=== PATIENT | female | born 1930 | race Hispanic/Latino ===

== ENCOUNTER 2017-07-29 04:59 | Inpatient (IN) | payer MEDICARE, OTHER ==
[~2017-07-29] VITALS: Ht 154.9 cm; Wt 39.9 kg
[2017-07-29] VITALS (7 sets, daily range): BP systolic 88–100; BP diastolic 40–60
[~2017-07-29 04:59] MED LIST: CRESTOR10 MG PO; FOSAMAX70 MG PO; XALATAN2.5 ML OU
[2017-07-29] MEDS ORDERED: ONDANSETRON HCL INJ 2 MG/ML VIAL IV STA (05:09)
[2017-07-29] MEDS ORDERED: ACETAMINOPHEN 1000 MG/100 ML IV STA (05:09)
[2017-07-29] MEDS ORDERED: SODIUM CHLORIDE 0.9% 1000ML 1,000 ML IV ONE ×2 (05:15→05:30)
[2017-07-29] MEDS ORDERED: LEVOFLOXACIN 500MG/D5W 100ML 100 ML IV STA (05:18)
[2017-07-29 05:26] LABS: BASOPHILS % 0.2 % (0.0-1.0); LYMPHOCYTES # (AUTO) 0.2 (1.0-3.2); LYMPHOCYTES % 1.6 % (18.0-39.1); MEAN CORPUSCULAR HEMOGLOBIN 33.7 pg (28-32); MEAN CORPUSCULAR HGB CONC 34.3 g/dL (31-35); MEAN CORPUSCULAR VOLUME 98.3 fL (81-99); MONOCYTES # (AUTO) 0.3 (0.2-0.8); MONOCYTES % 2.4 % (4.4-11.3); NEUTROPHILS # (AUTO) 12.6 (2.1-6.9); NEUTROPHILS % 95.3 % (38.7-80.0); PLATELET COUNT 245 x10e3/uL (140-360); RED BLOOD COUNT 3.56 x10e6/uL (3.6-5.1); RED CELL DISTRIBUTION WIDTH 12.8 % (11.7-14.4)
[2017-07-29 05:34] LABS: CLARITY,URINE CLEAR (CLEAR); COLOR,URINE YELLOW (YELLOW)
[2017-07-29 05:35] LABS: BILIRUBIN,URINE 1+ (NEGATIVE); KETONES,URINE 1+ (NEGATIVE); LEUKOCYTE ESTERASE ,URINE 2+ (NEGATIVE); NITRITE,URINE POSITIVE (NEGATIVE); PROTEIN,URINE DIPSTICK NEGATIVE (NEGATIVE); URINE UROBILINOGEN 1 mg/dL (0.2 - 1)
[2017-07-29] MEDS ORDERED: BETIMOL5 M1 OU (05:37)
[2017-07-29] MEDS ORDERED: ASPIR 8181 MG PO (05:37)
[2017-07-29] MEDS ORDERED: MULTIVITAMINS1 EAC7 PO (05:37)
[2017-07-29] MEDS ORDERED: SEROQUEL25 MG PO (05:37)
[2017-07-29] MEDS ORDERED: LIPITOR20 MG PO (05:37)
[2017-07-29] MEDS ORDERED: CELEXA20 MG PO (05:37)
[2017-07-29 05:38] LABS: BACTERIA,URINE FEW /HPF; EPITHELIAL CELLS,URINE FEW /LPF; MUCUS,URINE MODERATE (RARE)
[2017-07-29 05:45] LABS: ALANINE AMINOTRANSFERASE 25 IU/L (0-55); ALBUMIN 3.5 g/dL (3.5-5.0); ALBUMIN/GLOBULIN RATIO 0.9 (0.8-2.0); ALKALINE PHOSPHATASE 62 IU/L (40-150); ANION GAP 12.3 mmol/L (8-16); BLOOD UREA NITROGEN 12 mg/dL (7-26); BUN/CREATININE RATIO 18 (6-25); CALCIUM 9.3 mg/dL (8.4-10.2); CARBON DIOXIDE 27 mmol/L (22-29); CHLORIDE 102 mmol/L (98-107); CREATINE KINASE 23 IU/L (29-168); CREATININE, SERUM 0.68 mg/dL (0.57-1.11); EST GLOMERULAR FILTRATION RATE > 60 ML/MIN (60-); GLUCOSE 123 mg/dL (74-118); POTASSIUM 3.3 mmol/L (3.5-5.1); SODIUM 138 mmol/L (136-145)
[2017-07-29] MEDS ORDERED: LEVOFLOXACIN 500MG/D5W 100ML 100 ML IV ONE (05:46)
[2017-07-29] MEDS ORDERED: SODIUM CHLORIDE 0.9% 1000ML 1,000 ML ONE (05:46)
[2017-07-29] MEDS ORDERED: SODIUM CHLORIDE 0.9% 50ML 50 ML ONE (06:21)
[2017-07-29] MEDS ORDERED: IOPAMIDOL 370 MG/ML 200 ML INFUS..BTL INJ ONE (06:21)
--- NOTE | 2017-07-29 07:16 | Diagnostic Imaging Report ---
Examination: Single AP view of the chest. COMPARISON: December 02, 2013 INDICATION: Fever, vomiting, diarrhea DISCUSSION: Lines/tubes: None. Lungs: Diffuse reticular opacities throughout the lung. Pleura: There is no pleural effusion or pneumothorax. Heart and mediastinum: Heart size normal. Aortic calcifications. Bones and soft tissues: No acute bony abnormalities. IMPRESSION: 1. Diffuse interstitial opacities may reflect edema or other interstitial process. No consolidative pneumonia. Signed by: Dr. Meño Brunner M.D. on 07/29/2017 7:12 AM
--- NOTE | 2017-07-29 07:22 | Diagnostic Imaging Report ---
EXAMINATION: CT of the abdomen and pelvis with contrast. TECHNIQUE: Helical CT images of the abdomen and pelvis were performed from the lung bases to the lesser trochanters after the intravenous administration of 100 cc of Isovue 370 and the oral administration of none. Coronal and sagittal reformatted images were obtained. COMPARISON: None CLINICAL HISTORY:Fever, vomiting, diarrhea DISCUSSION: ABDOMEN/PELVIS: LOWER THORAX:Lower lobe atelectasis. Prominent interstitial markings. HEPATOBILIARY: 2.6 cm peripherally nodular enhancing lesion right hepatic lobe compatible with a hemangioma. Cyst in the left hepatic lobe. No intra-or extrahepatic biliary ductal dilation. Cholecystectomy. SPLEEN: No splenomegaly. PANCREAS: No focal masses or ductal dilatation. ADRENALS: No adrenal nodules. KIDNEYS/URETERS: No hydronephrosis, stones, or solid mass lesions. PELVIC ORGANS/BLADDER: Guzman catheter within the bladder. Pessary. PERITONEUM/RETROPERITONEUM: No free air or fluid. LYMPH NODES: No intra-abdominal, retroperitoneal, pelvic or inguinal lymphadenopathy. VESSELS: Vascular calcifications. GI TRACT: No distention or wall thickening. Diverticulosis. No inflammatory change. BONES AND SOFT TISSUE: Lower lumbar spondylosis. No soft tissue abnormalities. IMPRESSION: No acute CT finding. Sigmoid diverticulosis. Signed by: Dr. Meño Brunner M.D. on 07/29/2017 7:19 AM
[2017-07-29] MEDS ORDERED: SODIUM CHLORIDE 0.9% 1000ML 1,000 ML IV SCH ×2 (08:33→21:45)
[2017-07-29] MEDS ORDERED: ONDANSETRON HCL INJ 2 MG/ML VIAL IV PRN (08:45)
[2017-07-29] MEDS ORDERED: CEFTRIAXONE SOD 1 GM VIAL IV ONE (08:45)
--- OUTSIDE RECORDS SUMMARY | 2017-07-29 08:46 | XMS REPORT ---
Author Author [facility] Address Unknown Phone Unavailable Care Team Providers Care Intranet Specialist Name Role Phone CATARINO SHOEMAKER Unavailable Unavailable Problems This patient has no known problems. Allergies, Adverse Reactions, Alerts This patient has no known allergies or adverse reactions. Medications This patient has no known medications. Results Test Description Test Time Test Comments Text Results Atomic Results Result Comments CHEST SINGLE (PORTABLE) [place] [address] Patient Name: FLORENCIO BEDOLLA MR #: [id number] : 1930 Age/Sex: 87/F Req #: [id number] Adm Physician: Ordered by: CATARINO SHOEMAKER MD Report #: [id number] Location: ER Room/Bed: ___ Procedure: [id number] DX/CHEST SINGLE (PORTABLE) Exam Date: 07/29/17 Exam Time: 0645 REPORT STATUS: Signed Examination: Single AP view of the chest. COMPARISON: December 02, 2013 INDICATION: Fever, vomiting, diarrhea DISCUSSION: Lines/tubes: None. Lungs: Diffuse reticular opacities throughout the lung. Pleura : There is no pleural effusion or pneumothorax. Heart and mediastinum: Heart size normal. Aortic calcifications. Bones and soft tissues: No acute bony abnormalities. IMPRESSION: 1. Diffuse interstitial opacities may reflect edema or other interstitial process. No consolidative pneumonia. Signed by: Dr. Berenice Mesa M.D. on 07/29/2017 7:12 AM Dictated By: BERENICE MESA MD 1 Transcribed By: ALEC on 07/29/17711 COPY TO: CATARINO SHOEMAKER MD CT ABDOMEN/PELVIS W [place] [address] Patient Name: FLORENCIO BEDOLLA MR #: [id number] : 1930 Age/Sex: 87/F Req #: [id number] Adm Physician: Ordered by: CATARINO SHOEMAKER MD Report # : [id number] Location: ER Room/Bed: Procedure: [id number] CT/CT ABDOMEN/PELVIS W Exam Date: 07/29/17 Exam Time: 0630 REPORT STATUS: Signed EXAMINATION: CT of the abdomen and pelvis with contrast. TECHNIQUE: Helical CT images of the abdomen and pelvis were performed from the lung bases to the lesser trochanters after the intravenous administration of 100 cc of Isovue 370 and the oral administration of none. Coronal and sagittal reformatted images were obtained. COMPARISON: None CLINICAL HISTORY:Fever, vomiting, diarrhea DISCUSSION: ABDOMEN/PELVIS: LOWER THORAX:Lower lobe atelectasis. Prominent interstitial markings. HEPATOBILIARY: 2.6 cm peripherally nodular enhancing lesion right hepatic lobe compatible with a hemangioma. Cyst in the left hepatic lobe. No intra-or extrahepatic biliary ductal dilation. Cholecystectomy. SPLEEN: No splenomegaly. PANCREAS : No focal masses or ductal dilatation. ADRENALS: No adrenal nodules. KIDNEYS/URETERS: No hydronephrosis, stones, or solid mass lesions. PELVIC ORGANS/BLADDER: Guzman catheter within the bladder. Pessary. PERITONEUM/RETROPERITONEUM: No free air or fluid. LYMPH NODES: No intra- abdominal, retroperitoneal, pelvic or inguinal lymphadenopathy. VESSELS: Vascular calcifications. GI TRACT: No distention or wall thickening. Diverticulosis. No inflammatory change. BONES AND SOFT TISSUE: Lower lumbar spondylosis. No soft tissue abnormalities. IMPRESSION: No acute CT finding. Sigmoid diverticulosis. Signed by: Dr. Berenice Mesa M.D. on 07/29/2017 7:19 AM Dictated By: BERENICE MESA MD 8 Transcribed By: ALEC on 07/29/17718 COPY TO: CATARINO SHOEMAKER MD
[2017-07-29] MEDS ORDERED: ACETAMINOPHEN 325 MG TAB PO PRN (09:30)
[2017-07-29] MEDS: SOD CHL 0.45%/POT CHL 20MEQ 1,000 ML IV SCH ×2 (12:15→21:27)
--- NOTE | 2017-07-29 14:16 | History and Physical ---
PRIMARY CARE PHYSICIAN: . CHIEF COMPLAINT: Delirium from baseline Alzheimer dementia. Hematuria. Urinary tract infection, recurrent. HISTORY: This is an 87-year-old female with recurrent urinary tract infection. The patient had multiple antibiotic in the past. This time, she received Macrobid and had allergic reaction. She came to the emergency room at this time with a fever of 102.7. The patient's urinalysis is showing that she has significant infection. Her chemistry showed low sodium level but otherwise. WBC was 13.2. Microbiology is still pending. The patient did have imaging done, CT abdomen and pelvis with contrast, which has shown that she has no acute CT finding with sigmoid diverticulosis without diverticulitis. The patient is otherwise stable at this time. PAST MEDICAL HISTORY: Alzheimer dementia, recurrent urinary tract infection, osteoporosis, depression, cataract, and dementia with behavioral disturbance. HOME MEDICATIONS: Alendronate, aspirin, Lipitor, Celexa, Xalatan eyedrop, multivitamins, Seroquel, and timolol. ALLERGIES: NITROFURANTOIN AND PENICILLIN. SOCIAL HISTORY: Patient lives at home with her family, very well family support. She does not smoke or use alcohol. No recreational drugs. REVIEW OF SYSTEMS: Difficult to assess due to the patient's dementia. PHYSICAL EXAMINATION GENERAL: The patient is not in acute distress. She is awake. VITAL SIGNS: T-max is 102.7, blood pressure 101/50 down to 98/47. HEENT: Normocephalic, atraumatic. Anicteric. NECK: Supple grossly. PULMONARY: Diminished breath sounds. CARDIOVASCULAR: S1 and S2. Regular rate and rhythm. ABDOMEN: Soft. Tenderness suprapubic. EXTREMITIES: No cyanosis or edema. Guzman catheter in place. NEUROLOGIC: No focal deficit. LABORATORY: Sodium 138, potassium 3.3, chloride 102, bicarb 27, BUN 12, creatinine 0.7, and glucose 123. WBC 13.2, hemoglobin 12, hematocrit 35, and platelets 245. IMPRESSION 1. Sepsis, responded to IV fluid therefore no shock. 2. Fever and urinary tract infection. 3. 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 PLAN: Continue with IV antibiotics. Rocephin 1 gram q.12. Continue with IV fluid support. Replace electrolytes. We will monitor the patient closely. Job#: [id number] ANABELL
[2017-07-29] MEDS ORDERED: NON-FORMULARY MEDICATION (Timolol (Betimol) 1 DROP) OU SCH (17:00)
[2017-07-29] MEDS ORDERED: TIMOLOL MALEATE(OPTHALMIC) 1 EA BTL OP SCH (18:00)
[2017-07-29] MEDS: TIMOLOL MALEATE 0.5% OPTH DRP 5 ML BTL OU SCH (19:20)
[2017-07-29] MEDS: ATORVASTATIN 20 MG TAB PO SCH (21:27)
[2017-07-29] MEDS: CEFTRIAXONE SOD 1 GM VIAL IV SCH (21:27)
[2017-07-29] MEDS: LATANOPROST(OPTH) 2.5 ML BTL OU SCH (21:27)
[2017-07-30 01:31] VITALS: BP 95/50
[2017-07-30 06:24] VITALS: BP 111/59
--- NOTE | 2017-07-30 06:50 | Diagnostic Imaging Report ---
Examination: Single AP view of the chest. COMPARISON: 07/29/2017 INDICATION: Fluid overload DISCUSSION: Lines/tubes: None. Lungs: Diffuse reticular opacities throughout the lung, slightly improved. Pleura: There is no pleural effusion or pneumothorax. Heart and mediastinum: Heart size normal. Aortic calcifications. Bones and soft tissues: No acute bony abnormalities. Degenerative changes in the thoracic spine. IMPRESSION: 1. Minimally improved interstitial edema Signed by: Dr. Ky Robbins M.D. on 07/30/2017 6:47 AM
[2017-07-30 07:48] LABS: BASOPHILS % 0.2 % (0.0-1.0); EOSINOPHILS # (AUTO) 0.1 (0.0-0.4); HEMOGLOBIN 9.2 g/dL (12.0-16.0); LYMPHOCYTES # (AUTO) 0.8 (1.0-3.2); LYMPHOCYTES % 6.5 % (18.0-39.1); MEAN CORPUSCULAR HEMOGLOBIN 33.9 pg (28-32); MEAN CORPUSCULAR HGB CONC 32.9 g/dL (31-35); MEAN CORPUSCULAR VOLUME 103.3 fL (81-99); MONOCYTES # (AUTO) 0.3 (0.2-0.8); MONOCYTES % 2.8 % (4.4-11.3); NEUTROPHILS # (AUTO) 10.9 (2.1-6.9); NEUTROPHILS % 88.4 % (38.7-80.0); PLATELET COUNT 187 x10e3/uL (140-360); RED BLOOD COUNT 2.71 x10e6/uL (3.6-5.1); RED CELL DISTRIBUTION WIDTH 13.2 % (11.7-14.4)
[2017-07-30 08:00] VITALS: BP 111/59
[2017-07-30] MEDS: SOD CHL 0.45%/POT CHL 20MEQ 1,000 ML IV SCH (08:15)
[2017-07-30 08:25] LABS: ANION GAP 9.3 mmol/L (8-16); BLOOD UREA NITROGEN 5 mg/dL (7-26); BUN/CREATININE RATIO 10 (6-25); CARBON DIOXIDE 25 mmol/L (22-29); CHLORIDE 107 mmol/L (98-107); EST GLOMERULAR FILTRATION RATE > 60 ML/MIN (60-); GLUCOSE 97 mg/dL (74-118); POTASSIUM 3.3 mmol/L (3.5-5.1); SODIUM 138 mmol/L (136-145)
[2017-07-30] MEDS: CEFTRIAXONE SOD 1 GM VIAL IV SCH ×2 (08:38→21:31)
[2017-07-30] MEDS: TIMOLOL MALEATE 0.5% OPTH DRP 5 ML BTL OU SCH ×2 (08:38→17:00)
[2017-07-30] MEDS: CITALOPRAM HYDROBROMIDE 20 MG TAB PO SCH (08:39)
[2017-07-30] MEDS: ASPIRIN 81 MG CHEW TAB PO SCH (08:39)
[2017-07-30] MEDS: MULTIVITAMINS/MINERALS TAB PO SCH (08:39)
[2017-07-30] MEDS ORDERED: CEFTRIAXONE SOD 1 GM VIAL IV SCH (08:45)
[2017-07-30 08:57] LABS: FOLATE 3.2 ng/mL (7.0-15.4)
[2017-07-30] MEDS ORDERED: POTASSIUM CHLORIDE 10 MEQ TABCR PO ONE (09:00)
[2017-07-30] MEDS: CYANOCOBALAMIN INJ 1,000 MCG/ML VIAL IM SCH (10:15)
[2017-07-30] MEDS: FOLIC ACID/CYANOCOB/PYRIDOXINE TAB PO SCH (10:15)
[2017-07-30] MEDS: THIAMINE HCL INJ 100 MG/ML 2ML VIAL IV SCH (10:15)
[2017-07-30 12:00] VITALS: BP 127/80
[2017-07-30] MEDS ORDERED: ACETAMINOPHEN 325 MG TAB PO PRN (13:30)
[2017-07-30 16:00] VITALS: BP 111/61
[2017-07-30] MEDS: ZIPRASIDONE 20 MG VIAL IM PRN (18:45)
[2017-07-30 20:33] VITALS: BP 139/83
[2017-07-30] MEDS: ATORVASTATIN 20 MG TAB PO SCH (21:00)
[2017-07-30] MEDS: LATANOPROST(OPTH) 2.5 ML BTL OU SCH (21:31)
[2017-07-30] MEDS ORDERED: SODIUM CHLORIDE 0.9% 1000ML 1,000 ML IV SCH (21:45)
[2017-07-31 01:01] VITALS: BP 147/71
[2017-07-31] MEDS: ZIPRASIDONE 20 MG VIAL IM PRN (04:02)
[2017-07-31 06:15] VITALS: BP 140/72
[2017-07-31] MEDS: THIAMINE HCL INJ 100 MG/ML 2ML VIAL IV SCH (08:38)
[2017-07-31] MEDS: CEFTRIAXONE SOD 1 GM VIAL IV SCH ×2 (08:38→21:00)
[2017-07-31] MEDS: CYANOCOBALAMIN INJ 1,000 MCG/ML VIAL IM SCH (08:38)
[2017-07-31] MEDS: TIMOLOL MALEATE 0.5% OPTH DRP 5 ML BTL OU SCH ×2 (08:39→17:00)
[2017-07-31] MEDS: MULTIVITAMINS/MINERALS TAB PO SCH (08:39)
[2017-07-31] MEDS: FOLIC ACID/CYANOCOB/PYRIDOXINE TAB PO SCH (08:39)
[2017-07-31] MEDS: CITALOPRAM HYDROBROMIDE 20 MG TAB PO SCH (08:39)
[2017-07-31] MEDS: ASPIRIN 81 MG CHEW TAB PO SCH (08:39)
[2017-07-31] MEDS ORDERED: POTASSIUM CHLORIDE 10 MEQ TABCR PO NR (10:00)
[2017-07-31] MEDS: MEMANTINE 10 MG TAB PO SCH ×2 (10:03→16:59)
[2017-07-31 12:00] VITALS: BP 104/66
[2017-07-31 16:00] VITALS: BP 157/87
[2017-07-31 20:30] VITALS: BP 148/88
[2017-07-31] MEDS: ATORVASTATIN 20 MG TAB PO SCH (21:00)
[2017-07-31] MEDS: LATANOPROST(OPTH) 2.5 ML BTL OU SCH (21:00)
[2017-08-01] VITALS (7 sets, daily range): BP systolic 98–152; BP diastolic 60–81
[2017-08-01] MEDS: CEFTRIAXONE SOD 1 GM VIAL IV SCH ×2 (08:20→21:40)
[2017-08-01] MEDS: CYANOCOBALAMIN INJ 1,000 MCG/ML VIAL IM SCH (08:20)
[2017-08-01] MEDS: FOLIC ACID/CYANOCOB/PYRIDOXINE TAB PO SCH (08:20)
[2017-08-01] MEDS: TIMOLOL MALEATE 0.5% OPTH DRP 5 ML BTL OU SCH ×2 (08:20→16:28)
[2017-08-01] MEDS: ASPIRIN 81 MG CHEW TAB PO SCH (08:20)
[2017-08-01] MEDS: THIAMINE HCL INJ 100 MG/ML 2ML VIAL IV SCH (08:20)
[2017-08-01] MEDS: MEMANTINE 10 MG TAB PO SCH ×2 (08:20→16:28)
[2017-08-01] MEDS: MULTIVITAMINS/MINERALS TAB PO SCH (08:20)
[2017-08-01] MEDS: LATANOPROST(OPTH) 2.5 ML BTL OU SCH (21:40)
[2017-08-01] MEDS: QUETIAPINE FUMARATE 25 MG TAB PO PRN (21:40)
[2017-08-01] MEDS: ATORVASTATIN 20 MG TAB PO SCH (21:40)
[2017-08-02] VITALS (8 sets, daily range): BP systolic 106–136; BP diastolic 56–74
[2017-08-02] MEDS: CEFTRIAXONE SOD 1 GM VIAL IV SCH ×2 (08:56→21:30)
[2017-08-02] MEDS: TIMOLOL MALEATE 0.5% OPTH DRP 5 ML BTL OU SCH ×2 (08:56→17:24)
[2017-08-02] MEDS: MULTIVITAMINS/MINERALS TAB PO SCH (08:56)
[2017-08-02] MEDS: THIAMINE HCL INJ 100 MG/ML 2ML VIAL IV SCH (08:56)
[2017-08-02] MEDS: ASPIRIN 81 MG CHEW TAB PO SCH (08:56)
[2017-08-02] MEDS: CYANOCOBALAMIN INJ 1,000 MCG/ML VIAL IM SCH (08:56)
[2017-08-02] MEDS: MEMANTINE 10 MG TAB PO SCH ×2 (08:56→17:24)
[2017-08-02] MEDS: FOLIC ACID/CYANOCOB/PYRIDOXINE TAB PO SCH (08:57)
[2017-08-02 09:28] LABS: BASOPHILS % 0.2 % (0.0-1.0); EOSINOPHILS % 0.5 % (0.0-6.0); HEMATOCRIT 33.1 % (34.2-44.1); LYMPHOCYTES # (AUTO) 1.3 (1.0-3.2); LYMPHOCYTES % 20.6 % (18.0-39.1); MEAN CORPUSCULAR HEMOGLOBIN 33.7 pg (28-32); MEAN CORPUSCULAR HGB CONC 33.2 g/dL (31-35); MEAN CORPUSCULAR VOLUME 101.5 fL (81-99); MONOCYTES # (AUTO) 0.5 (0.2-0.8); MONOCYTES % 7.8 % (4.4-11.3); NEUTROPHILS # (AUTO) 4.4 (2.1-6.9); NEUTROPHILS % 70.6 % (38.7-80.0); PLATELET COUNT 277 x10e3/uL (140-360); RED BLOOD COUNT 3.26 x10e6/uL (3.6-5.1); RED CELL DISTRIBUTION WIDTH 12.6 % (11.7-14.4)
[2017-08-02 09:44] LABS: ANION GAP 11.6 mmol/L (8-16); BLOOD UREA NITROGEN 10 mg/dL (7-26); BUN/CREATININE RATIO 17 (6-25); CALCIUM 8.8 mg/dL (8.4-10.2); CARBON DIOXIDE 29 mmol/L (22-29); CHLORIDE 101 mmol/L (98-107); CREATININE, SERUM 0.59 mg/dL (0.57-1.11); EST GLOMERULAR FILTRATION RATE > 60 ML/MIN (60-); GLUCOSE 142 mg/dL (74-118); POTASSIUM 3.6 mmol/L (3.5-5.1); SODIUM 138 mmol/L (136-145)
[2017-08-02] MEDS: QUETIAPINE FUMARATE 25 MG TAB PO PRN (21:30)
[2017-08-02] MEDS: LATANOPROST(OPTH) 2.5 ML BTL OU SCH (21:30)
[2017-08-02] MEDS: ATORVASTATIN 20 MG TAB PO SCH (21:30)
[2017-08-03 00:03] VITALS: BP 118/67
[2017-08-03 05:36] VITALS: BP 121/64
[2017-08-03 08:32] VITALS: BP 113/56
[2017-08-03 08:57] VITALS: BP 113/56
[2017-08-03] MEDS: TIMOLOL MALEATE 0.5% OPTH DRP 5 ML BTL OU SCH (09:10)
[2017-08-03] MEDS: MULTIVITAMINS/MINERALS TAB PO SCH (09:10)
[2017-08-03] MEDS: ASPIRIN 81 MG CHEW TAB PO SCH (09:10)
[2017-08-03] MEDS: CEFTRIAXONE SOD 1 GM VIAL IV SCH (09:10)
[2017-08-03] MEDS: FOLIC ACID/CYANOCOB/PYRIDOXINE TAB PO SCH (09:11)
[2017-08-03] MEDS: MEMANTINE 10 MG TAB PO SCH (09:11)
[2017-08-03] MEDS: CYANOCOBALAMIN INJ 1,000 MCG/ML VIAL IM SCH (09:11)
[2017-08-03] MEDS: THIAMINE HCL INJ 100 MG/ML 2ML VIAL IV SCH (09:11)
--- NOTE | 2017-08-03 10:06 | Discharge Summary ---
PRIMARY CARE PHYSICIAN: Dr. Contreras Harris FINAL DIAGNOSES 1. Urinary tract infection associated with confusion and delirium from baseline dementia. 2. Progressive Alzheimer dementia. 3. Electrolyte disorder, corrected. 4. 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 SUMMARY: This is an 87-year-old female who came in with confusion and agitation. She does have a urinary tract infection. Patient was given antibiotics. She is doing much better now. The patient is stable. She is comfortable. She does have B12 deficiency. On evaluation, her B12 level was 189. B12 and folic acid was given. Patient is otherwise stable. Electrolyte correction is done. The urine culture final did not have any significant growth. It was 10,000-50,000 colony unit. Blood cultures are negative. The patient is stable. She will go home today on: 1. B12 1000 mcg IM every 2 weeks with syringes and needles needed. 2. Namenda 5 mg b.i.d. 3. Folic acid 1 mg 1 b.i.d. The patient is stable. She will go home today. Follow up with family physician next week. I offered Hospice care for the patient's advanced dementia, but the patient and family denied for now. I also requested for home health for the patient to go home. The patient is stable and discharged home today. Job#: [id number] EDEL
[2017-08-03 12:38] VITALS: BP 102/55
[2017-08-03] MEDS ORDERED: FOLIC ACID1 MG PO (13:42)
[2017-08-03] MEDS ORDERED: B12 1000MCG (13:45)
[2017-08-03] MEDS ORDERED: NAMENDA10 MG PO (13:45)
[2017-08-04] MEDS ORDERED: THIAMINE HCL 100 MG TAB PO SCH (09:00)
== END 2017-08-03 14:05 | disposition home or self-care (01) | DRG 871 ==
LOC: ER 04:59 → ERHOLD 08:42 → MED/SURG2 09:20 → OBSVTOIN 12:08 → MED/SURG2 07-30 10:57
PROVIDERS: ADMIT Internal Medicine; ATTEND Internal Medicine
DX: A41.9 Sepsis, unspecified organism (principal); G93.40 Encephalopathy, unspecified; E87.8 Other disorders of electrolyte and fluid balance, not elsewhere classified; N39.0 Urinary tract infection, site not specified; G30.9 Alzheimer's disease, unspecified; F05 Delirium due to known physiological condition; F02.81 Dementia in other diseases classified elsewhere, unspecified severity, with behavioral disturbance; Z79.899 Other long term (current) drug therapy; Z66 Do not resuscitate; E53.8 Deficiency of other specified B group vitamins; R65.20 Severe sepsis without septic shock
CPT/HCPCS: 36415; 51700; 71045; 74177; 80048; 80053; 81001; 82550; 82553; 82607; 82746; 83605; 83880; 84443; 84484; 85025; 87040; 87086; 93005; 96360; 96365; 96374; 96376; 99284; J0696; J1956; J2405; J3411; J3420; J3486; J7030; Q9967

== ENCOUNTER 2018-02-02 11:29 | Emergency (ER) | payer MEDICARE, OTHER ==
[~2018-02-02] VITALS: Ht 154.9 cm; Wt 45.8 kg
[~2018-02-02 11:29] MED LIST changes: +ASPIR 8181 MG PO; +B12 1000MCG; +BETIMOL5 M1 OU; +CELEXA20 MG PO; +FOLIC ACID1 MG PO; +LIPITOR20 MG PO; +MULTIVITAMINS1 EAC7 PO; +NAMENDA10 MG PO; +SEROQUEL25 MG PO
[2018-02-02] MEDS ORDERED: ONDANSETRON HCL INJ 2 MG/ML VIAL IV STA (11:40)
[2018-02-02] MEDS ORDERED: SODIUM CHLORIDE 0.9% 500ML 500 ML IV ONE (11:45)
[2018-02-02 12:42] LABS: BASOPHILS % 0.6 % (0.0-1.0); EOSINOPHILS # (AUTO) 0.1 (0.0-0.4); EOSINOPHILS % 1.4 % (0.0-6.0); HEMATOCRIT 38.3 % (34.2-44.1); HEMOGLOBIN 12.7 g/dL (12.0-16.0); LYMPHOCYTES # (AUTO) 1.9 (1.0-3.2); LYMPHOCYTES % 30.9 % (18.0-39.1); MEAN CORPUSCULAR HEMOGLOBIN 34.1 pg (28-32); MEAN CORPUSCULAR HGB CONC 33.2 g/dL (31-35); MONOCYTES # (AUTO) 0.4 (0.2-0.8); MONOCYTES % 6.1 % (4.4-11.3); NEUTROPHILS # (AUTO) 3.8 (2.1-6.9); NEUTROPHILS % 60.8 % (38.7-80.0); PLATELET COUNT 265 x10e3/uL (140-360); RED BLOOD COUNT 3.72 x10e6/uL (3.6-5.1); RED CELL DISTRIBUTION WIDTH 12.9 % (11.7-14.4)
[2018-02-02 12:54] LABS: ALANINE AMINOTRANSFERASE 9 IU/L (0-55); ALBUMIN 3.9 g/dL (3.5-5.0); ALKALINE PHOSPHATASE 69 IU/L (40-150); AMYLASE 97 U/L (25-125); ANION GAP 17.8 mmol/L (8-16); BLOOD UREA NITROGEN 8 mg/dL (7-26); BUN/CREATININE RATIO 12 (6-25); CALCIUM 9.6 mg/dL (8.4-10.2); CARBON DIOXIDE 24 mmol/L (22-29); CHLORIDE 102 mmol/L (98-107); CREATINE KINASE 31 IU/L (29-168); CREATININE, SERUM 0.67 mg/dL (0.57-1.11); EST GLOMERULAR FILTRATION RATE > 60 ML/MIN (60-); GLUCOSE 94 mg/dL (74-118); LIPASE 27 U/L (8-78); POTASSIUM 3.8 mmol/L (3.5-5.1); SODIUM 140 mmol/L (136-145)
[2018-02-02 13:16] LABS: BILIRUBIN,URINE NEGATIVE (NEGATIVE); CLARITY,URINE SL CLOUDY (CLEAR); COLOR,URINE YELLOW (YELLOW); KETONES,URINE NEGATIVE (NEGATIVE); LEUKOCYTE ESTERASE ,URINE 1+ (NEGATIVE); NITRITE,URINE POSITIVE (NEGATIVE); PROTEIN,URINE DIPSTICK NEGATIVE (NEGATIVE); URINE UROBILINOGEN 0.2 mg/dL (0.2 - 1)
[2018-02-02 13:20] LABS: BACTERIA,URINE MANY /HPF
[2018-02-02] MEDS ORDERED: OMEPRAZOLE40 MG PO (13:39)
[2018-02-02] MEDS ORDERED: LEXAPRO10 MG PO (13:39)
[2018-02-02] MEDS ORDERED: CEFTRIAXONE SOD 1 GM VIAL IV SCH (14:00)
[2018-02-02] MEDS ORDERED: IOPAMIDOL 370 MG/ML 200 ML INFUS..BTL INJ ONE (14:45)
[2018-02-02] MEDS ORDERED: SODIUM CHLORIDE 0.9% 50ML 50 ML ONE ×2 (14:45→15:25)
--- NOTE | 2018-02-02 14:46 | Diagnostic Imaging Report ---
EXAM: CT Abdomen and Pelvis WITH contrast INDICATION: \S\abdominal pain, IV contrast \[id number] \S\1335 COMPARISON: CT abdomen and pelvis 07/29/2017 TECHNIQUE: Abdomen and pelvis were scanned utilizing a multidetector helical scanner from the lung base to the pubic symphysis after administration of IV contrast. Coronal and sagittal reformations were obtained. Routine protocol was performed. Scan was performed when during portal venous phase. IV CONTRAST: 100 mL of Isovue-370 ORAL CONTRAST: Water RADIATION DOSE: Total DLP: 167.7 mGy*cm Estimated effective dose: (DLP x 0.015 x size factor) mSv COMPLICATIONS: None FINDINGS: LINES and TUBES: None. LOWER THORAX: Groundglass opacity with septal thickening in both lower lobes may reflect chronic pulmonary edema or early interstitial lung disease. This is unchanged. Moderate calcifications of the mitral annulus. HEPATOBILIARY: Unchanged 2.6 cm hepatic hemangioma on series 2, image 10 hypodense lesion in the left. No new lesions in the liver. No biliary ductal dilation. GALLBLADDER: Surgically absent. SPLEEN: No splenomegaly. PANCREAS: No focal masses or ductal dilatation. ADRENALS: No adrenal nodules KIDNEYS/URETERS: Kidneys enhance symmetrically. No hydronephrosis. No cystic or solid mass lesions. No stones. GI TRACT: No abnormal distention, wall thickening, or evidence of bowel obstruction. Scattered diverticulosis throughout the sigmoid colon remains stable. Appendix is normal. PELVIC ORGANS/BLADDER: Diffuse wall thickening of the urinary bladder may reflect chronic inflammation. Pessary. LYMPH NODES: No lymphadenopathy. VESSELS: Moderate atherosclerotic calcifications of the abdominal aorta and pelvic arteries without aneurysm. PERITONEUM / RETROPERITONEUM: No free air or fluid. BONES: Minimal anterolisthesis of L4 over L5 remains unchanged. Posterior disc protrusion at L4-L5 resulting in minimal spinal stenosis. Mild multilevel degenerative changes of the lumbar spine. SOFT TISSUES: Unremarkable. IMPRESSION: 1. Stable size of moderate diverticulosis without diverticulitis. 2. Chronic wall thickening of the urinary bladder may reflect chronic inflammation. Pessary in place. 3. Cholecystectomy. Signed by: Dr. Kaleigh Braun M.D. on 02/02/2018 2:43 PM
--- OUTSIDE RECORDS SUMMARY | 2018-02-06 13:20 | XMS REPORT | Summary of Care ---
Author Author [facility] [place] Organization [facility] [place] Address Unknown Phone Unavailable Encounter HQ Milantr_joe(FIN) [id number] Date(s): 11/14/14 - 11/14/14 [facility] [place] [address] [place], [place] [id number] [place] [address] [phone] Discharge Disposition: Home Attending Physician: Eze Collins MD Vital Signs No data available for this section Problem List No data available for this section Allergies, Adverse Reactions, Alerts Substance Reaction Severity Status penicillins Active Medications No data available for this section Results No data available for this section Immunizations Vaccine Date Refusal Reason influenza virus vaccine, inactivated1 07/11/13 Patient Refuses pneumococcal 23-valent vaccine2 07/11/13 Patient Refuses 1Result Comment: states she will talk to her PCP about it 2Result Comment: states she will talk to her PCP about it Procedures Procedure Date Related Diagnosis Body Site Cholecystectomy Cystoscopy Social History No data available for this section Assessment and Plan No data available for this section
--- OUTSIDE RECORDS SUMMARY | 2018-02-06 13:20 | XMS REPORT | Continuity of Care Document ---
Author Author [facility] Interface Address Unknown Phone Unavailable Problems Problem Status Onset Date Classification Date Reported Comments Source Traumatic subarachnoid hemorrhage with loss of consciousness of 30 minutes or less, initial encounter 07/07/2017 10/04/2017 [facility] Traumatic subarachnoid hemorrhage without loss of consciousness, initial encounter 07/06/2017 09/27/2017 [facility] HEMMORRHAGE Active 06/21/2017 [facility] FALL Active 06/21/2017 [facility] SI Active 06/15/2017 [facility] ACUTE UTI, ALTERED MENTAL STATUS Active 06/15/2017 [facility] FALLS, HYPOKALEMIA, HYPOMAGNESEMIA, TACH Active 07/10/2013 [facility] FALLEN 3X , HISTORY OF STROKE Active 07/10/2013 [facility] 338 - PAIN NEC Active 11/13/2012 [facility] [place] Laceration without foreign body of other part of head, initial encounter 09/27/2017 [facility] Cervicalgia 09/27/2017 [facility] 09/27/2017 [facility] in right shoulder 09/27/2017 [facility] in right elbow 09/27/2017 [facility] in left ankle and joints of left foot 09/27/2017 [facility] in right ankle and joints of right foot 09/27/2017 [facility] Alzheimer's disease, unspecified 09/27/2017 [facility] Personal history of transient ischemic attack , and cerebral infarction without residual deficits 09/27/2017 [facility] Toxic encephalopathy 09/26/2017 [facility] Moderate protein-calorie malnutrition 09/26/2017 [facility] Dehydration 09/26/2017 [facility] Dementia in other diseases classified elsewhere with behavioral disturbance 09/26/2017 [facility] Body mass index 19.9 or less, adult 09/26/2017 [facility] Unspecified Escherichia coli [E. coli] as the cause of diseases classified elsewhere 09/26/2017 [facility] Age-related osteoporosis without current pathological fracture 09/26/2017 [facility] Other specified sepsis 10/04/2017 [facility] Other frontotemporal dementia 10/04/2017 [facility] Dementia in other diseases classified elsewhere without behavioral disturbance 10/04/2017 [facility] Severe sepsis without septic shock 10/04/2017 [facility] Urinary tract infection, site not specified 10/04/2017 [facility] Hypo-osmolality and hyponatremia 10/04/2017 [facility] Encounter for immunization 10/04/2017 [facility] Do not resuscitate 10/04/2017 [facility] Hyperlipidemia, unspecified 10/04/2017 [facility] Coma scale, best verbal response, confused conversation, at arrival to emergency department 10/04/2017 [facility] Essential hypertension 10/04/2017 [facility] Fall on same level, unspecified, initial encounter 10/04/2017 [facility] Allergy status to penicillin 10/04/2017 [facility] Unspecified glaucoma 10/04/2017 [facility] Hypokalemia 10/04/2017 [facility] Coma scale, best motor response, obeys commands, at arrival to emergency department 10/04/2017 [facility] Coma scale, eyes open, spontaneous, at arrival to emergency department 10/04/2017 [facility] Moderate protein-calorie malnutrition Active Problem 10/04/2017 [facility] TRAUM SUBRAC HEM W LOC OF UNSP DURATION, Active [facility] URINARY TRACT INFECTION, SITE NOT SPECIF Active [facility] ALTERED MENTAL STATUS, UNSPECIFIED Active [facility] Medications Medication Details Route Status Patient Instructions Ordering Provider Order Date Source pregabalin 100 mg oral capsule 100 mg=1 cap, PO, Q12H, # 60 cap, 0 Refill(s) Active 06/28/2017 [facility] tramadol hydrochloride 50 MG Oral Tablet 50 mg=1 tab, PO, Q6H, PRN Pain Score 6-10, X 3 day, # 5 tab, 0 Refill(s) No Longer Active 06/28/2017 [facility] Cefuroxime 500 MG Oral Tablet [Ceftin] 500 mg=1 tab, PO, BID, X 1 day, # 2 tab, 0 Refill(s), Pharmacy: [facility]/pharmacy #[id number] No Longer Active 06/28/2017 [facility] Lyrica 100 mg, 1 cap, Route: PO, Drug form: CAP, Q12H, Dosing Weight 45.909, kg, Start date: 06/26/17 21:00:00 MANUFACTURE SPECIALIST, Duration: 30 day, Stop date: 07/26/17 9:00:00 CDTNotes: (Same as: Lyrica) No Longer Active 06/27/2017 [facility] Milk of Magnesia 60 ml, Route: PO, Drug Form: SUSP, Dosing Weight 46.364, kg, ONCE, Start date: 06/26/17 15:56:00 MANUFACTURE SPECIALIST, Stop date: 06/26/17 15:56:00 CSTNotes: (Same as: Milk of Magnesia, MOM) Inactive 06/26/2017 [facility] Ceftriaxone 1 gm, Route: IVPB, Drug form: PDR/INJ, [id number], Dosing Weight 45.909, kg, Start date: 06/25/17 17:00:00 MANUFACTURE SPECIALIST, Duration: 4 day, Stop date: 06/28/17 17:00:00 MANUFACTURE SPECIALIST, ABX Indication: Urinary Tract InfectionNotes: (Same As: Rocephin). Use with 100 mL NS and infuse over 30 min MEDICATION WASTE Product Size: 1000 mg Product Wasted: ___ mg No Longer Active 06/25/2017 [facility] Vancomycin 750 mg, Route: IVPB, Q24H, Dosing Weight 45.909, kg, Start date: 06/24/17 10:00:00 MANUFACTURE SPECIALIST, Duration: 10 day, Stop date: 07/03/17 10:00:00 CDT, ABX Indication: Other (specify in Comments)Notes: TIME CRITICAL MEDICATION (Same As: Vancocin) Infusion rate 2001 mg: infuse over 2.5 hours For adult patients only: Round to nearest 250 mg per Medical Staff approval MEDICATION WASTE Product Size: 1000 mg Product Wasted: ___ mg No Longer Active 06/24/2017 [facility] Lyrica 75 mg, 1 cap, Route: PO, Drug form: CAP, Q12H, Dosing Weight 45.909, kg, Start date: 06/24/17 9:00:00 MANUFACTURE SPECIALIST, Duration: 30 day, Stop date: 07/23/17 21:00:00 CDTNotes: (Same as: Lyrica) No Longer Active 06/24/2017 [facility] tramadol hydrochloride 50 MG Oral Tablet 50 mg, 1 tab, Route: PO, Drug form: TAB, Q6H, Dosing Weight 45.909, kg, PRN Pain Score 6-10, Start date: 06/24/17 7:29:00 MANUFACTURE SPECIALIST, Duration: 30 day, Stop date: 07/24/17 7:28:00 CDTNotes: Not to exceed 400mg/day. (Same As: Ultram) No Longer Active 06/24/2017 [facility] cefepime 1 gm, Route: IVPB, Drug form: INJ, Q8Hnow, Dosing Weight 45.909, kg, (CrCl 30 - 49 ml/min), Start date: 06/23/17 10:00:00 MANUFACTURE SPECIALIST, Duration: 7 day, Stop date: 06/30/17 2:00:00 MANUFACTURE SPECIALIST, ABX Indication: Urinary Tract InfectionNotes: (Same As: Maxipime) MEDICATION WASTE Product Size: 1000 mg Product Wasted: _0__ mg No Longer Active 06/23/2017 [facility] Potassium Chloride 40 mEq, Route: PO, Drug form: ERTAB, ONCE, Dosing Weight 45.909, kg, Start date: 06/23/17 10:00:00 MANUFACTURE SPECIALIST, Stop date: 06/23/17 10:00:00 MANUFACTURE SPECIALIST Inactive 06/23/2017 [facility] vancomycin + Sodium Chloride 0.9% IV 250 mL 1.25 gm, Route: IVPB, ONCE, Priority: STAT, Start date: 06/23/17 9:58:00 MANUFACTURE SPECIALIST, Stop date: 06/23/17 9:58:00 MANUFACTURE SPECIALIST, ABX Indication: ED - Suspected SepsisNotes: TIME CRITICAL MEDICATION (Same As: Vancocin) Infusion rate 2001 mg: infuse over 2.5 hours For adult patients only: Round to nearest 250 mg per Medical Staff approval MEDICATION WASTE Product Size: 1000 mg Product Wasted: ___ mg Inactive 06/23/2017 [facility] Insulin Lispro 8 unit, 0.08 mL, Route: SUB-Q, Drug form: SOLN, TID-Before Meals, Dosing Weight 45.909, kg, PRN Blood Glucose Results, Start date: 06/23/17 8:50:00 MANUFACTURE SPECIALIST, Duration: 30 day, Stop date: 07/23/17 8:49:00 CDTNotes: (Same as: Humalog ) Roll in palms of hands gently; Do not shake `vigorously. "Single Patient Use Only " WASTE: F/P - Black; E - Municipal Trash Bin Stable for 28 days at room temperature. Expires in days from Date No Longer Active 06/23/2017 [facility] Glucagon 1 mg, Route: IM, Drug form: PDR/INJ, PRN, Dosing Weight 45.909, kg, PRN Blood Glucose Results, Start date: 06/23/17 8:50:00 MANUFACTURE SPECIALIST, Duration: 30 day, Stop date: 07/23/17 9:49:00 CDT No Longer Active 06/23/2017 [facility] Dextrose 50% Syringe 12.5 gm, 25 mL, Route: IVP, Drug Form: INJ, Dosing Weight 45.909, kg, PRN, PRN Blood Glucose Results, Start date: 06/23/17 8:50:00 MANUFACTURE SPECIALIST, Duration: 30 day, Stop date: 07/23/17 9:49:00 CDT No Longer Active 06/23/2017 [facility] Potassium Chloride 40 mEq, 2 tab, Route: PO, Drug form: ERTAB, ONCE, Dosing Weight 45.909, kg, Start date: 06/23/17 6:41:00 MANUFACTURE SPECIALIST, Stop date: 06/23/17 6:41:00 CSTNotes: (Same as: K-Dur 20) "Do Not Crush" With food and full glass of water Inactive 06/23/2017 [facility] Fosamax 10 mg, 1 tab, Route: PO, Drug form: TAB, [id number], Start date: 06/23/17 6:30:00 MANUFACTURE SPECIALIST, Duration: 30 day, Stop date: 07/22/17 6:30:00 CDTNotes: Non-Formulary Drug Give 30 min before breakfast w/6oz water. Sit upright for 30 min after dose. "Do Not Crush" (Same as: Fosamax) No Longer Active 06/23/2017 [facility] potassium chloride 20 mEq oral tablet, extended release 40 mEq, 2 tab, Route: PO, Drug form: ERTAB, ONCE, Dosing Weight 45.909, kg, Start date: 06/23/17 2:35:00 MANUFACTURE SPECIALIST, Stop date: 06/23/17 2:35:00 MANUFACTURE SPECIALIST Inactive 06/23/2017 [facility] heparin sodium, porcine 2500 UNT/ML Injectable Solution 5,000 unit, 1 mL, Route: SUB-Q, Drug form: INJ, Q8H, Dosing Weight 45.909, kg, Start date: 06/22/17 23:55:00 MANUFACTURE SPECIALIST, Duration: 30 day, Stop date: 07/22/17 16:00:00 CDTNotes: porcine heparin No Longer Active 06/23/2017 [facility] Crestor 10 mg, 1 tab, Route: PO, Drug form: TAB, Bedtime, Dosing Weight 72.727, kg, Start date: 06/22/17 21:00:00 MANUFACTURE SPECIALIST, Duration: 30 day, Stop date: 07/21/17 21:00:00 CDTNotes: (Same As: Crestor) No Longer Active 06/23/2017 [facility] Seroquel 12.5 mg, 0.5 tab, Route: PO, Drug form: TAB, Bedtime, Dosing Weight 45.909, kg, Start date: 06/22/17 21:00:00 MANUFACTURE SPECIALIST, Duration: 30 day, Stop date: 07/21/17 21:00:00 CDT No Longer Active 06/23/2017 [facility] latanoprost 1 drp, Route: BOTH EYES, Bedtime, Drug form: SOLN, Start date: 06/22/17 21:00:00 MANUFACTURE SPECIALIST, Duration: 30 day, Stop date: 07/21/17 21:00:00 CDT No Longer Active 06/23/2017 [facility] cefdinir 300 mg, 1 cap, Route: PO, Drug form: CAP, [id number], Start date: 06/22/17 18:00:00 MANUFACTURE SPECIALIST, Duration: 7 day, Stop date: 06/29/17 6:00:00 CSTNotes: (Same As: Omnicef) No Longer Active 06/23/2017 [facility] Fosamax 70 mg, Route: PO, Drug form: TAB, Q7D, Dosing Weight 45.909, kg, Start date: 06/22/17 16:00:00 MANUFACTURE SPECIALIST, Duration: 30 day, Stop date: 07/20/17 9:00:00 CDT Inactive 06/22/2017 [facility] Metoprolol 2.5 mg, 2.5 mL, Route: IVP, Drug form: INJ, ONCE, Dosing Weight 45.909, kg, Start date: 06/22/17 15:24:00 MANUFACTURE SPECIALIST, Stop date: 06/22/17 15:24:00 MANUFACTURE SPECIALIST Inactive 06/22/2017 [facility] Sodium Chloride 1000 MG Oral Tablet 1 gm, 1 tab, Route: PO, Drug form: TAB, Q8Hnow, Dosing Weight 45.909, kg, Priority: NOW, Start date: 06/22/17 13:44:00 MANUFACTURE SPECIALIST, Stop date: 07/22/17 6:00:00 CDT No Longer Active 06/22/2017 [facility] Levaquin 500 mg, Route: PO, Drug form: TAB, [id number], Dosing Weight 45.909, kg, Start date: 06/22/17 13:00:00 MANUFACTURE SPECIALIST, Duration: 3 day, Stop date: 06/24/17 13:00:00 MANUFACTURE SPECIALIST, ABX Indication: Urinary Tract Infection Inactive 06/22/2017 [facility] Alendronic acid 70 MG Oral Tablet [Fosamax] 70 mg=1 tab, PO, Q7D, # 12 tab, 0 Refill(s) Active 06/22/2017 [facility] Benadryl 12.5 mg, 5 mL, Route: PO, Drug form: LIQ, ONCE, Dosing Weight 45.909, kg, Start date: 06/22/17 10:30:00 MANUFACTURE SPECIALIST, Stop date: 06/22/17 10:30:00 CSTNotes: (Same as: Benadryl) Inactive 06/22/2017 [facility] Macrobid 100 mg, 1 cap, Route: PO, Drug form: CAP, [id number], Dosing Weight 72.727, kg, Start date: 06/22/17 9:00:00 MANUFACTURE SPECIALIST, Stop date: 06/29/17 9:00:00 CSTNotes: Not recommended for patients with CrCl Inactive 06/22/2017 [facility] Saline Flush 0.9% 10 ml, Route: IVP, Drug Form: INJ, Dosing Weight 72.727, kg, Q12H, Start date: 06/22/17 9:00:00 MANUFACTURE SPECIALIST, Duration: 30 day, Stop date: 07/21/17 21:00:00 CDTNotes: (Same as: BD Posiflush) No Longer Active 06/22/2017 [facility] sennosides, FCI 8.6 mg, 1 tab, Route: PO, Drug Form: TAB, Dosing Weight 72.727, kg, Q12H, Start date: 06/22/17 9:00:00 MANUFACTURE SPECIALIST, Duration: 30 day, Stop date: 07/21/17 21:00:00 CDTNotes: (Same as: Senokot) No Longer Active 06/22/2017 [facility] Famotidine 20 mg, 2 mL, Route: IVP, Drug form: INJ, Q12H, Dosing Weight 72.727, kg, Start date: 06/22/17 9:00:00 MANUFACTURE SPECIALIST, Duration: 30 day, Stop date: 07/21/17 21:00:00 CDT Inactive 06/22/2017 [facility] Docusate Sodium 100 MG Oral Capsule 100 mg, 10 mL, Route: PO, Drug form: LIQ, Q12H, Dosing Weight 72.727, kg, Start date: 06/22/17 9:00:00 MANUFACTURE SPECIALIST, Stop date: 07/21/17 21:00:00 CDTNotes: (Same as: Colace) No Longer Active 06/22/2017 [facility] Levetiracetam 500 MG Oral Tablet [Keppra] 500 mg, 1 tab, Route: PO, Drug form: TAB, Q12H, Dosing Weight 72.727, kg, Start date: 06/22/17 9:00:00 MANUFACTURE SPECIALIST, Duration: 30 day, Stop date: 07/21/17 21:00:00 CDT No Longer Active 06/22/2017 [facility] timolol ophthalmic 0.5% solution 1 drp, Route: BOTH EYES, BID, Drug form: SOLN, Start date: 06/22/17 9:00:00 MANUFACTURE SPECIALIST, Duration: 30 day, Stop date: 07/21/17 17:00:00 CDT No Longer Active 06/22/2017 [facility] Lexapro 10 mg, 1 tab, Route: PO, Drug form: TAB, Daily, Dosing Weight 72.727, kg, Start date: 06/22/17 9:00:00 MANUFACTURE SPECIALIST, Duration: 30 day, Stop date: 07/21/17 9:00:00 CDTNotes: (Same as: Lexapro) No Longer Active 06/22/2017 [facility] Insulin regular 10 unit, 0.1 mL, Route: SUB-Q, Drug form: SOLN, Sliding Scale, Dosing Weight 72.727, kg, PRN Blood Glucose Results, Start date: 06/21/17 21:38:00 MANUFACTURE SPECIALIST, Duration: 30 day, Stop date: 07/21/17 22:37:00 C DTNotes: (Same as: Humulin R) Roll in palms of hands gently; Do not shake vigorously. "single patient use only" (Restricted to patients requiring a dose > 60 units) WASTE: F/P - Black; E - Needle Trash Bin Stable for 28 days at room temperature Expires in days from Date No Longer Active 06/22/2017 [facility] Saline Flush 0.9% 10 ml, Route: IVP, Drug Form: INJ, Dosing Weight 72.727, kg, PRN, PRN Line Flush, Start date: 06/21/17 21:38:00 MANUFACTURE SPECIALIST, Duration: 30 day, Stop date: 07/21/17 22:37:00 CDTNotes: (Same as: BD Posiflush) No Longer Active 06/22/2017 [facility] Labetalol 10 mg, 2 mL, Route: IVP, Drug form: INJ, Q15Min, Dosing Weight 72.727, kg, PRN Hypertension, Start date: 06/21/17 21:38:00 MANUFACTURE SPECIALIST, Duration: 3 doses or times, Stop date: Limited # of times No Longer Active 06/22/2017 [facility] Ondansetron 4 mg, 2 mL, Route: IVP, Drug form: INJ, Q8H, Dosing Weight 72.727, kg, PRN Nausea & Vomiting, Start date: 06/21/17 21:38:00 MANUFACTURE SPECIALIST, Duration: 30 day, Stop date: 07/21/17 21:37:00 CDTNotes: (Same as: Zofran) MEDICATION WASTE Product Size: 4 mg Product Wasted: ___ mg No Longer Active 06/22/2017 [facility] Bisacodyl 10 mg, 1 supp, Route: MO, Drug form: SUPP, Daily, Dosing Weight 72.727, kg, PRN Constipation, Start date: 06/21/17 21:38:00 MANUFACTURE SPECIALIST, Duration: 30 day, Stop date: 07/21/17 21:37:00 CDTNotes: (Same As: Dulcolax, Bisco-Lax) No Longer Active 06/22/2017 [facility] Acetaminophen 325 MG / Hydrocodone Bitartrate 5 MG Oral Tablet [[place] 5/325] 1 tab, Route: PO, Drug Form: TAB, Dosing Weight 72.727, kg, Q8H, PRN Pain Score 7-10, STAT, Start date: 06/21/17 21:36:00 MANUFACTURE SPECIALIST, Duration: 30 day, Stop date: 07/21/17 21:35:00 CDTNotes: (Same as: [place] 325/5) Do not exceed 4gm/day of acetaminophen. No Longer Active 06/22/2017 [facility] Tylenol 650 mg, 2 tab, Route: PO, Drug form: TAB, Q6H, Dosing Weight 72.727, kg, PRN Pain 1-3/Temp > 100.4 F, Priority: STAT, Start date: 06/21/17 21:35:00 MANUFACTURE SPECIALIST, Duration: 30 day, Stop date: 07/21/17 21:34:00 CDT No Longer Active 06/22/2017 [facility] normal saline 0.9% IV 1,000 mL 1,000 mL, Rate: 50 ml/hr, Infuse over: 20 hr, Route: IV, Dosing Weight 72.727 kg, Total Volume: 1,000, Start date: 06/21/17 20:46:00 MANUFACTURE SPECIALIST, Duration: 30 day, Stop date: 07/21/17 20:45:00 CDT, 1.8, m2 No Longer Active 06/22/2017 [facility] Fentanyl 25 microgram, Route: IVP, ONCE, Dosing Weight 45.455, kg, Priority: STAT, Start date: 06/21/17 18:34:00 MANUFACTURE SPECIALIST, Stop date: 06/21/17 18:34:00 MANUFACTURE SPECIALIST Inactive 06/22/2017 [facility] Keppra 1,000 mg, Route: IV, ONCE, Dosing Weight 45.455, kg, Start date: 06/21/17 17:11:00 MANUFACTURE SPECIALIST, Stop date: 06/21/17 17:11:00 CSTNotes: Same as Keppra Mix with 100 mL NS, LR or D5W MEDICATION WASTE Product Size: 500 mg Product Wasted: ___ mg Inactive 06/21/2017 [facility] Lidocaine 1 %, Route: SUB-Q, Drug form: INJ, ONCE, Dosing Weight 45.455, kg, Start date: 06/21/17 16:47:00 MANUFACTURE SPECIALIST, Stop date: 06/21/17 16:47:00 CSTNotes: (Same as: Xylocaine) Inactive 06/21/2017 [facility] NS (Bolus) IV 500 mL, 500 ml/hr, Infuse Over: 1 hr, Route: IV, 500, Drug form: INJ, ONCE, Priority: STAT, Dosing Weight 45.455 kg, Start date: 06/21/17 15:17:00 MANUFACTURE SPECIALIST, Stop date: 06/21/17 15:17:00 MANUFACTURE SPECIALIST Inactive 06/21/2017 [facility] Zofran 4 mg, 2 mL, Route: IVP, Drug form: INJ, ONCE, Dosing Weight 45.455, kg, Priority: STAT, Start date: 06/21/17 15:17:00 MANUFACTURE SPECIALIST, Stop date: 06/21/17 15:17:00 CSTNotes: (Same as: Zofran) MEDICATION WASTE Product Size: 4 mg Product Wasted: ___ mg Inactive 06/21/2017 [facility] Fentanyl 25 microgram, 0.5 mL, Route: IVP, Drug form: INJ, ONCE, Dosing Weight 45.455, kg, Priority: STAT, Start date: 06/21/17 15:17:00 MANUFACTURE SPECIALIST, Stop date: 06/21/17 15:17:00 CSTNotes: (Same as: Sublimaze) Preservative free. Inactive 06/21/2017 [facility] meropenem 500 mg, Route: IVPB, [id number], Dosing Weight 45.455, kg, CrCL=30 -49 ml/min, Extended infusion, infuse over 3 hours, Start date: 06/20/17 21:00:00 MANUFACTURE SPECIALIST, Duration: 5 day, Stop date: 06/25/17 13:00:00 MANUFACTURE SPECIALIST, ABX Indication: Urinary Tract InfectionNotes: Same as Merrem MEDICATION WASTE Product Size: 500 mg Product Wasted: ___ mg Inactive 06/21/2017 [facility] meropenem + sterile water 10 mL 500 mg, Route: IVP, Drug form: PDR/INJ, ONCE, Start date: 06/20/17 13:00:00 MANUFACTURE SPECIALIST, Stop date: 06/20/17 13:00:00 MANUFACTURE SPECIALIST, ABX Indication: Urinary Tract InfectionNotes: Same as Merrem MEDICATION WASTE Product Size: 500 mg Product Wasted: ___ mg Inactive 06/20/2017 [facility] Nitrofurantoin 100 MG Oral Capsule [Macrobid] 100 mg=1 cap, PO, BID, X 10 day, # 20 cap, 0 Refill(s) No Longer Active 06/19/2017 [facility] Potassium Chloride 40 mEq, 2 tab, Route: PO, Drug form: ERTAB, Q4H, Dosing Weight 45.455, kg, Priority: NOW, Start date: 06/17/17 9:10:00 MANUFACTURE SPECIALIST, Duration: 2 doses or times, Stop date: 06/17/17 13:30:00 CSTNotes: (Same as: K-Dur 20) "Do Not Crush" With food and full glass of water Inactive 06/17/2017 [facility] Lexapro 10 mg, 1 tab, Route: PO, Drug form: TAB, Daily, Dosing Weight 45.455, kg, Start date: 06/17/17 9:00:00 MANUFACTURE SPECIALIST, Duration: 30 day, Stop date: 07/16/17 9:00:00 CDTNotes: (Same as: Lexapro) No Longer Active 06/17/2017 [facility] Seroquel 25 mg, 1 tab, Route: PO, Drug form: TAB, Bedtime, Dosing Weight 45.455, kg, Start date: 06/16/17 21:00:00 MANUFACTURE SPECIALIST, Duration: 30 day, Stop date: 07/15/17 21:00:00 CDTNotes: (Same as: SEROquel) No Longer Active 06/17/2017 [facility] Crestor 10 mg, 2 tab, Route: PO, Drug form: TAB, Bedtime, Dosing Weight 45.455, kg, Start date: 06/16/17 21:00:00 MANUFACTURE SPECIALIST, Duration: 30 day, Stop date: 07/15/17 21:00:00 CDTNotes: Same as Crestor No Longer Active 06/17/2017 [facility] Cipro 400 mg, 200 mL, Route: IVPB, Drug form: INJ, [id number], Dosing Weight 45.455, kg, Start date: 06/16/17 19:00:00 MANUFACTURE SPECIALIST, Duration: 3 day, Stop date: 06/18/17 19:00:00 MANUFACTURE SPECIALIST, ABX Indication: Urinary Tract InfectionNotes: Do not refrigerate No Longer Active 06/17/2017 [facility] latanoprost 1 drp, Route: BOTH EYES, QPM, Drug form: SOLN, Start date: 06/16/17 17:00:00 MANUFACTURE SPECIALIST, Duration: 30 day, Stop date: 07/15/17 17:00:00 CDTNotes: Keep refrigerated. (Same as:Xalatan) Opened bottle may be s tored at room temperature for 6 weeks No Longer Active 06/16/2017 [facility] Timolol 2.5 MG/ML Ophthalmic Solution 1 drp, Route: BOTH EYES, BID, Drug form: SOLN, Start date: 06/16/17 17:00:00 MANUFACTURE SPECIALIST, Duration: 30 day, Stop date: 07/16/17 9:00:00 CDTNotes: (Same As: Timoptic, Betimol) No Longer Active 06/16/2017 [facility] Streptococcus pneumoniae serotype 1 capsular antigen diphtheria [id number] protein conjugate vaccine / Streptococcus pneumoniae serotype 14 capsular antigen diphtheria [id number] protein conjugate vaccine / Streptococcus pneumoniae serotype 18C capsular antigen d 0.5 mL, Route: IM, Drug Form: INJ, Daily, Start date: 06/16/17 9:00:00 MANUFACTURE SPECIALIST, Duration: 1 doses or times, Stop date: 06/16/17 9:00:00 CSTNotes: Shake well prior to use (Same as: Prevnar 13) Inactive 06/16/2017 [facility] Cipro 400 mg, 200 mL, Route: IVPB, Drug form: INJ, [id number], Dosing Weight 45.455, kg, Start date: 06/15/17 23:00:00 MANUFACTURE SPECIALIST, Duration: 3 day, Stop date: 06/17/17 23:00:00 MANUFACTURE SPECIALIST, ABX Indication: Urinary Tract InfectionNotes: Do not refrigerate Inactive 06/16/2017 [facility] Ondansetron 4 mg, 2 mL, Route: IVP, Drug form: INJ, Q6H, Dosing Weight 45.455, kg, PRN Nausea & Vomiting, Start date: 06/15/17 22:44:00 MANUFACTURE SPECIALIST, Duration: 30 day, Stop date: 07/15/17 22:43:00 CDTNotes: (Same as: Archana) MEDICATION WASTE Product Size: 4 mg Product Wasted: ___ mg No Longer Active 06/16/2017 [facility] Acetaminophen 325 MG / Hydrocodone Bitartrate 5 MG Oral Tablet 2 tab, Route: PO, Drug Form: TAB, Dosing Weight 45.455, kg, Q4H, PRN Pain Score 7-10, Start date: 06/15/17 22:44:00 MANUFACTURE SPECIALIST, Duration: 30 day, Stop date: 07/15/17 22:43:00 CDTNotes: (Same as: [place] 325/5) Do not exceed 4gm/day of acetaminophen. No Longer Active 06/16/2017 [facility] Escitalopram 10 MG Oral Tablet [Lexapro] 10 mg=1 tab, PO, Daily, # 90 tab, 0 Refill(s) Active 06/16/2017 [facility] quetiapine 25 MG Oral Tablet [Seroquel] 25 mg=1 tab, PO, Bedtime, 0 Refill(s) No Longer Active 06/16/2017 [facility] Timolol 2.5 MG/ML Ophthalmic Solution 1 drp, BOTH EYES, BID, # 5 ml, 0 Refill(s) Active 06/16/2017 [facility] latanoprost 1 drp, BOTH EYES, QPM, 0 Refill(s) Active 06/16/2017 [facility] Rosuvastatin calcium 10 MG Oral Tablet [Crestor] 10 mg=1 tab, PO, Bedtime, # 90 tab, 0 Refill(s) Active 06/16/2017 [facility] Fosamax 75 mg, PO, qWeek, 0 Refill(s) No Longer Active 06/16/2017 [facility] Ciprofloxacin 400 mg, Route: IVPB, ONCE, Dosing Weight 61.364, kg, Priority: STAT, Start date: 06/15/17 16:09:00 MANUFACTURE SPECIALIST, Stop date: 06/15/17 16:09:00 MANUFACTURE SPECIALIST, ABX Indication: Urinary Tract Infection Inactive 06/15/2017 [facility] Sodium Chloride 0.9% (Bolus) IV 500 mL, 500 ml/hr, Infuse Over: 1 hr, Route: IV, 500, Drug form: INJ, ONCE, Priority: STAT, Dosing Weight 61.364 kg, Start date: 06/15/17 14:33:00 MANUFACTURE SPECIALIST, Stop date: 06/15/17 14:33:00 MANUFACTURE SPECIALIST Inactive 06/15/2017 [facility] Aspirin 81 MG Enteric Coated Tablet 81 mg, 1 tab, Route: PO, Drug form: ECTAB, Daily, Dosing Weight 63.636, kg, Priority: Routine, Start date: 07/13/13 9:00:00, Duration: 30 day, Stop date: 08/11/13 9:00:00Do not crush or chew. (Same As: Ecotrin) Inactive 07/13/2013 [facility] Fosamax 10 mg, 1 tab, Route: PO, Drug form: TAB, Q630AM, Start date: 07/13/13 6:30:00, Duration: 30 day, Stop date: 08/11/13 6:30:00Give 30 min before breakfast w/6oz water. Sit upright for 30 min after dose. "Do Not Crush" (Same as: Fosamax) Inactive 07/13/2013 [facility] Crestor 5 mg, 0.5 tab, Route: PO, Drug form: TAB, Bedtime, Dosing Weight 63.636, kg, Start date: 07/12/13 21:00:00, Duration: 30 day, Stop date: 08/10/13 21:00:00(Same As: Crestor) No Longer Active 07/13/2013 [facility] latanoprost 0.05 MG/ML Ophthalmic Solution [Xalatan] 1 drp, Route: OPTH, Drug Form: SOLN, Dosing Weight 63.636, kg, Bedtime, Start date: 07/12/13 21:00:00, Duration: 30 day, Stop date: 08/10/13 21:00:00 Inactive 07/13/2013 [facility] Fosamax 70 mg, Route: PO, Drug form: TAB, Q7D, Dosing Weight 63.636, kg, Start date: 07/12/13 17:00:00, Duration: 30 day, Stop date: 08/09/13 9:00:00 Inactive 07/12/2013 [facility] Ativan 1 mg, 0.5 mL, Route: IV, Drug form: INJ, ONCE, Dosing Weight 63.636, kg, Start date: 07/12/13 14:26:00, Stop date: 07/12/13 14:26:00(Same as: Ativan) Inactive 07/12/2013 [facility] Influenza Virus Vaccine, Inactivated D-Qcuzhnrt-14-2007 (H3N2)-like virus (C-Hzecqhi-677-2007 [facility] [place] X-175C) strain / Influenza Virus Vaccine, Inactivated X-Utihskvm-23-2007, IVR-148 (H1N1) strain / Influenza Virus Vaccine, Inactivated, M-Uzajnac-0-lik 0.5 mL, Route: IM, Drug Form: SUSP, Daily, Start date: 07/11/13 9:00:00, Duration: 1 doses or times, Stop date: 07/11/13 9:00:00(Same as: Fluzone, Fluvirin) Shake well prior to administration Inactive 07/11/2013 [facility] pneumococcal capsular polysaccharide type 1 vaccine / pneumococcal capsular polysaccharide type 10A vaccine / pneumococcal capsular polysaccharide type 11A vaccine / pneumococcal capsular polysaccharide type 12F vaccine / pneumococcal capsular polysacchar 0.5 ml, Route: IM, Drug Form: INJ, Daily, Start date: 07/11/13 9:00:00, Duration: 1 doses or times, Stop date: 07/11/13 9:00:00(Same as: Pneumovax 23) Refrigerate Inactive 07/11/2013 [facility] Rosuvastatin calcium 5 MG Oral Tablet [Crestor] 5 mg=1 tab, PO, Bedtime, # 30 tab, 0 Refill(s) Active 07/11/2013 [facility] Xalatan 0 Refill(s) Active 07/11/2013 [facility] latanoprost 0.05 MG/ML Ophthalmic Solution [Xalatan] 1 drp, OPTH, Bedtime, # 3 ml, 0 Refill(s) Active 07/11/2013 [facility] Alendronic acid 70 MG Oral Tablet [Fosamax] 70 mg=1 tab, PO, Q7D, # 12 tab, 0 Refill(s) Active 07/11/2013 [facility] nitroglycerin 0.4 mg sublingual tablet 0.4 mg, 1 tab, Route: SL, Drug form: TAB, Q5Min, PRN Chest Pain, Start date: 07/11/13 2:28:00, Duration: 30 day, Stop date: 08/10/13 2:27:00(Same as:Nitroquick, Nitrostat) "Do Not Crush" Sublingual tablet No Longer Active 07/11/2013 [facility] atropine 0.5 mg, 5 mL, Route: IVP, Drug form: INJ, PRN, PRN Bradycardia, Start date: 07/11/13 2:28:00, Duration: 30 day, Stop date: 08/10/13 2:27:00 No Longer Active 07/11/2013 [facility] NS + KCL 20mEq/L 1000ml (Premix) 1,000 mL 1,000 mL, Rate: 75 ml/hr, Infuse over: 13.3 hr, Route: IV, Dosing Weight 63.636 kg, Total Volume: 1,000, Start date: 07/11/13 2:18:00, Duration: 30 day, Stop date: 08/10/13 2:17:00PREMIX IV - Do Not Alter No Longer Active 07/11/2013 [facility] Saline Flush 0.9% 5 ml, Route: IVP, Drug Form: INJ, Dosing Weight 63.636, kg, PRN, PRN Line Flush, Start date: 07/11/13 2:18:00, Duration: 30 day, Stop date: 08/10/13 2:17:00(Same as: BD Posiflush) No Longer Active 07/11/2013 [facility] Ondansetron 4 mg, 2 mL, Route: IVP, Drug form: INJ, Q8H, Dosing Weight 63.636, kg, PRN Nausea & Vomiting, Start date: 07/11/13 2:18:00, Duration: 30 day, Stop date: 08/10/13 2:17:00(Same as: Zofran) No Longer Active 07/11/2013 [facility] Morphine 2 mg, 1 mL, Route: IVP, Drug form: INJ, Q3H, Dosing Weight 63.636, kg, PRN Pain Score 4-6, Start date: 07/11/13 2:18:00, Duration: 30 day, Stop date: 08/10/13 2:17:00(Same as:MORPhine Sulfate) No Longer Active 07/11/2013 [facility] K-Dur 20 40 mEq, Route: PO, ONCE, Dosing Weight 63.636, kg, Start date: 07/11/13 1:13:00, Stop date: 07/11/13 1:13:00 Inactive 07/11/2013 [facility] Magnesium Oxide 400 mg, 1 tab, Route: PO, Drug form: TAB, ONCE, Dosing Weight 63.636, kg, Start date: 07/11/13 0:17:00, Stop date: 07/11/13 0:17:00(Same as: Mag-Ox 400) Magnesium oxide [id number] elemental magnesium Dose=____mg magnesium oxide (___mg elemental magnesium) Inactive 07/11/2013 [facility] Allergies, Adverse Reactions, Alerts Substance Category Reaction Severity Reaction type Status Date Reported Comments Source penicillins Assertion Drug allergy Active [facility] Macrobid<sup>1</sup> Assertion Drug allergy Active Rash on body and face. [facility] Immunizations Immunization Date Given Site Status Last Updated Comments Source diphtheria/pertussis, acel/tetanus adult 06/21/2017 Left deltoid completed [facility] pneumococcal 13-valent vaccine 06/16/2017 Left deltoid completed [facility] Hx influenza vaccine-unspecified 05/26/2017 completed [facility] influenza virus vaccine, inactivated<sup>1</sup> 07/11/2013 Not Given ANDREW [facility]ales [facility] pneumococcal 23-valent vaccine<sup>2</sup> 07/11/2013 Not Given [facility] influenza virus vaccine, inactivated<sup>1</sup> 07/11/2013 [facility]ent [facility]<sup>2</sup> 07/11/2013 Not Given ANDREW Morales,[facility] Hx pneumococcal vaccine 05/26/2013 completed Suarez Jayla,[facility] Results Order Name Results Value Reference Range Date Interpretation Comments Source ELECTROLYTES Sodium Lvl 139 meq/L 135 - 145 06/27/2017 [facility] ELECTROLYTES AGAP 11.5 meq/L 10.0 - 20.0 06/26/2017 [facility] ELECTROLYTES eGFR 105 mL/min/1.73m2 06/26/2017 Result Comment: The eGFR is calculated using the CKD-EPI formula. In most young, healthy individuals the eGFR will be >90 mL/min/1.73m2. The eGFR declines with age. An eGFR of 60-89 may be normal in some populations, particularly the elderly, for whom the CKD-EPI formula has not been extensively validated. Use of the eGFR is not recommended in the following populations: Individuals with unstable creatinine concentrations, including patients and those with serious co-morbid conditions. Patients with extremes in muscle mass or diet. The data above are obtained from the National Kidney Disease Education Program (NKDEP) which additionally recommends that when the eGFR is used in patients with extremes of body mass index for purposes of drug dosing, the eGFR should be multiplied by the estimated BMI. [facility] ELECTROLYTES Glucose Lvl 97 mg/dL 70 - 99 06/26/2017 [facility] ELECTROLYTES Creatinine Lvl 0.28 mg/dL 0.50 - 1.40 06/26/2017 [facility] ELECTROLYTES BUN 6 mg/dL 7 - 22 06/26/2017 [facility] ELECTROLYTES Sodium Lvl 137 meq/L 135 - 145 06/26/2017 [facility] ELECTROLYTES Chloride Lvl 101 meq/L 95 - 109 06/26/2017 [facility] ELECTROLYTES Potassium Lvl 3.5 meq/L 3.5 - 5.1 06/26/2017 [facility] ELECTROLYTES CO2 28 meq/L 24 - 32 06/26/2017 [facility] ELECTROLYTES Calcium Lvl 8.4 mg/dL 8.5 - 10.5 06/26/2017 [facility] HEMATOLOGY Eosinophils 3.1 % 0.0 - 4.0 06/26/2017 [facility] HEMATOLOGY Basophils 1.0 % 0.0 - 1.0 06/26/2017 [facility] HEMATOLOGY Lymphocytes 30.0 % 20.0 - 40.0 06/26/2017 [facility] HEMATOLOGY Monocytes 7.3 % 2.0 - 12.0 06/26/2017 [facility] HEMATOLOGY Segs 58.6 % 45.0 - 75.0 06/26/2017 [facility] HEMATOLOGY Segs-Bands # 3.1 K/CMM 1.5 - 8.1 06/26/2017 [facility] HEMATOLOGY Lymphocytes # 1.6 K/CMM 1.0 - 5.5 06/26/2017 [facility] HEMATOLOGY Monocytes # 0.4 K/CMM 0.0 - 0.8 06/26/2017 [facility] HEMATOLOGY Eosinophils # 0.2 K/CMM 0.0 - 0.5 06/26/2017 [facility] HEMATOLOGY Basophils # 0.1 K/CMM 0.0 - 0.2 06/26/2017 [facility] HEMATOLOGY Platelet 236 K/CMM 133 - 450 06/26/2017 [facility] HEMATOLOGY MPV 8.6 fL 7.4 - 10.4 06/26/2017 [facility] HEMATOLOGY Hct 31.7 % 36.0 - 48.0 06/26/2017 [facility] HEMATOLOGY Hgb 11.0 g/dL 12.0 - 16.0 06/26/2017 [facility] HEMATOLOGY MCH 33.8 pg 27.0 - 31.0 06/26/2017 [facility] HEMATOLOGY MCHC 34.6 g/dL 32.0 - 36.0 06/26/2017 [facility] HEMATOLOGY RDW 13.2 % 11.5 - 14.5 06/26/2017 [facility] HEMATOLOGY RBC 3.25 M/CMM 4.20 - 5.40 06/26/2017 [facility] HEMATOLOGY MCV 97.7 fL 80.0 - 98.0 06/26/2017 [facility] HEMATOLOGY WBC 5.3 K/CMM 3.7 - 10.4 06/26/2017 [facility] ELECTROLYTES Sodium Lvl 138 meq/L 135 - 145 06/25/2017 [facility] CHEM PANEL Glucose Lvl 113 mg/dL 70 - 99 06/25/2017 [facility] CHEM PANEL BUN 5 mg/dL 7 - 22 06/25/2017 [facility] CHEM PANEL Creatinine Lvl 0.35 mg/dL 0.50 - 1.40 06/25/2017 [facility] CHEM PANEL AGAP 12.6 meq/L 10.0 - 20.0 06/25/2017 [facility] CHEM PANEL Calcium Lvl 8.5 mg/dL 8.5 - 10.5 06/25/2017 [facility] CHEM PANEL CO2 28 meq/L 24 - 32 06/25/2017 [facility] CHEM PANEL Potassium Lvl 3.6 meq/L 3.5 - 5.1 06/25/2017 [facility] CHEM PANEL Chloride Lvl 107 meq/L 95 - 109 06/25/2017 [facility] CHEM PANEL eGFR 97 mL/min/1.73m2 06/25/2017 Result Comment: The eGFR is calculated using the CKD-EPI formula. In most young, healthy individuals the eGFR will be >90 mL/min/1.73m2. The eGFR declines with age. An eGFR of 60-89 may be normal in some populations, particularly the elderly, for whom the CKD-EPI formula has not been extensively validated. Use of the eGFR is not recommended in the following populations: Individuals with unstable creatinine concentrations, including patients and those with serious co-morbid conditions. Patients with extremes in muscle mass or diet. The data above are obtained from the National Kidney Disease Education Program (NKDEP) which additionally recommends that when the eGFR is used in patients with extremes of body mass index for purposes of drug dosing, the eGFR should be multiplied by the estimated BMI. [facility] HEMATOLOGY Eosinophils # 0.2 K/CMM 0.0 - 0.5 06/25/2017 [facility] HEMATOLOGY Monocytes # 0.4 K/CMM 0.0 - 0.8 06/25/2017 [facility] HEMATOLOGY Lymphocytes # 1.1 K/CMM 1.0 - 5.5 06/25/2017 [facility] HEMATOLOGY Segs-Bands # 6.7 K/CMM 1.5 - 8.1 06/25/2017 [facility] HEMATOLOGY Basophils 0.5 % 0.0 - 1.0 06/25/2017 [facility] HEMATOLOGY Eosinophils 2.1 % 0.0 - 4.0 06/25/2017 [facility] HEMATOLOGY Segs 79.7 % 45.0 - 75.0 06/25/2017 [facility] HEMATOLOGY Lymphocytes 13.2 % 20.0 - 40.0 06/25/2017 [facility] HEMATOLOGY Monocytes 4.5 % 2.0 - 12.0 06/25/2017 [facility] HEMATOLOGY MPV 8.9 fL 7.4 - 10.4 06/25/2017 [facility] HEMATOLOGY MCV 97.6 fL 80.0 - 98.0 06/25/2017 [facility] HEMATOLOGY RDW 12.8 % 11.5 - 14.5 06/25/2017 [facility] HEMATOLOGY MCH 33.7 pg 27.0 - 31.0 06/25/2017 [facility] HEMATOLOGY MCHC 34.5 g/dL 32.0 - 36.0 06/25/2017 [facility] HEMATOLOGY Platelet 217 K/CMM 133 - 450 06/25/2017 [facility] HEMATOLOGY RBC 3.20 M/CMM 4.20 - 5.40 06/25/2017 [facility] HEMATOLOGY Hgb 10.8 g/dL 12.0 - 16.0 06/25/2017 [facility] HEMATOLOGY Hct 31.2 % 36.0 - 48.0 06/25/2017 [facility] HEMATOLOGY WBC 8.4 K/CMM 3.7 - 10.4 06/25/2017 [facility] CHEM PANEL eGFR 101 mL/min/1.73m2 06/24/2017 Result Comment: The eGFR is calculated using the CKD-EPI formula. In most young, healthy individuals the eGFR will be >90 mL/min/1.73m2. The eGFR declines with age. An eGFR of 60-89 may be normal in some populations, particularly the elderly, for whom the CKD-EPI formula has not been extensively validated. Use of the eGFR is not recommended in the following populations: Individuals with unstable creatinine concentrations, including patients and those with serious co-morbid conditions. Patients with extremes in muscle mass or diet. The data above are obtained from the National Kidney Disease Education Program (NKDEP) which additionally recommends that when the eGFR is used in patients with extremes of body mass index for purposes of drug dosing, the eGFR should be multiplied by the estimated BMI. [facility] CHEM PANEL Glucose Lvl 87 mg/dL 70 - 99 06/24/2017 [facility] CHEM PANEL BUN 5 mg/dL 7 - 22 06/24/2017 [facility] CHEM PANEL Calcium Lvl 7.9 mg/dL 8.5 - 10.5 06/24/2017 [facility] CHEM PANEL CO2 23 meq/L 24 - 32 06/24/2017 [facility] CHEM PANEL AGAP 14.1 meq/L 10.0 - 20.0 06/24/2017 [facility] CHEM PANEL Chloride Lvl 105 meq/L 95 - 109 06/24/2017 [facility] CHEM PANEL Potassium Lvl 4.1 meq/L 3.5 - 5.1 06/24/2017 [facility] CHEM PANEL Creatinine Lvl 0.31 mg/dL 0.50 - 1.40 06/24/2017 [facility] CHEM PANEL Procalcitonin Lvl 1.65 ng/mL 0.00 - 0.10 06/24/2017 [facility] HEMATOLOGY MPV 9.3 fL 7.4 - 10.4 06/24/2017 [facility] HEMATOLOGY RDW 12.9 % 11.5 - 14.5 06/24/2017 [facility] HEMATOLOGY Platelet 192 K/CMM 133 - 450 06/24/2017 [facility] HEMATOLOGY Hct 29.5 % 36.0 - 48.0 06/24/2017 [facility] HEMATOLOGY MCV 97.8 fL 80.0 - 98.0 06/24/2017 [facility] HEMATOLOGY MCH 34.5 pg 27.0 - 31.0 06/24/2017 [facility] HEMATOLOGY MCHC 35.3 g/dL 32.0 - 36.0 06/24/2017 [facility] HEMATOLOGY Hgb 10.4 g/dL 12.0 - 16.0 06/24/2017 [facility] HEMATOLOGY WBC 9.1 K/CMM 3.7 - 10.4 06/24/2017 [facility] HEMATOLOGY RBC 3.02 M/CMM 4.20 - 5.40 06/24/2017 [facility] HEMATOLOGY Segs 84.0 % 45.0 - 75.0 06/24/2017 [facility] HEMATOLOGY Monocytes 3.3 % 2.0 - 12.0 06/24/2017 [facility] HEMATOLOGY Lymphocytes 9.2 % 20.0 - 40.0 06/24/2017 [facility] HEMATOLOGY Basophils # 0.1 K/CMM 0.0 - 0.2 06/24/2017 [facility] HEMATOLOGY Eosinophils # 0.2 K/CMM 0.0 - 0.5 06/24/2017 [facility] HEMATOLOGY Eosinophils 2.7 % 0.0 - 4.0 06/24/2017 [facility] HEMATOLOGY Segs-Bands # 7.7 K/CMM 1.5 - 8.1 06/24/2017 [facility] HEMATOLOGY Basophils 0.8 % 0.0 - 1.0 06/24/2017 [facility] HEMATOLOGY Monocytes # 0.3 K/CMM 0.0 - 0.8 06/24/2017 [facility] HEMATOLOGY Lymphocytes # 0.8 K/CMM 1.0 - 5.5 06/24/2017 [facility] URINE AND STOOL UA Urobilinogen <=1.0 mg/dL 0.1 - 1.0 06/23/2017 [facility] URINE AND STOOL UA Leuk Est Moderate *ABN* (06/23/17 4:58 AM) Negative 06/23/2017 [facility] URINE AND STOOL UA Nitrite Negative (06/23/17 4:58 AM) Negative 06/23/2017 [facility] URINE AND STOOL UA Sq Epi Moderate /LPF Few /LPF 06/23/2017 [facility] URINE AND STOOL UA Bili Negative *NA* (06/23/17 4:58 AM) Negative 06/23/2017 [facility] URINE AND STOOL UA Blood Trace *ABN* (06/23/17 4:58 AM) Negative 06/23/2017 [facility] URINE AND STOOL UA Mucus Few /LPF None Seen /LPF 06/23/2017 [facility] URINE AND STOOL UA [place] Yeast Occasional /HPF None Seen /HPF 06/23/2017 [facility] URINE AND STOOL UA RBC 2 /HPF 0 - 2 06/23/2017 [facility] URINE AND STOOL UA WBC 16 /HPF 0 - 5 06/23/2017 [facility] URINE AND STOOL UA Glucose 150 mg/dL Negative mg/dL 06/23/2017 [facility] URINE AND STOOL UA Ketones 40 mg/dL Negative mg/dL 06/23/2017 [facility] URINE AND STOOL UA Spec Grav 1.020 <=1.030 06/23/2017 [facility] URINE AND STOOL UA Protein 30 mg/dL Negative mg/dL 06/23/2017 [facility] URINE AND STOOL UA pH 6.0 5.0 - 8.0 06/23/2017 [facility] URINE AND STOOL UA Color Yellow *NA* (06/23/17 4:58 AM) Yellow 06/23/2017 [facility] URINE AND STOOL UA Turbidity Clear (06/23/17 4:58 AM) Clear 06/23/2017 [facility] CHEM PANEL Procalcitonin Lvl 2.13 ng/mL 0.00 - 0.10 06/23/2017 Result Comment: Critical Result(s) called to bob Fernandez at 06/23/2017 06:19 by HAMILTON. Read back OK. [facility] Chest 1view DX Chest 1view DX EXAM: XR CHEST 1 VIEW DATE: 06/23/2017 7:59 AM MANUFACTURE SPECIALIST INDICATION: - Leukocytosis COMPARISON: Portable AP chest x-ray 06/13/2017. CT chest 06/21/2017 was also reviewed. TECHNIQUE: AP chest FINDINGS: Increased reticulations are present in the upper lobes and also in the lung bases. This may represent interstitial lung disease and can be better seen on the previous CT chest. No confluent airspace opacities are present however. No pleural effusion or pneumothorax. The cardiomediastinal silhouette is normal in size. Atherosclerotic disease is present in the aortic arch. Degenerative changes are present in the shoulders and spine. IMPRESSION: No acute cardiopulmonary process or change from prior chest x-ray. 06/23/2017 - - Read by: Jean Marie Jerry MD Dictated Date/time: 06/23/17 09:41 Electronically Signed by: Jean Marie Jerry MD 06/23/17 09:45 FINAL REPORT [facility] HEMATOLOGY Basophils # 0.1 K/CMM 0.0 - 0.2 06/23/2017 [facility] CARDIAC ENZYMES Troponin-I null 0.00 - 0.40 06/22/2017 [facility] CARDIAC ENZYMES Total CK 124 unit/L 12 - 191 06/22/2017 [facility] CARDIAC ENZYMES Troponin-T null 0.000 - 0.100 06/22/2017 [facility] CARDIAC ENZYMES Troponin-I null 0.00 - 0.40 06/22/2017 [facility] CARDIAC ENZYMES CK MB Index 1.3 0.0 - 2.5 06/22/2017 [facility] CARDIAC ENZYMES CK MB 1.6 ng/mL 0.5 - 3.6 06/22/2017 [facility] BACTERIAL - SEROLOGY MRSA by PCR Negative (06/22/17 1:10 AM) 06/22/2017 [facility] HEMATOLOGY ASA Effect Plt 590 ARU 06/22/2017 [facility] CARDIAC ENZYMES Total CK 122 unit/L 12 - 191 06/22/2017 [facility] CARDIAC ENZYMES Troponin-T null 0.000 - 0.100 06/22/2017 [facility] CARDIAC ENZYMES Troponin-I null 0.00 - 0.40 06/22/2017 [facility] CARDIAC ENZYMES CK MB Index 1.5 0.0 - 2.5 06/22/2017 [facility] CARDIAC ENZYMES CK MB 1.8 ng/mL 0.5 - 3.6 06/22/2017 [facility] URINE AND STOOL UA Color Yellow *NA* (06/21/17 11:13 PM) Yellow 06/22/2017 [facility] URINE AND STOOL UA Turbidity Slight Cloudy (06/21/17 11:13 PM) Clear 06/22/2017 [facility] URINE AND STOOL UA Ketones 15 mg/dL Negative mg/dL 06/22/2017 [facility] URINE AND STOOL UA Glucose Negative (06/21/17 11:13 PM) Negative 06/22/2017 [facility] URINE AND STOOL UA Protein Negative (06/21/17 11:13 PM) Negative 06/22/2017 [facility] URINE AND STOOL UA Spec Grav 1.010 <=1.030 06/22/2017 [facility] URINE AND STOOL UA Leuk Est Small *ABN* (06/21/17 11:13 PM) Negative 06/22/2017 [facility] URINE AND STOOL UA Nitrite Negative (06/21/17 11:13 PM) Negative 06/22/2017 [facility] URINE AND STOOL UA Urobilinogen 0.2 EU/dL 0.1 - 1.0 06/22/2017 [facility] URINE AND STOOL UA Blood Trace *ABN* (06/21/17 11:13 PM) Negative 06/22/2017 [facility] URINE AND STOOL UA Bili Negative *NA* (06/21/17 11:13 PM) Negative 06/22/2017 [facility] URINE AND STOOL UA pH 7.0 5.0 - 8.0 06/22/2017 [facility] URINE AND STOOL UA Sq Epi Few /LPF Few /LPF 06/22/2017 [facility] URINE AND STOOL UA RBC 0-2 /HPF 0 - 2 06/22/2017 [facility] URINE AND STOOL UA Bacteria Moderate /HPF None Seen /HPF 06/22/2017 [facility] URINE AND STOOL UA WBC 11-20 /HPF None Seen /HPF 06/22/2017 [facility] HEMATOLOGY Estimated % Lysis Rapid 1.6 % 0.0 - 7.5 06/22/2017 [facility] HEMATOLOGY Max Amplitude Rapid 65 mm 52 - 71 06/22/2017 [facility] HEMATOLOGY G-value Rapid 9.3 K d/sc 5.0 - 11.6 06/22/2017 [facility] HEMATOLOGY [place] Rapid 0.6 min 06/22/2017 [facility] HEMATOLOGY R-time Rapid 0.8 min 0.4 - 0.7 06/22/2017 [facility] HEMATOLOGY K-time Rapid 1.3 min 0.6 - 2.3 06/22/2017 [facility] HEMATOLOGY Angle Rapid 74 degrees 64 - 80 06/22/2017 [facility] HEMATOLOGY ACT (TEG) Rapid 121 s 86 - 118 06/22/2017 [facility] HEMATOLOGY PTT 33.0 s 22.9 - 35.8 06/21/2017 [facility] HEMATOLOGY INR 0.98 0.85 - 1.17 06/21/2017 [facility] HEMATOLOGY PT 13.0 s 12.0 - 14.7 06/21/2017 [facility] CARDIAC ENZYMES BNP 41 pg/mL <=100 pg/mL 06/21/2017 [facility] CARDIAC ENZYMES Troponin-I null 0.00 - 0.40 06/21/2017 [facility] CHEM PANEL Lactic Acid Lvl 0.5 mMol/L 0.5 - 2.2 06/21/2017 [facility] CHEM PANEL B/C Ratio 29 6 - 25 06/21/2017 [facility] CHEM PANEL Globulin 4.1 g/dL 2.7 - 4.2 06/21/2017 [facility] CHEM PANEL A/G Ratio 0.8 0.7 - 1.6 06/21/2017 [facility] CHEM PANEL AGAP 12.5 meq/L 10.0 - 20.0 06/21/2017 [facility] CHEM PANEL eGFR 89 mL/min/1.73m2 06/21/2017 Result Comment: The eGFR is calculated using the CKD-EPI formula. In most young, healthy individuals the eGFR will be >90 mL/min/1.73m2. The eGFR declines with age. An eGFR of 60-89 may be normal in some populations, particularly the elderly, for whom the CKD-EPI formula has not been extensively validated. Use of the eGFR is not recommended in the following populations: Individuals with unstable creatinine concentrations, including patients and those with serious co-morbid conditions. Patients with extremes in muscle mass or diet. The data above are obtained from the National Kidney Disease Education Program (NKDEP) which additionally recommends that when the eGFR is used in patients with extremes of body mass index for purposes of drug dosing, the eGFR should be multiplied by the estimated BMI. [facility] CHEM PANEL ALT 13 unit/L 0 - 65 06/21/2017 [facility] CHEM PANEL Bili Total 1.0 mg/dL 0.2 - 1.3 06/21/2017 [facility] CHEM PANEL Alk Phos 70 unit/L 39 - 136 06/21/2017 [facility] CHEM PANEL AST 26 unit/L 0 - 37 06/21/2017 [facility] CHEM PANEL Glucose Lvl 100 mg/dL 70 - 99 06/21/2017 [facility] CHEM PANEL Potassium Lvl 4.5 meq/L 3.5 - 5.1 06/21/2017 [facility] CHEM PANEL Sodium Lvl 131 meq/L 135 - 145 06/21/2017 [facility] CHEM PANEL BUN 13 mg/dL 7 - 22 06/21/2017 [facility] CHEM PANEL Creatinine Lvl 0.45 mg/dL 0.50 - 1.40 06/21/2017 [facility] CHEM PANEL Chloride Lvl 96 meq/L 95 - 109 06/21/2017 [facility] CHEM PANEL Total Protein 7.5 g/dL 6.4 - 8.4 06/21/2017 [facility] CHEM PANEL Albumin Lvl 3.4 g/dL 3.5 - 5.0 06/21/2017 [facility] CHEM PANEL CO2 27 meq/L 24 - 32 06/21/2017 [facility] CHEM PANEL Calcium Lvl 8.4 mg/dL 8.5 - 10.5 06/21/2017 [facility] HEMATOLOGY MPV 8.4 fL 7.4 - 10.4 06/21/2017 [facility] HEMATOLOGY Platelet 251 K/CMM 133 - 450 06/21/2017 [facility] RDW 12.8 % 11.5 - 14.5 06/21/2017 [facility] MCHC 35.1 g/dL 32.0 - 36.0 06/21/2017 [facility] MCH 33.7 pg 27.0 - 31.0 06/21/2017 [facility] MCV 96.1 fL 80.0 - 98.0 06/21/2017 [facility] Hct 34.4 % 36.0 - 48.0 06/21/2017 [facility] Hgb 12.1 g/dL 12.0 - 16.0 06/21/2017 [facility] RBC 3.58 M/CMM 4.20 - 5.40 06/21/2017 [facility] WBC 7.6 K/CMM 3.7 - 10.4 06/21/2017 [facility] Monocytes # 0.5 K/CMM 0.0 - 0.8 06/21/2017 [facility] Basophils # 0.1 K/CMM 0.0 - 0.2 06/21/2017 [facility] Basophils 0.9 % 0.0 - 1.0 06/21/2017 [facility] Segs-Bands # 5.7 K/CMM 1.5 - 8.1 06/21/2017 [facility] Lymphocytes 16.7 % 20.0 - 40.0 06/21/2017 [facility] Lymphocytes # 1.3 K/CMM 1.0 - 5.5 06/21/2017 [facility] Eosinophils 0.3 % 0.0 - 4.0 06/21/2017 [facility] Monocytes 7.1 % 2.0 - 12.0 06/21/2017 [facility] Segs 75.0 % 45.0 - 75.0 06/21/2017 [facility] Brain wo contrast CT Brain wo contrast CT EXAM: CT BRAIN WITHOUT CONTRAST DATE: 06/21/2017 at 2115 hours INDICATION: Traumatic subarachnoid hemorrhage COMPARISON: Brain CT performed at [facility] at 1648 hours TECHNIQUE: Routine axial images of the brain were obtained. IV contrast: None DISCUSSION: Previously described trace subarachnoid hemorrhage along the right frontal region is not reproduced on this study. There is no acute intracerebral hemorrhage, edema, mass lesion, or extra-axial collection. Chronic microvascular ischemic changes in the white matter and diffuse cortical volume loss appear to be unremarkable for the patient's stated chronologic age. The calvarium and skull base are intact. Atherosclerotic calcifications in the bilateral carotid siphons and vertebrobasilar arteries are shown. The mastoid air cells and visible paranasal sinuses are unremarkable. IMPRESSION: Previously described trace subarachnoid hemorrhage is not reproduced on this study. No acute brain parenchymal abnormality Overall, no adverse interval change UT SECTION: Neuro 06/21/2017 - - This report was dictated by a Wind Up Worker/Fellow. I have personally reviewed the images as well as the Resident's interpretation and agree with the findings. Read by: Raudel Melchor MD Resident: Raudel Melchor MD Dictated Date/time: 06/21/17 21:26 Electronically Signed by: Sylvester Galloway MD 06/22/17 03:33 FINAL REPORT [facility] Shoulder series DX Shoulder series DX EXAM: XR LEFT SHOULDER 3 VIEWS DATE: 06/21/2017 at 2049 hours INDICATION: pain s/p fall COMPARISON: Bilateral humerus radiograph June 21, 2017, chest radiograph TECHNIQUE: AP views in internal and external rotation, and an axillary view of the shoulder FINDINGS: No acute fracture or malalignment is identified. Glenohumeral and acromioclavicular alignment is maintained. There is diffuse osteopenia. No soft tissue abnormality is identified. The lungs are partially visualized. Aortic calcifications are present. Mildly diffuse prominent interstitial markings are present, similar pattern to prior studies. IMPRESSION: * No acute fracture or malalignment. * Osteopenia. UT SECTION: ER 06/21/2017 - - This report was dictated by a Wind Up Worker/Fellow. I have personally reviewed the images as well as the Resident's interpretation and agree with the findings. Read by: Tatianna Campuzano MD Resident: Tatianna Campuzano MD Dictated Date/time: 06/21/17 20:58 Electronically Signed by: Dakota Dumont MD 06/21/17 21:14 FINAL REPORT [facility] Spine cervical wo contrast CT Spine cervical wo contrast CT STUDY: Spine cervical wo contrast CT 06/21/2017 3:13 PM [employer]UFACTURE SPECIALIST Ordering Physician: Jerry Morejon MD Patient Name: FLORENCIO BEDOLLA MR: [id number] : 1930; Age: 87 years y/o Female Clinical Indication: Cervical injury after a fall. Comparison: None Technique: Multiple contiguous noncontrast CT images were obtained through the cervical spine. Coronal and sagittal reconstructions were prepared. DLP: 308.19 mGy-cm FINDINGS: ALIGNMENT AND GENERAL ASSESSMENT: 1. Alignment is normal without subluxation. 2. Mild to moderate cervical spondylosis and facet arthrosis greatest in the mid to lower cervical spine. Minimal grade 1 retrolisthesis of C5 on C6 and grade 1 anterolisthesis of C7 on T1 is most likely degenerative in nature. 3. No acute fracture, dislocation, or suspicious focal osseous lesion. DISK SPACES: 1. Moderate spinal canal narrowing and moderate bilateral neural foraminal narrowing at C3-C4. 2. Mild to moderate spinal canal narrowing, mild to moderate left neural foraminal narrowing, and mild right neural foraminal narrowing at C4-C5. 3. Moderate spinal canal narrowing, moderate to severe left neural foraminal narrowing, and moderate right neural foraminal narrowing at C5-C6. 4. Moderate neural foraminal narrowing and mild right neural foraminal narrowing at C6-C7. PREVERTEBRAL SOFT TISSUES: The prevertebral soft tissue thickness is normal. LUNG APICES: Mild pleural/parenchymal scarring in both lung apices. IMPRESSION: 1. Mild/moderate cervical spondylosis and facet arthrosis without acute fracture or dislocation. SL: [id number] 06/21/2017 - - Read by: Arsh Lind MD Dictated Date/time: 06/21/17 17:04 Electronically Signed by: Arsh Lind MD 06/21/17 17:09 FINAL REPORT [facility] Chest/Abdomen/Pelvis w IV contrast CT Chest/Abdomen/Pelvis w IV contrast CT CT CHEST ABDOMEN AND PELVIS WITH CONTRAST Clinical Indication: 87-year-old patient - fall, chest pain/shoulder pain/hip pain. Comparison: None. TECHNIQUE: Helical imaging was performed apices through the symphysis with multiplanar reconstructions. IV CONTRAST: 100 cc Omnipaque 300 GI CONTRAST: None DLP: 760 mGy-cm FINDINGS: CHEST: LUNGS AND PLEURA: No lung mass or consolidation. Changes of mild chronic peripheral interstitial lung disease are demonstrated on both sides with primary involvement of the upper lobes. No pleural abnormality. MEDIASTINUM, ALEJANDRA and AXILLAE: Heavily calcified plaque within the arch of the aorta. Mild calcifications within the proximal great vessels. No aneurysm. No mass or adenopathy. No pericardial disease. Focal calcification within the left anterior descending. ABDOMEN: ORGANS: Area of diminished attenuation within the posterior superior aspect of the right hepatic lobe measures approximately 2.2 cm with peripheral nodular enhancement suggestive of a cavernous hemangioma. A 2nd circumscribed area of diminished attenuation is present along the posterior superior contour of the left lateral hepatic segment measuring 1.5 cm with a fluid attenuation coefficient of 15 Hounsfield units. Noncirrhotic liver morphology. Normal appearance of the pancreas, spleen, adrenal glands and kidneys. BOWEL, MESENTERY: No evidence of acute bowel pathology. Evidence of diverticulosis noted with primary involvement of the sigmoid. No mesenteric inflammation, adenopathy or mass. APPENDIX: Not visualized. PERITONEUM: No significant free intraperitoneal fluid or extraluminal gas. RETROPERITONEUM: No significant inflammation, mass or adenopathy. Heavily calcified aortoiliac atherosclerotic plaque is noted. No aneurysm. ABDOMINAL WALL: No significant abnormality. PELVIS: Pessary device noted. No pelvic mass, adenopathy or significant free fluid. No inguinal abnormality. MUSCULOSKELETAL: No acute skeletal abnormality or focal bone lesion. IMPRESSION: 1. No acute finding. 2. Atherosclerosis, coronary artery disease. 3. Chronic interstitial lung disease. 4. Hepatic cavernous hemangioma, hepatic cyst. 5. Cholecystectomy. 6. Pessary device. 7. Mild sigmoid diverticulosis. [id number] 06/21/2017 - - Read by: Bernardo Nichole MD Dictated Date/time: 06/21/17 17:13 Electronically Signed by: Bernardo Nichole MD 06/21/17 17:23 FINAL REPORT [facility] Brain wo contrast CT Brain wo contrast CT Study: Brain wo contrast CT 06/21/2017 3:13 PM [employer]UFACTURE SPECIALIST Ordering Physician: Jerry Morejon MD Clinical Indication: 87-year-old status post slip and fall. Laceration left eyebrow. Comparison: June 15, 2017 TECHNIQUE: CT images are obtained from the foramen magnum to the vertex on a multidetector CT. Sagittal and coronal reformats are acquired. CT radiation dose DLP: 901 mGy-cm. FINDINGS: Mild soft tissue swelling is present along the superolateral margin of left orbit. No skull fracture identified. Trace subarachnoid hemorrhage is present in the anterior parafalcine right frontal region (coronal series 401 image 22, axial series 2 images 44 and 45 and sagittal series 400 images 20 and 21). Ventricles, sulci and basal cisterns are within normal limits for age. The lake- white junction is intact. Moderate patchy decreased density is present throughout the white matter of the cerebral hemispheres, likely reflecting moderate chronic small vessel ischemic disease. 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 Heavy bilateral cavernous ICA and intradural vertebral artery calcifications are seen. There is no evidence for intracranial mass, mass effect or extra-axial fluid collection. There is no evidence for intracranial hemorrhage. Mild mucosal thickening is present along ethmoid septations bilaterally. Mastoid air cells are clear. The patient has undergone previous bilateral cataract surgery. IMPRESSION: Mild soft tissue swelling is present in the left periorbital region. No skull fracture identified. There is, however, trace subarachnoid hemorrhage in the anterior parafalcine right frontal region. Findings have been communicated by telephone to Dr. Jerry Morejon, in the emergency department, at 5:10 PM on 06/21/2017. Moderate chronic small vessel ischemic disease is present in the white matter of the cerebral hemispheres. There is a small old lacunar infarct in the right thalamus. These changes are stable as compared to the previous study. SL: [id number] 06/21/2017 - - Read by: Jacinta Garner MD Dictated Date/time: 06/21/17 17:03 Electronically Signed by: Jacinta Garner MD 06/21/17 17:14 FINAL REPORT [facility] Ankle 3 views Bilateral DX Ankle 3 views Bilateral DX Study: Ankle 3 views Bilateral DX 06/21/2017 3:15 PM [employer]UFACTURE SPECIALIST Clinical Indication: - fall; Comparison: None. FINDINGS: 3 views right ankle. Bones are demineralized. No acute bony fracture, subluxation or dislocation. Talar dome and ankle mortise are intact. 3 views left ankle. Bones are demineralized. No acute bony fracture, subluxation or dislocation. Talar dome and ankle mortise are intact IMPRESSION: 1. No acute bony findings of the right ankle 2. No acute bony findings of the left ankle. SL: ANA 06/21/2017 - - Read by: Barak Butler MD Dictated Date/time: 06/21/17 16:36 Electronically Signed by: Barak Butler MD 06/21/17 16:38 FINAL REPORT [facility] Humerus 2+ Views Bilateral DX Humerus 2+ Views Bilateral DX Study: Humerus 2+ Views Bilateral DX 06/21/2017 3:33 PM [employer]UFACTURE SPECIALIST Clinical Indication: - fall, pain; Comparison: None. FINDINGS: 2 views right humerus shows no acute bony fracture. Anatomic alignment is maintained. 2 views left humerus shows no acute bony fracture. Anatomic alignment is maintained IMPRESSION: 1. Negative right humerus 2. Negative left humerus SL: ANA 06/21/2017 - - Read by: Barak Butler MD Dictated Date/time: 06/21/17 16:46 Electronically Signed by: Barak Butler MD 06/21/17 16:47 FINAL REPORT [facility] Elbow 3 views DX Elbow 3 views DX Study: Elbow 3 views DX 06/21/2017 3:14 PM MANUFACTURE SPECIALIST Clinical Indication: - fall; Comparison: None. FINDINGS: 3 views right elbow. The bones are demineralized. Radial head is intact. No acute bony fracture, subluxation, dislocation or joint effusion IMPRESSION: No acute bony findings SL: ANA 06/21/2017 - - Read by: Barak Butler MD Dictated Date/time: 06/21/17 16:35 Electronically Signed by: Barak Butler MD 06/21/17 16:36 FINAL REPORT [facility] Pelvis AP DX Pelvis AP DX Patient Name: FLORENCIO BEDOLLA. : 1930; Age: 87 years y/o; Female. MR: [id number]. Ordering Physician: Jerry Morejon MD. Pelvis AP. HISTORY: Status post fall with pelvic pain. COMPARISON: Pelvis x-ray 07/10/2013. FINDINGS: Frontal view of the pelvis was obtained. Hip joint spaces are preserved bilaterally. No hip or pelvic fracture. Degenerative change of partially imaged lower lumbar spine noted. Atherosclerotic calcifications noted. IMPRESSION: No hip or pelvic fracture. Degenerative change of partially imaged lower lumbar spine. SL: [id number] 06/21/2017 - - Read by: Coleman Carrillo MD Dictated Date/time: 06/21/17 16:36 Electronically Signed by: Coleman Carrillo MD 06/21/17 16:37 FINAL REPORT [facility] Chest 1view DX Chest 1view DX Study: Chest 1view DX 06/21/2017 3:14 PM MANUFACTURE SPECIALIST Clinical Indication: - fall; Comparison: Chest x-ray 06/15/2017 FINDINGS: Cardiac silhouette stable. Aortic calcifications. No lobar consolidation, effusion, pneumothorax. Stable biapical pleural-parenchymal thickening. Bony skeleton is intact. IMPRESSION: No acute intrathoracic findings SL: ANA 06/21/2017 - - Read by: Barak Butler MD Dictated Date/time: 06/21/17 16:34 Electronically Signed by: Barak Butler MD 06/21/17 16:35 FINAL REPORT [facility] Forearm 2 views Bilateral DX Forearm 2 views Bilateral DX Patient Name: FLORENCIO BEDOLLA. : 1930; Age: 87 years y/o; Female. MR: [id number]. Ordering Physician: Jerry Morejon MD. Bilateral forearms 4 views. HISTORY: Fall with bilateral forearm pain. COMPARISON: None FINDINGS: Frontal and lateral views of bilateral forearms were obtained. Mild degenerative change of bilateral wrist noted. Chondrocalcinosis of bilateral TFCC also suspected. No fracture or dislocation. Soft tissue is unremarkable. Osteopenia noted. IMPRESSION: No evidence of fracture or dislocation of bilateral forearms. SL: [id number] 06/21/2017 - - Read by: Coleman Carrillo MD Dictated Date/time: 06/21/17 16:37 Electronically Signed by: Coleman Carrillo MD 06/21/17 16:39 FINAL REPORT [facility] CHEM PANEL eGFR 97 mL/min/1.73m2 06/20/2017 Result Comment: The eGFR is calculated using the CKD-EPI formula. In most young, healthy individuals the eGFR will be >90 mL/min/1.73m2. The eGFR declines with age. An eGFR of 60-89 may be normal in some populations, particularly the elderly, for whom the CKD-EPI formula has not been extensively validated. Use of the eGFR is not recommended in the following populations: Individuals with unstable creatinine concentrations, including patients and those with serious co-morbid conditions. Patients with extremes in muscle mass or diet. The data above are obtained from the National Kidney Disease Education Program (NKDEP) which additionally recommends that when the eGFR is used in patients with extremes of body mass index for purposes of drug dosing, the eGFR should be multiplied by the estimated BMI. [facility] CHEM PANEL CO2 26 meq/L 24 - 32 06/20/2017 [facility] CHEM PANEL Sodium Lvl 136 meq/L 135 - 145 06/20/2017 [facility] CHEM PANEL Creatinine Lvl 0.35 mg/dL 0.50 - 1.40 06/20/2017 [facility] CHEM PANEL Potassium Lvl 3.6 meq/L 3.5 - 5.1 06/20/2017 [facility] CHEM PANEL Calcium Lvl 8.4 mg/dL 8.5 - 10.5 06/20/2017 [facility] CHEM PANEL Glucose Lvl 88 mg/dL 70 - 99 06/20/2017 [facility] CHEM PANEL BUN 5 mg/dL 7 - 22 06/20/2017 [facility] CHEM PANEL Chloride Lvl 99 meq/L 95 - 109 06/20/2017 [facility] CHEM PANEL AGAP 14.6 meq/L 10.0 - 20.0 06/20/2017 [facility] HEMATOLOGY Lymphocytes 32.3 % 20.0 - 40.0 06/20/2017 [facility] HEMATOLOGY Basophils 0.7 % 0.0 - 1.0 06/20/2017 [facility] HEMATOLOGY Segs-Bands # 3.3 K/CMM 1.5 - 8.1 06/20/2017 [facility] HEMATOLOGY Monocytes 7.1 % 2.0 - 12.0 06/20/2017 [facility] HEMATOLOGY Eosinophils 0.9 % 0.0 - 4.0 06/20/2017 [facility] HEMATOLOGY Lymphocytes # 1.8 K/CMM 1.0 - 5.5 06/20/2017 [facility] HEMATOLOGY Monocytes # 0.4 K/CMM 0.0 - 0.8 06/20/2017 [facility] HEMATOLOGY Eosinophils # 0.1 K/CMM 0.0 - 0.5 06/20/2017 [facility] HEMATOLOGY Segs 59.0 % 45.0 - 75.0 06/20/2017 [facility] HEMATOLOGY Platelet 241 K/CMM 133 - 450 06/20/2017 [facility] MPV 8.8 fL 7.4 - 10.4 06/20/2017 [facility] HEMATOLOGY MCV 98.3 fL 80.0 - 98.0 06/20/2017 [facility] RDW 12.8 % 11.5 - 14.5 06/20/2017 [facility] Hct 34.2 % 36.0 - 48.0 06/20/2017 [facility] MCHC 34.7 g/dL 32.0 - 36.0 06/20/2017 [facility] MCH 34.2 pg 27.0 - 31.0 06/20/2017 [facility] WBC 5.6 K/CMM 3.7 - 10.4 06/20/2017 [facility] Hgb 11.9 g/dL 12.0 - 16.0 06/20/2017 [facility] HEMATOLOGY RBC 3.48 M/CMM 4.20 - 5.40 06/20/2017 [facility] ELECTROLYTES CO2 30 meq/L 24 - 32 06/18/2017 [facility] ELECTROLYTES AGAP 8.0 meq/L 10.0 - 20.0 06/18/2017 [facility] ELECTROLYTES Calcium Lvl 8.7 mg/dL 8.5 - 10.5 06/18/2017 [facility] ELECTROLYTES eGFR 88 mL/min/1.73m2 06/18/2017 Result Comment: The eGFR is calculated using the CKD-EPI formula. In most young, healthy individuals the eGFR will be >90 mL/min/1.73m2. The eGFR declines with age. An eGFR of 60-89 may be normal in some populations, particularly the elderly, for whom the CKD-EPI formula has not been extensively validated. Use of the eGFR is not recommended in the following populations: Individuals with unstable creatinine concentrations, including patients and those with serious co-morbid conditions. Patients with extremes in muscle mass or diet. The data above are obtained from the National Kidney Disease Education Program (NKDEP) which additionally recommends that when the eGFR is used in patients with extremes of body mass index for purposes of drug dosing, the eGFR should be multiplied by the estimated BMI. [facility] ELECTROLYTES Creatinine Lvl 0.48 mg/dL 0.50 - 1.40 06/18/2017 [facility] ELECTROLYTES Potassium Lvl 4.0 meq/L 3.5 - 5.1 06/18/2017 [facility] ELECTROLYTES BUN 7 mg/dL 7 - 22 06/18/2017 [facility] ELECTROLYTES Sodium Lvl 138 meq/L 135 - 145 06/18/2017 [facility] ELECTROLYTES Chloride Lvl 104 meq/L 95 - 109 06/18/2017 [facility] ELECTROLYTES Glucose Lvl 89 mg/dL 70 - 99 06/18/2017 [facility] ELECTROLYTES Potassium Lvl 3.5 meq/L 3.5 - 5.1 06/17/2017 [facility] ELECTROLYTES Sodium Lvl 141 meq/L 135 - 145 06/17/2017 [facility] ELECTROLYTES Glucose Lvl 94 mg/dL 70 - 99 06/17/2017 [facility] ELECTROLYTES CO2 25 meq/L 24 - 32 06/17/2017 [facility] ELECTROLYTES Chloride Lvl 105 meq/L 95 - 109 06/17/2017 [facility] ELECTROLYTES eGFR 89 mL/min/1.73m2 06/17/2017 Result Comment: The eGFR is calculated using the CKD-EPI formula. In most young, healthy individuals the eGFR will be >90 mL/min/1.73m2. The eGFR declines with age. An eGFR of 60-89 may be normal in some populations, particularly the elderly, for whom the CKD-EPI formula has not been extensively validated. Use of the eGFR is not recommended in the following populations: Individuals with unstable creatinine concentrations, including patients and those with serious co-morbid conditions. Patients with extremes in muscle mass or diet. The data above are obtained from the National Kidney Disease Education Program (NKDEP) which additionally recommends that when the eGFR is used in patients with extremes of body mass index for purposes of drug dosing, the eGFR should be multiplied by the estimated BMI. [facility] ELECTROLYTES AGAP 14.5 meq/L 10.0 - 20.0 06/17/2017 [facility] ELECTROLYTES BUN 9 mg/dL 7 - 22 06/17/2017 [facility] ELECTROLYTES Creatinine Lvl 0.46 mg/dL 0.50 - 1.40 06/17/2017 [facility] ELECTROLYTES Calcium Lvl 8.5 mg/dL 8.5 - 10.5 06/17/2017 [facility] RDW 13.2 % 11.5 - 14.5 06/17/2017 [facility] MCHC 34.4 g/dL 32.0 - 36.0 06/17/2017 [facility] MPV 8.2 fL 7.4 - 10.4 06/17/2017 [facility] Platelet 255 K/CMM 133 - 450 06/17/2017 [facility] MCH 33.9 pg 27.0 - 31.0 06/17/2017 [facility] WBC 5.1 K/CMM 3.7 - 10.4 06/17/2017 [facility] RBC 3.36 M/CMM 4.20 - 5.40 06/17/2017 [facility] Hgb 11.4 g/dL 12.0 - 16.0 06/17/2017 [facility] Hct 33.1 % 36.0 - 48.0 06/17/2017 [facility] MCV 98.5 fL 80.0 - 98.0 06/17/2017 [facility] Monocytes 7.1 % 2.0 - 12.0 06/17/2017 [facility] Eosinophils 1.0 % 0.0 - 4.0 06/17/2017 [facility] HEMATOLOGY Segs 55.0 % 45.0 - 75.0 06/17/2017 [facility] HEMATOLOGY Lymphocytes 36.3 % 20.0 - 40.0 06/17/2017 [facility] HEMATOLOGY Lymphocytes # 1.8 K/CMM 1.0 - 5.5 06/17/2017 [facility] HEMATOLOGY Monocytes # 0.4 K/CMM 0.0 - 0.8 06/17/2017 [facility] HEMATOLOGY Eosinophils # 0.1 K/CMM 0.0 - 0.5 06/17/2017 [facility] HEMATOLOGY Segs-Bands # 2.8 K/CMM 1.5 - 8.1 06/17/2017 [facility] HEMATOLOGY Basophils 0.6 % 0.0 - 1.0 06/17/2017 [facility] HEMATOLOGY MPV 8.1 fL 7.4 - 10.4 06/16/2017 [facility] MCHC 35.8 g/dL 32.0 - 36.0 06/16/2017 [facility] RDW 13.0 % 11.5 - 14.5 06/16/2017 [facility] MCH 35.0 pg 27.0 - 31.0 06/16/2017 [facility] HEMATOLOGY Platelet 266 K/CMM 133 - 450 06/16/2017 [facility] Hct 34.7 % 36.0 - 48.0 06/16/2017 [facility] Hgb 12.4 g/dL 12.0 - 16.0 06/16/2017 [facility] HEMATOLOGY MCV 97.9 fL 80.0 - 98.0 06/16/2017 [facility] HEMATOLOGY RBC 3.54 M/CMM 4.20 - 5.40 06/16/2017 [facility] HEMATOLOGY WBC 4.8 K/CMM 3.7 - 10.4 06/16/2017 [facility] HEMATOLOGY Monocytes 6.9 % 2.0 - 12.0 06/16/2017 [facility] HEMATOLOGY Segs-Bands # 2.5 K/CMM 1.5 - 8.1 06/16/2017 [facility] HEMATOLOGY Eosinophils 0.6 % 0.0 - 4.0 06/16/2017 [facility] HEMATOLOGY Lymphocytes # 1.8 K/CMM 1.0 - 5.5 06/16/2017 [facility] HEMATOLOGY Basophils 0.4 % 0.0 - 1.0 06/16/2017 [facility] HEMATOLOGY Monocytes # 0.3 K/CMM 0.0 - 0.8 06/16/2017 [facility] HEMATOLOGY Segs 53.6 % 45.0 - 75.0 06/16/2017 [facility] HEMATOLOGY Lymphocytes 38.5 % 20.0 - 40.0 06/16/2017 [facility] CARDIAC ENZYMES Troponin-I null 0.00 - 0.40 06/15/2017 [facility] CARDIAC ENZYMES Total CK 48 unit/L 12 - 191 06/15/2017 [facility] CHEM PANEL Globulin 4.3 g/dL 2.7 - 4.2 06/15/2017 [facility] CHEM PANEL A/G Ratio 0.8 0.7 - 1.6 06/15/2017 [facility] CHEM PANEL B/C Ratio 14 6 - 25 06/15/2017 [facility] CHEM PANEL Bili Total 0.4 mg/dL 0.2 - 1.3 06/15/2017 [facility] CHEM PANEL Alk Phos 76 unit/L 39 - 136 06/15/2017 [facility] CHEM PANEL AST 11 unit/L 0 - 37 06/15/2017 [facility] CHEM PANEL Total Protein 7.9 g/dL 6.4 - 8.4 06/15/2017 [facility] CHEM PANEL ALT 11 unit/L 0 - 65 06/15/2017 [facility] CHEM PANEL Albumin Lvl 3.6 g/dL 3.5 - 5.0 06/15/2017 [facility] HEMATOLOGY Basophils # 0.1 K/CMM 0.0 - 0.2 06/15/2017 [facility] URINE AND STOOL UA Renal Epi 3 /LPF <=0 /LPF 06/15/2017 [facility] URINE AND STOOL UA Urobilinogen <=1.0 mg/dL 0.1 - 1.0 06/15/2017 [facility] URINE AND STOOL UA Bacteria Many /HPF None Seen /HPF 06/15/2017 [facility] URINE AND STOOL UA Mucus Few /LPF None Seen /LPF 06/15/2017 [facility] URINE AND STOOL UA RBC 13 /HPF 0 - 2 06/15/2017 [facility] URINE AND STOOL UA WBC 63 /HPF 0 - 5 06/15/2017 [facility] URINE AND STOOL UA Sq Epi Many /LPF Few /LPF 06/15/2017 [facility] URINE AND STOOL UA Leuk Est Large *ABN* (06/15/17 3:33 PM) Negative 06/15/2017 [facility] URINE AND STOOL UA Ketones Negative mg/dL Negative mg/dL 06/15/2017 [facility] URINE AND STOOL UA Bili Negative *NA* (06/15/17 3:33 PM) Negative 06/15/2017 [facility] URINE AND STOOL UA Blood Small *ABN* (06/15/17 3:33 PM) Negative 06/15/2017 [facility] URINE AND STOOL UA Nitrite Positive *ABN* (06/15/17 3:33 PM) Negative 06/15/2017 [facility] URINE AND STOOL UA Spec Grav 1.006 <=1.030 06/15/2017 [facility] URINE AND STOOL UA pH 5.0 5.0 - 8.0 06/15/2017 [facility] URINE AND STOOL UA Turbidity Marked *ABN* (06/15/17 3:33 PM) Clear 06/15/2017 [facility] URINE AND STOOL UA Color Yellow *NA* (06/15/17 3:33 PM) Yellow 06/15/2017 [facility] URINE AND STOOL UA Protein Negative mg/dL Negative mg/dL 06/15/2017 [facility] URINE AND STOOL UA Glucose Negative mg/dL Negative mg/dL 06/15/2017 [facility] Brain wo contrast CT Brain wo contrast CT EXAM: CT BRAIN WITHOUT CONTRAST DATE: 06/15/2017 2:28 PM [employer]IST INDICATION: - confusion ADDITIONAL INFORMATION AND CT DLP: 901.26 mGy-cm. COMPARISON: CT head of 07/10/2013. TECHNIQUE: Routine axial CT images of the brain were obtained. IV contrast: None. FINDINGS: Non-contrast images of the head demonstrate no edema, hemorrhage, mass lesion or other acute intracranial abnormality. Diffuse cerebral and cerebellar atrophy and moderate chronic small vessel ischemic change. Bailey-white matter distinction is preserved. The ventricles are normal. The basal cisterns and sulci are normal in size. Marked atherosclerotic calcification of the distal internal carotid and vertebral arteries. Mild chronic inflammatory change of the paranasal sinus. Partial opacification of the mastoid air cells. IMPRESSION: 1. No definite acute infarct or intracranial hemorrhage detected. 2. Diffuse cerebral and cerebellar atrophy and moderate chronic small vessel ischemic change. If there is further concern for intracranial pathology or acute stroke, MRI of the brain may be performed for complete assessment. SL: [id number] 06/15/2017 - - Read by: Jigar Thompson MD Dictated Date/time: 06/15/17 16:04 Electronically Signed by: Jigar Thompson MD 06/15/17 16:10 FINAL REPORT [facility] Chest 1view DX Chest 1view DX Study: Chest 1view DX 06/15/2017 2:28 PM [employer]UFACT[employer]IST Patient Name: FLORENCIO BEDOLLA MR: [id number] : 1930; Age: 87 years y/o Female Ordering Physician: Blaine ePña MD Clinical Indication: Chest pain - cough Comparison: 02/06/2012. FINDINGS LUNGS: The lungs remain hyperinflated with mildly diffusely prominent interstitium greatest in the lung bases consistent with mild interstitial disease. No consolidation, pleural effusion, or pneumothorax. Stable right paratracheal opacity represents the innominate vessels. HEART AND MEDIASTINUM: Stable heart size near upper limits of normal to mildly enlarged. LINES: None. OSSEOUS STRUCTURES: No fracture, dislocation, or suspicious focal osseous lesion. OTHER: None. IMPRESSION: 1. No important interval change. SL: TPAINTER- 06/15/2017 - - Read by: Arsh Lind MD Dictated Date/time: 06/15/17 14:51 Electronically Signed by: Arsh Lind MD 06/15/17 14:53 FINAL REPORT [facility] Foot series DX Foot series DX LEFT FOOT SERIES CLINICAL HISTORY: Foot pain. COMPARISON IMAGING: None. FINDINGS: Three views were submitted for evaluation. There is an oblique, minimally displaced fracture of the distal diaphysis of the fifth metatarsal. Adjacent soft tissues are swollen. No other fractures are identified. Bones are demineralized. Monckeberg calcifications are present, as can be seen with diabetes and/or hyperparathyroidism. IMPRESSION: Fifth metatarsal fracture. 11/14/2014 - - Read by: Ephraim Boogie MD Dictated Date/time: 11/15/14 09:00 Electronically Signed by: Ephraim Boogie MD 11/15/14 09:01 FINAL REPORT [facility] Hand 3 views DX Hand 3 views DX Exam: Left hand x-ray, 3 views Reason for Exam: Hand contusion Comparison Exam: None Discussion: No fractures or dislocations are seen of the left hand. The joint spaces are preserved. No intraosseous lesions. No radiopaque foreign bodies. Impression: 1. No acute bony abnormalities seen within the left hand. 10/09/2014 - - Read by: Eze Sanders MD Dictated Date/time: 10/09/14 15:33 Electronically Signed by: Eze Sanders MD 10/09/14 15:35 FINAL REPORT [facility] Elbow 3 views DX Elbow 3 views DX Exam: Left hand x-ray, 3 views Reason for Exam: Elbow pain Comparison Exam: Left humerus x-ray 07/10/2013 Discussion: No fractures or dislocations are seen of the left elbow. The joint spaces are preserved. No intraosseous lesions. No radiopaque foreign bodies. Impression: 1. No acute bony abnormalities seen within the left elbow. 10/09/2014 - - Read by: Eze Sanders MD Dictated Date/time: 10/09/14 15:35 Electronically Signed by: Eze Sanders MD 10/09/14 15:36 FINAL REPORT [facility] LIPIDS Trig 108 mg/dL <=149 mg/dL 07/13/2013 [facility] LIPIDS Chol 149 mg/dL <=199 mg/dL 07/13/2013 [facility] HDL 32 mg/dL >=61 mg/dL 07/13/2013 [facility] LIPIDS CHD Risk 4.66 3.90 - 5.80 07/13/2013 [facility] LIPIDS VLDL 22 07/13/2013 [facility] LDL (Calculated) 95 mg/dL <=99 mg/dL 07/13/2013 [facility] Brain wo contrast MRI Brain wo contrast MRI MRI BRAIN WITHOUT CONTRAST INDICATION: Vertigo COMPARISON: CT brain 07/10/2013 DISCUSSION: Image detail is degraded by motion artifacts. There are generalized involutional changes of the brain and microangiopathic changes of the white matter. There is no evidence of acute vascular insults, space occupying lesions, hemorrhage, hydrocephalus, midline shift, or extra- axial collections. No cortical based, suprasellar, craniocervical, or bone marrow abnormalities are seen. IMPRESSION: Chronic age related changes of the brain. No acute intracranial abnormalities are visualized. SL: 16 07/12/2013 - - Read by: Thang Garza Dictated Date/time: 07/13/13 08:23 Electronically Signed by: Thang Garza MD 07/13/13 08:26 FINAL REPORT [facility] Carotid artery bilateral Duplex US Carotid artery bilateral Duplex US HISTORY: Carotid artery stenosis. Note: "Any reported ICA stenoses indirectly reference the distal internal carotid diameter as the denominator for stenosis measurement, using consensus panel criteria." Right ICA peak systolic velocity 0.9 m/sec. Left ICA peak systolic velocity 0.9 m/sec. The internal to common carotid artery systolic velocity ratios approach 1.0 There is mild eccentric plaque the right carotid bulb on grayscale and color flow images. No high-grade stenosis otherwise suggested. Antegrade vertebral artery flow bilaterally. IMPRESSION: Less than 50% stenosis in the ICA bilaterally by sonographic criteria SL:13 07/12/2013 - - Read by: Joseph Koroma Dictated Date/time: 07/12/13 14:58 Electronically Signed by: Joseph Koroma MD 07/12/13 15:00 FINAL REPORT [facility] CARDIAC ENZYMES CK MB 0.6 ng/mL 0.5 - 3.6 07/11/2013 [facility] CARDIAC ENZYMES CK-MB INDEX 0.6 0.0 - 2.5 07/11/2013 [facility] CARDIAC ENZYMES Total CK 109 unit/L 12 - 191 07/11/2013 [facility] CARDIAC ENZYMES Troponin-I null 0.00 - 0.40 07/11/2013 [facility] CHEM PANEL eGFR 84 mL/min/1.73m2 07/11/2013 1Result Comment: The eGFR is calculated using the CKD-EPI formula. In most young, healthy individuals the eGFR will be >90 mL/min/1.73m2. The eGFR declines with age. An eGFR of 60-89 may be normal in some populations, particularly the elderly, for whom the CKD-EPI formula has not been extensively validated. Use of the eGFR is not recommended in the following populations: Individuals with unstable creatinine concentrations, including patients and those with serious co-morbid conditions. Patients with extremes in muscle mass or diet. The data above are obtained from the National Kidney Disease Education Program (NKDEP) which additionally recommends that when the eGFR is used in patients with extremes of body mass index for purposes of drug dosing, the eGFR should be multiplied by the estimated BMI. [facility] CHEM PANEL BUN 5 mg/dL 7 - 22 07/11/2013 [facility] CHEM PANEL Sodium Lvl 136 meq/L 135 - 145 07/11/2013 [facility] CHEM PANEL Creatinine Lvl 0.6 mg/dL 0.5 - 1.4 07/11/2013 [facility] CHEM PANEL CO2 27 meq/L 24 - 32 07/11/2013 [facility] CHEM PANEL Chloride Lvl 103 meq/L 95 - 109 07/11/2013 [facility] CHEM PANEL Calcium Lvl 8.7 mg/dL 8.5 - 10.5 07/11/2013 [facility] CHEM PANEL AGAP 9.9 meq/L 10.0 - 20.0 07/11/2013 [facility] CHEM PANEL Glucose Lvl 154 mg/dL 70 - 99 07/11/2013 3Interpretive Data: Adult reference range values reflect the clinical guidelines of the [place] [employer]. [facility] CHEM PANEL Potassium Lvl 3.9 meq/L 3.5 - 5.1 07/11/2013 [facility] CHEM PANEL Magnesium Lvl 2.0 mg/dL 1.8 - 2.4 07/11/2013 [facility] URINE AND STOOL UA Color Ltyellow 07/11/2013 [facility] URINE AND STOOL UA Urobilinogen <=1.0 mg/dL 0.1 - 1.0 07/11/2013 [facility] URINE AND STOOL UA Leuk Est Large *ABN* (07/10/2013 23:36:00 [place]) Negative 07/11/2013 [facility] URINE AND STOOL UA Sq Epi Occasional /LPF Few /LPF 07/11/2013 [facility] URINE AND STOOL UA Blood Small *ABN* (07/10/2013 23:36:00 [facility]/[place]) Negative 07/11/2013 [facility] URINE AND STOOL UA Nitrite Negative (07/10/2013 23:36:00 [facility]/[place]) Negative 07/11/2013 [facility] URINE AND STOOL UA WBC 9 /HPF 0 - 5 07/11/2013 [facility] URINE AND STOOL UA Amorph Lucretia Occasional /HPF None Seen /HPF 07/11/2013 [facility] URINE AND STOOL UA RBC 3 /HPF 0 - 2 07/11/2013 [facility] URINE AND STOOL UA Bacteria Occasional /HPF None Seen /HPF 07/11/2013 [facility] URINE AND STOOL UA pH 6.0 5.0 - 8.0 07/11/2013 [facility] URINE AND STOOL UA Turbidity Clear (07/10/2013 23:36:00 [place]) Clear 07/11/2013 [facility] URINE AND STOOL UA Spec Grav 1.003 <=1.030 07/11/2013 [facility] URINE AND STOOL UA Ketones Trace mg/dL Negative mg/dL 07/11/2013 [facility] URINE AND STOOL UA Glucose Negative mg/dL Negative mg/dL 07/11/2013 [facility] URINE AND STOOL UA Bili Negative *NA* (07/10/2013 23:36:00 [place]) Negative 07/11/2013 [facility] URINE AND STOOL UA Protein Negative mg/dL Negative mg/dL 07/11/2013 [facility] CARDIAC ENZYMES Troponin-I null 0.00 - 0.40 07/11/2013 [facility] CARDIAC ENZYMES CK MB 0.8 ng/mL 0.5 - 3.6 07/11/2013 [facility] CARDIAC ENZYMES Total CK 135 unit/L 12 - 191 07/11/2013 [facility] CARDIAC ENZYMES CK-MB INDEX 0.6 0.0 - 2.5 07/11/2013 [facility] CHEM PANEL eGFR 84 mL/min/1.73m2 07/11/2013 2Result Comment: The eGFR is calculated using the CKD-EPI formula. In most young, healthy individuals the eGFR will be >90 mL/min/1.73m2. The eGFR declines with age. An eGFR of 60-89 may be normal in some populations, particularly the elderly, for whom the CKD-EPI formula has not been extensively validated. Use of the eGFR is not recommended in the following populations: Individuals with unstable creatinine concentrations, including patients and those with serious co-morbid conditions. Patients with extremes in muscle mass or diet. The data above are obtained from the National Kidney Disease Education Program (NKDEP) which additionally recommends that when the eGFR is used in patients with extremes of body mass index for purposes of drug dosing, the eGFR should be multiplied by the estimated BMI. [facility] CHEM PANEL CO2 28 meq/L 24 - 32 07/11/2013 [facility] CHEM PANEL Chloride Lvl 99 meq/L 95 - 109 07/11/2013 [facility] CHEM PANEL Potassium Lvl 3.2 meq/L 3.5 - 5.1 07/11/2013 [facility] CHEM PANEL Calcium Lvl 9.0 mg/dL 8.5 - 10.5 07/11/2013 [facility] CHEM PANEL Glucose Lvl 125 mg/dL 70 - 99 07/11/2013 4Interpretive Data: Adult reference range values reflect the clinical guidelines of the [place] [employer]. [facility] CHEM PANEL AGAP 13.2 meq/L 10.0 - 20.0 07/11/2013 [facility] CHEM PANEL Sodium Lvl 137 meq/L 135 - 145 07/11/2013 [facility] CHEM PANEL Creatinine Lvl 0.6 mg/dL 0.5 - 1.4 07/11/2013 [facility] CHEM PANEL BUN 6 mg/dL 7 - 22 07/11/2013 [facility] CHEM PANEL Magnesium Lvl 1.7 mg/dL 1.8 - 2.4 07/11/2013 [facility] INR 1.19 0.85 - 1.17 07/11/2013 5Interpretive Data: RECOMMENDED RANGES FOR PROTIME INR: 2.0-3.0 for most medical and surgical thromboembolic states. 2.5-3.5 for artificial heart valves and recurrent embolism. INR SHOULD BE USED ONLY FOR PATIENTS ON STABLE ANTICOAGULANT THERAPY. [facility] PROTIME 15.0 s 12.0 - 14.7 07/11/2013 [facility] aPTT 39.6 s 22.9 - 35.8 07/11/2013 6Interpretive Data: Heparin Therapeutic Range: 57 - 92 Seconds [facility] MCV 99.0 fL 81.0 - 99.0 07/11/2013 [facility] Hct 32.4 % 36.0 - 48.0 07/11/2013 [facility] Hgb 11.2 g/dL 12.0 - 16.0 07/11/2013 [facility] RBC X 10x6 3.27 M/CMM 4.20 - 5.40 07/11/2013 [facility] WBC X 10x3 13.4 K/CMM 3.7 - 10.4 07/11/2013 [facility] RDW 12.6 % 11.5 - 14.5 07/11/2013 [facility] MCHC 34.5 g/dL 32.0 - 36.0 07/11/2013 [facility] Platelet 355 K/CMM 133 - 450 07/11/2013 [facility] MCH 34.2 pg 27.0 - 31.0 07/11/2013 [facility] MPV 7.7 fL 7.4 - 10.4 07/11/2013 [facility] Basophils # 0.0 K/CMM 0.0 - 0.2 07/11/2013 [facility] Eosinophils # 0.1 K/CMM 0.0 - 0.5 07/11/2013 [facility] Monocytes # 0.6 K/CMM 0.0 - 0.8 07/11/2013 [facility] Segs-Bands # 11.3 K/CMM 1.5 - 8.1 07/11/2013 [facility] Lymphocytes # 1.4 K/CMM 1.0 - 5.5 07/11/2013 [facility] Segs 84.5 % 45.0 - 75.0 07/11/2013 [facility] Lymphocytes 10.3 % 20.0 - 40.0 07/11/2013 [facility] HEMATOLOGY Plt Morph Normal (07/10/2013 21:56:00 [place]rime/[place]) 07/11/2013 [facility] HEMATOLOGY Eosinophils 0.8 % 0.0 - 4.0 07/11/2013 [facility] HEMATOLOGY Basophils 0.1 % 0.0 - 1.0 07/11/2013 [facility] Monocytes 4.3 % 2.0 - 12.0 07/11/2013 [facility] RBC Morph Normal (07/10/2013 21:56:00 [place]) 07/11/2013 [facility] Spine cervical wo contrast CT Spine cervical wo contrast CT Examination: CT scan of the cervical spine without contrast. HISTORY: Trauma COMPARISON: None available. DLP: 457.66 TECHNIQUE: Multiple axial CT images of the cervical spine were obtained without the administration of intravenous contrast. Multiplanar reformatted images were subsequently performed. FINDINGS: Anatomic alignment is maintained across the cervical spine. No acute fracture-dislocation is seen. 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 Mild to moderate facet arthrosis in the lower cervical spine is noted. Multilevel spinal canal stenosis from C3- C4 through C5-C6 is seen. Moderate to severe bilateral neuroforaminal narrowing, left greater than right, at C5-C6 is seen. The paravertebral soft tissues are unremarkable. The visualized lung apices are normal in appearance. IMPRESSION: Multilevel degenerative changes of the cervical spine without evidence of acute injury. SL: 14 07/10/2013 - - Read by: Grant Armenta Dictated Date/time: 07/10/13 21:16 Electronically Signed by: Grant Armenta MD 07/10/13 21:18 FINAL REPORT [facility] Brain wo contrast CT Brain wo contrast CT Examination: CT scan of the brain without contrast. HISTORY: Weakness COMPARISON: None available. DLP: 859.11 TECHNIQUE: Multiple axial CT images of the brain were obtained without the administration of intravenous contrast. FINDINGS: Generalized age-related atrophy of the brain parenchyma is seen. Chronic microvascular ischemic changes are noted. No acute intracranial hemorrhage, mass effect, midline shift, or hydrocephalus is seen. There are no extra-axial fluid collections. The visualized paranasal sinuses and mastoid air cells are well-aerated. The optic globes and retrobulbar soft tissues are unremarkable. IMPRESSION: No acute intracranial abnormality. SL: 14 07/10/2013 - - Read by: Grant Armenta Dictated Date/time: 07/10/13 21:15 Electronically Signed by: Grant Armenta MD 07/10/13 21:16 FINAL REPORT [facility] Humerus AP lateral Humerus AP lateral Examination: Left humerus, 2 views History: Trauma Comparison: None. Findings: Multiple views of the left humerus show no acute bony fracture or joint dislocation. The bones are demineralized. The soft tissues are unremarkable. IMPRESSION: No acute bony abnormality of the left humerus. SL: 14 07/10/2013 - - Read by: Grant Armenta Dictated Date/time: 07/10/13 21:47 Electronically Signed by: Grant Armenta MD 07/10/13 21:48 FINAL REPORT [facility] Pelvis AP Pelvis AP Examination: Pelvis, single view History: Trauma Comparison: None. Findings: Single frontal view of the pelvis shows no displaced bony fracture or joint dislocation. The bones are demineralized. Vaginal pessary is seen. Arterial calcifications are present. Chondrocalcinosis the bilateral hips is seen. IMPRESSION: No acute bony abnormality of the pelvis. SL: 14 07/10/2013 - - Read by: Grant Armenta Dictated Date/time: 07/10/13 21:42 Electronically Signed by: Grant Armenta MD 07/10/13 21:43 FINAL REPORT [facility] Vital Signs Vital Sign Value Date Comments Source Systolic (mm Hg) 120 06/28/2017 [facility] Diastolic (mm Hg) 76 06/28/2017 [facility] Respitory Rate 18 06/28/2017 [facility] Heart Rate 73 06/28/2017 [facility] Temperature Oral (F) 98.0 F 06/28/2017 [facility] Temperature Oral (F) 98.5 F 06/28/2017 [facility] Systolic (mm Hg) 122 06/28/2017 [facility] Diastolic (mm Hg) 60 06/28/2017 [facility] Heart Rate 80 06/28/2017 [facility] Respitory Rate 18 06/28/2017 [facility] Systolic (mm Hg) 118 06/28/2017 [facility] Diastolic (mm Hg) 65 06/28/2017 [facility] Respitory Rate 18 06/28/2017 [facility] Heart Rate 93 06/28/2017 [facility] Temperature Oral (F) 98.3 F 06/28/2017 [facility] Weight 46.364 06/26/2017 [facility] Weight 45.909 06/22/2017 [facility] Height 152.4 cm 06/22/2017 [facility] BMI Calculated 19.77 06/22/2017 [facility] Weight 72.727 06/22/2017 [facility] Respitory Rate 18 06/22/2017 [facility] Systolic (mm Hg) 157 06/22/2017 [facility] Diastolic (mm Hg) 65 06/22/2017 [facility] Heart Rate 90 06/22/2017 [facility] Respitory Rate 20 06/22/2017 [facility] Heart Rate 95 06/22/2017 [facility] Systolic (mm Hg) 148 06/22/2017 [facility] Diastolic (mm Hg) 68 06/22/2017 [facility] Heart Rate 103 06/21/2017 [facility] Systolic (mm Hg) 152 06/21/2017 [facility] Diastolic (mm Hg) 72 06/21/2017 [facility] Respitory Rate 20 06/21/2017 [facility] Temperature Oral (F) 99 F 06/21/2017 [facility] Weight 45.455 06/21/2017 [facility] BMI Calculated 18.93 06/21/2017 [facility] Height 154.94 cm 06/21/2017 [facility] Temperature Oral (F) 98.8 F 06/20/2017 [facility] Heart Rate 71 06/20/2017 [facility] Systolic (mm Hg) 120 06/20/2017 [facility] Diastolic (mm Hg) 69 06/20/2017 [facility] Respitory Rate 16 06/20/2017 [facility] Temperature Oral (F) 97.4 F 06/20/2017 [facility] Systolic (mm Hg) 124 06/20/2017 [facility] Diastolic (mm Hg) 69 06/20/2017 [facility] Respitory Rate 16 06/20/2017 [facility] Heart Rate 73 06/20/2017 [facility] Systolic (mm Hg) 122 06/20/2017 [facility] Diastolic (mm Hg) 62 06/20/2017 [facility] Respitory Rate 16 06/20/2017 [facility] Heart Rate 79 06/20/2017 [facility] Temperature Oral (F) 98.3 F 06/20/2017 [facility] BMI Calculated 19.57 06/16/2017 [facility] Weight 45.455 06/16/2017 [facility] Height 152.4 cm 06/16/2017 [facility] Weight 61.364 06/15/2017 [facility] Heart Rate 81 07/13/2013 [facility] Temperature Oral (F) 98.1 F 07/13/2013 [facility] Systolic (mm Hg) 120 07/13/2013 [facility] Respitory Rate 16 07/13/2013 [facility] Diastolic (mm Hg) 65 07/13/2013 [facility] Heart Rate 85 07/13/2013 [facility] Temperature Oral (F) 98.0 F 07/13/2013 [facility] Diastolic (mm Hg) 62 07/13/2013 [facility] Systolic (mm Hg) 111 07/13/2013 [facility] Respitory Rate 16 07/13/2013 [facility] Temperature Oral (F) 97.9 F 07/13/2013 [facility] Heart Rate 109 07/13/2013 [facility] Diastolic (mm Hg) 61 07/13/2013 [facility] Systolic (mm Hg) 122 07/13/2013 [facility] Respitory Rate 15 07/13/2013 [facility] Height 154.94 cm 07/11/2013 [facility] Weight 63.636 07/11/2013 [facility] BMI Calculated 26.51 07/11/2013 [facility] Encounters Location Location Details Encounter Type Encounter Number Reason For Visit Attending Provider ADM Date DC Date Status Source [facility] OBS Observation Patient [id number] _[id number] Flo Bhagat 07/11/2013 07/13/2013 [facility] [place] [facility] [id number] Eze Collins 10/09/2014 10/10/2014 [facility] [place] [facility] [id number] Eze Collins 11/14/2014 11/15/2014 [facility] [id number] Shaggy Jain 06/15/2017 06/21/2017 [facility] Emergency [id number] Barak Ho 06/21/2017 06/22/2017 [facility] Inpatient [id number] Otoniel Dela Cruzy 06/22/2017 06/28/2017 [facility] Procedures Procedure Code Date Perfomer Comments Source Cholecystectomy [id number] [facility] [place] Cystoscopy [id number] [facility] [place] Cholecystectomy [id number] [facility] Cystoscopy [id number] [place]olecyst[facility] [id number] [facility] Cystoscopy [id number] [facility]
--- OUTSIDE RECORDS SUMMARY | 2018-02-06 13:20 | XMS REPORT | Summary of Care ---
Author Organization Unknown Address Unknown Phone Unavailable Encounter HQ Encntr_alias(FIN) [id number] Date(s): 10/09/14 - 10/09/[address] [facility] Outpatient Imaging - [id number] [place] [address] [phone] Discharge Disposition: Home Physician Attending: Eze Collins MD Vital Signs No data [...]
--- OUTSIDE RECORDS SUMMARY | 2018-02-06 13:20 | XMS REPORT | Summary of Care ---
Author Organization Unknown Address Unknown Phone Unavailable Encounter Dates Location Diagnoses [facility]charge Providers [facility] [id number] Karla [address] Reason for Visit FALLS, HYPOKALEMIA, HYPOMAGNESEMIA, TACHYCARDIA Vital Signs 1 2 3 Most recent to oldest [Reference Range]: 154.94 cm (07/10/2013 20:21:00 [facility] Height 98.1 DegF (07/13/2013 08:00:00 [facility]) 98.0 DegF (07/13/2013 03:43:00 [facility]) 97.9 DegF (07/12/2013 23:51:00 [facility]) Temperature Oral [96.4-99.1 DegF] 120 mmHg (07/13/2013 08:00:00 [facility]) 111 mmHg (07/13/2013 03:43:00 [facility]) 122 mmHg (07/12/2013 23:51:00 [facility]) Systolic Blood Pressure [90-140 mmHg] 65 mmHg (07/13/2013 08:00:00 [facility]) 62 mmHg (07/13/2013 03:43:00 [facility]) 61 mmHg (07/12/2013 23:51:00 [facility]) Diastolic Blood Pressure [60-90 mmHg] 16 BRMIN (07/13/2013 08:00:00 [facility]) 16 BRMIN (07/13/2013 03:43:00 [facility]) 15 BRMIN (07/12/2013 23:51:00 [facility]) Respiratory Rate [14-20 BRMIN] 81 bpm (07/13/2013 08:00:00 [facility]) 85 bpm (07/13/2013 03:43:00 [facility]) 109 bpm *HI* (07/12/2013 23:51:00 [facility]) Peripheral Pulse Rate [60-100 bpm] 63.636 kg (07/10/2013 20:21:00 [facility]) Weight 26.51 m2 (07/10/2013 20:21:00 [facility]) Body Mass Index Problem List No data available for this section Allergies, Adverse Reactions, Alerts Status Substance Reaction Severity Active penicillins Medications Medication Instructions Start Date Stop Date Status aspirin 81 mg 81 mg, 1 tab, Route: PO, Drug form: 07/13/2013 07/13/2013 Discontinued tablet, enteric ECTAB, Daily, Dosing Weight 63.636, coated kg, Priority: Routine, Start date: 07/13/13 9:00:00, Duration: 30 day, Stop date: 08/11/13 9:00:00 Do not crush or chew.(Same As: Ecotrin) Ativan 1 mg, 0.5 mL, Route: IV, Drug form: 07/12/2013 07/12/2013 Completed INJ, ONCE, Dosing Weight 63.636, kg, Start date: 07/12/13 14:26:00, Stop date: 07/12/13 14:26:00 (Same as: Ativan) atropine 0.5 mg, 5 mL, Route: IVP, Drug 07/11/2013 07/13/2013 Discontinued form: INJ, PRN, PRN Bradycardia, Start date: 07/11/13 2:28:00, Duration: 30 day, Stop date: 08/10/13 2:27:00 Crestor 5 mg, 0.5 tab, Route: PO, Drug 07/12/2013 07/13/2013 Discontinued form: TAB, Bedtime, Dosing Weight 63.636, kg, Start date: 07/12/13 21:00:00, Duration: 30 day, Stop date: 08/10/13 21:00:00 (Same As: Crestor) Crestor 5 mg oral 5 mg=1 tab, PO, Bedtime, # 30 tab, 07/11/2013 Ordered tablet 0 Refill(s) Fosamax 70 mg, Route: PO, Drug form: TAB, 07/12/2013 07/12/2013 Deleted Q7D, Dosing Weight 63.636, kg, Start date: 07/12/13 17:00:00, Duration: 30 day, Stop date: 08/09/13 9:00:00 Fosamax 10 mg, 1 tab, Route: PO, Drug form: 07/13/2013 07/13/2013 Discontinued TAB, Q630AM, Start date: 07/13/13 6:30:00, Duration: 30 day, Stop date: 08/11/13 6:30:00 Give 30 min before breakfast w/6oz water. Sit upright for 30 min after dose."Do Not Crush" (Same as: Fosamax) Fosamax 70 mg oral 70 mg=1 tab, PO, Q7D, # 12 tab, 0 07/11/2013 Ordered tablet Refill(s) influenza virus 0.5 mL, Route: IM, Drug Form: SUSP, 07/11/2013 07/11/2013 Completed vaccine, inactivated Daily, Start date: 07/11/13 9:00:00, Duration: 1 doses or times, Stop date: 07/11/13 9:00:00 (Same as: Fluzone, Fluvirin) Shake well prior to administration K-Dur 20 40 mEq, Route: PO, ONCE, Dosing 07/11/2013 07/11/2013 Completed Weight 63.636, kg, Start date: 07/11/13 1:13:00, Stop date: 07/11/13 1:13:00 magnesium oxide 400 mg, 1 tab, Route: PO, Drug 07/11/2013 07/11/2013 Completed form: TAB, ONCE, Dosing Weight 63.636, kg, Start date: 07/11/13 0:17:00, Stop date: 07/11/13 0:17:00 (Same as: Mag-Ox 400)Magnesium oxide 429rp=421yr elemental magnesiumDose=____mg magnesium oxide (___mg elemental magnesium) morphine Sulfate 2 mg, 1 mL, Route: IVP, Drug form: 07/11/2013 07/13/2013 Discontinued INJ, Q3H, Dosing Weight 63.636, kg, PRN Pain Score 4-6, Start date: 07/11/13 2:18:00, Duration: 30 day, Stop date: 08/10/13 2:17:00 (Same as:MORPhine Sulfate) nitroglycerin 0.4 mg 0.4 mg, 1 tab, Route: SL, Drug 07/11/2013 07/13/2013 Discontinued sublingual tablet form: TAB, Q5Min, PRN Chest Pain, Start date: 07/11/13 2:28:00, Duration: 30 day, Stop date: 08/10/13 2:27:00 (Same as:Nitroquick, Nitrostat)"Do Not Crush" Sublingual tablet NS + KCL 20mEq/L 1,000 mL, Rate: 75 ml/hr, Infuse 07/11/2013 07/13/2013 Discontinued 1000ml (Premix) over: 13.3 hr, Route: IV, Dosing 1,000 mL Weight 63.636 kg, Total Volume: 1,000, Start date: 07/11/13 2:18:00, Duration: 30 day, Stop date: 08/10/13 2:17:00 PREMIX IV - Do Not Alter ondansetron 4 mg, 2 mL, Route: IVP, Drug form: 07/11/2013 07/13/2013 Discontinued INJ, Q8H, Dosing Weight 63.636, kg, PRN Nausea & Vomiting, Start date: 07/11/13 2:18:00, Duration: 30 day, Stop date: 08/10/13 2:17:00 (Same as: Zofran) pneumococcal 0.5 ml, Route: IM, Drug Form: INJ, 07/11/2013 07/11/2013 Completed 23-valent vaccine Daily, Start date: 07/11/13 9:00:00, Duration: 1 doses or times, Stop date: 07/11/13 9:00:00 (Same as: Pneumovax 23) Refrigerate Saline Flush 0.9% 5 ml, Route: IVP, Drug Form: INJ, 07/11/2013 07/13/2013 Discontinued Dosing Weight 63.636, kg, PRN, PRN Line Flush, Start date: 07/11/13 2:18:00, Duration: 30 day, Stop date: 08/10/13 2:17:00 (Same as: BD Posiflush) Xalatam Multi-Pack 1 drp, Route: OPTH, Drug Form: 07/12/2013 07/12/2013 Deleted 0.005% ophthalmic SOLN, Dosing Weight 63.636, kg, solution Bedtime, Start date: 07/12/13 21:00:00, Duration: 30 day, Stop date: 08/10/13 21:00:00 Xalatam Multi-Pack 1 drp, OPTH, Bedtime, # 3 ml, 0 07/11/2013 Ordered 0.005% ophthalmic Refill(s) solution Xalatan 0 Refill(s) 07/11/2013 Ordered Xalatan ophthalmic 1 drp, Route: OPTH, Bedtime, Drug 07/12/2013 07/13/2013 Discontinued 0.005% solution form: SOLN, Start date: 07/12/13 21:00:00, Duration: 30 day, Stop date: 08/10/13 21:00:00 Keep refrigerated. (Same as:Xalatan) Xalatan ophthalmic 1 drp, OPTH, Bedtime, # 3 ml, 0 07/11/2013 07/13/2013 Discontinued 0.005% solution Refill(s) Results ELECTROLYTES Most recent to 1 2 oldest [Reference Range]: Sodium Lvl [135-145 136 mEq/L 137 mEq/L mEq/L] (07/11/2013 [facility]:03[facility] (07/10/2013 21:56:00 [facility]) Potassium Lvl 3.9 mEq/L 3.2 mEq/L [3.5-5.1 mEq/L] (07/11/2013 09:03:[facility] *LOW* (07/10/2013 21:56:00 [facility]) Chloride Lvl [95-109 103 mEq/L 99 mEq/L mEq/L] (07/11/2013 09:03:[facility] (07/10/2013 21:56:00 [facility]) CO2 [24-32 mEq/L] 27 mEq/L 28 mEq/L (07/11/2013 09[facility]03:[facility] (07/10/2013 21:56:00 [facility]) AGAP [10.0-20.0 9.9 mEq/L 13.2 mEq/L mEq/L] *LOW* (07/10/2013 21:56:00 [facility] (07/11/2013 09:03:00 [facility]) CHEM PANEL Most recent to 1 2 oldest [Reference Range]: Creatinine Lvl 0.6 mg/dL 0.6 mg/dL [0.5-1.4 mg/dL] (07/11/2013 09:03:00 [facility]) (07/10/2013 21:56:00 [facility]) eGFR 84 mL/min/1.73m2 1 84 mL/min/1.73m2 2 *NA* *NA* (07/11/2013 09:03:00 [facility]) (07/10/2013 21:56:00 [facility]) BUN [7-22 mg/dL] 5 mg/dL 6 mg/dL *LOW* *LOW* (07/11/2013 09:03:00 [facility]) (07/10/2013 21:56:00 [facility]) Glucose Lvl [70-99 154 mg/dL 3 125 mg/dL 4 mg/dL] *HI* *HI* (07/11/2013 09:03:00 [facility]) (07/10/2013 21:56:00 [facility]) Calcium Lvl 8.7 mg/dL 9.0 mg/dL [8.5-10.5 mg/dL] (07/11/2013 09:03:00 [facility]) (07/10/2013 21:56:00 [facility]) Magnesium Lvl 2.0 mg/dL 1.7 mg/dL [1.8-2.4 mg/dL] (07/11/2013 09:03:00 [facility]) *LOW* (07/10/2013 21:56:00 [facility]) 1Result Comment: The eGFR is calculated using [...] from the National Kidney Disease Education Program ( NKDEP) which additionally recommends that when the eGFR is used in patients with extremes of body mass index for purposes of drug dosing, the eGFR should be mul tiplied by the estimated BMI. 2Result Comment: The eGFR is calculated using [...] from the National Kidney Disease Education Program ( NKDEP) which additionally recommends that when the eGFR is used in patients with extremes of body mass index for purposes of drug dosing, the eGFR should be mul tiplied by the estimated BMI. 3Interpretive Data: Adult reference range values reflect the clinical guidelines of the [place] [employer]. 4Interpretive Data: Adult reference range values reflect the clinical guidelines of the [employer]. CARDIAC ENZYMES Most recent to 1 2 oldest [Reference Range]: Total CK [12-191 109 unit/L 135 unit/L unit/L] (07/11/2013 09:03:00 [facility]) (07/10/2013 21:56:00 [facility]) CK MB [0.5-3.6 0.6 ng/mL 0.8 ng/mL ng/mL] (07/11/2013 09:03:00 [facility]) (07/10/2013 [facility]56[facility] CK MB Index 0.6 0.6 [0.0-2.5] (07/11/2013 09:03:00 [facility]) (07/10/2013 21:56:00 [facility]) Troponin-I <0.02 ng/mL <0.02 ng/mL [0.00-0.40 ng/mL] (07/11/2013 09:03:00 [facility]) (07/10/2013 21:56:00 [facility]) LIPIDS Most recent to 1 2 oldest [Reference Range]: CHD Risk [3.90-5.80] 4.66 (07/13/2013 03:32:00 [facility] Chol [<=199 mg/dL] 149 mg/dL (07/13/2013 03:32:00 [facility]) Trig [<=149 mg/dL] 108 mg/dL (07/13/2013 03:32:00 [facility]) HDL [>=61 mg/dL] 32 mg/dL *LOW* (07/13/2013 03:32:00 [facility]) LDL (Calculated) 95 mg/dL [<=99 mg/dL] (07/13/2013 03:32:00 [facility]) VLDL 22 *NA* (07/13/2013 03:32:00 [facility]) URINE AND STOOL Most recent to 1 2 oldest [Reference Range]: UA Turbidity [Clear] Clear (07/10/2013 23:36:00 [facility]) UA Color Ltyellow *NA* (07/10/2013 23:36:00 [facility]) UA pH [5.0-8.0] 6.0 (07/10/2013 23:36:00 [facility]) UA Spec Grav 1.003 [<=1.030] (07/10/2013 23:36:00 [facility]) UA Glucose [Negative Negative mg/dL mg/dL] *NA* (07/10/2013 23:36:00 [facility]) UA Blood [Negative] Small *ABN* (07/10/2013 23:36:00 [facility]) UA Ketones [Negative Trace mg/dL mg/dL] *ABN* (07/10/2013 23:36:00 [facility]) UA Protein [Negative Negative mg/dL mg/dL] (07/10/2013 23:36:00 [facility]) UA Urobilinogen <=1.0 mg/dL [0.1-1.0 mg/dL] *NA* (07/10/2013 23:36:00 [facility]) UA Bili [Negative] Negative *NA* (07/10/2013 23:36:00 [facility]) UA Leuk Est Large [Negative] *ABN* (07/10/2013 23:36:00 [facility]) UA Nitrite Negative [Negative] (07/10/2013 23:36:00 [facility]) UA WBC [0-5 /HPF] 9 /HPF *HI* (07/10/2013 23:36:00 [facility]) UA RBC [0-2 /HPF] 3 /HPF *HI* (07/10/2013 23:36:00 [facility]) UA Bacteria [None Occasional /HPF Seen /HPF] *NA* (07/10/2013 23:36:00 [facility]) UA Sq Epi [Few /LPF] Occasional /LPF *NA* (07/10/2013 23:36:00 [facility]) UA Amorph Lucretia [None Occasional /HPF Seen /HPF] *NA* (07/10/2013 23:36:00 [facility]) HEMATOLOGY Most recent to 1 2 oldest [Reference Range]: WBC [3.7-10.4 K/CMM] 13.4 K/CMM *HI* (07/10/2013 21:56:00 [facility]) RBC [4.20-5.40 3.27 M/CMM M/CMM] *LOW* (07/10/2013 21:56:00 [facility]) Hgb [12.0-16.0 g/dL] 11.2 g/dL *LOW* (07/10/2013 21:56:00 [facility]) Hct [36.0-48.0 %] 32.4 % *LOW* (07/10/2013 21:56:00 [facility]) MCV [81.0-99.0 fL] 99.0 fL (07/10/2013 21:56:00 [facility]) MCH [27.0-31.0 pg] 34.2 pg *HI* (07/10/2013 21:56:00 [facility]) MCHC [32.0-36.0 34.5 g/dL g/dL] (07/10/2013 21:56:00 [facility]) RDW [11.5-14.5 %] 12.6 % (07/10/2013 21:56:00 [facility]) Platelet [133-450 355 K/CMM K/CMM] (07/10/2013 21:56:00 [facility]) MPV [7.4-10.4 fL] 7.7 fL (07/10/2013 21:56:00 [facility]) Segs [45.0-75.0 %] 84.5 % *HI* (07/10/2013 21:56:00 [facility]) Lymphocytes 10.3 % [20.0-40.0 %] *LOW* (07/10/2013 21:56:00 [facility]) Monocytes [2.0-12.0 4.3 % %] (07/10/2013 21:56:00 [facility]) Eosinophils [0.0-4.0 0.8 % %] (07/10/2013 21:56:00 [facility]) Basophils [0.0-1.0 0.1 % %] (07/10/2013 21:56:00 [facility]) Segs-Bands # 11.3 K/CMM [1.5-8.1 K/CMM] *HI* (07/10/2013 [facility]:56[facility] Lymphocytes # 1.4 K/CMM [1.0-5.5 K/CMM] (07/10/2013 21:56:00 [facility]) Monocytes # [0.0-0.8 0.6 K/CMM K/CMM] (07/10/2013 [facility]:56[facility] Eosinophils # 0.1 K/CMM [0.0-0.5 K/CMM] (07/10/2013 21:56:00 [facility]) Basophils # [0.0-0.2 0.0 K/CMM K/CMM] (07/10/2013 21:56:00 [facility]) RBC Morph Normal (07/10/2013 21:56:00 [facility]) Plt Morph Normal (07/10/2013 [facility]:56:[facility] PT [12.0-14.7 15.0 seconds seconds] *HI* (07/10/2013 21:56:00 [facility]) INR [0.85-1.17] 1.19 5 *HI* (07/10/2013 [facility]:56[facility] PTT [22.9-35.8 39.6 seconds 6 seconds] *HI* (07/10/2013 21:56:00 [facility]) 5Interpretive Data: RECOMMENDED RANGES FOR PROTIME INR: 2.0-3.0 for most medical and surgical thromboembolic states. 2.5-3.5 for artificial heart valves and recurrent embolism. INR SHOULD BE USED ONLY FOR PATIENTS ON STABLE ANTICOAGULANT THERAPY. 6Interpretive Data: Heparin Therapeutic Range: 57 - 92 Seconds Medications Administered During Your Visit No data available for this section Immunizations Vaccine Date Refusal Reason influenza virus vaccine, inactivated1 07/11/2013 pneumococcal 23-valent vaccine2 07/11/2013 1Result Comment: states she will talk to her PCP about it 2Result Comment: states she will talk to her PCP about it Procedures Procedure Type Body Site Date of Procedure Related Diagnosis Cholecystectomy Cystoscopy
--- OUTSIDE RECORDS SUMMARY | 2018-02-06 13:21 | XMS REPORT | Summary of Care ---
Author Author [facility] Organization [facility] Address Unknown Phone Unavailable Encounter LINDA Barboza(LUCÍA) [id number] Date(s): 06/21/17 - 06/21/17 [facility] [address] [place] [address]- [phone] Encounter Diagnosis Traumatic subarachnoid hemorrhage without loss of consciousness, initial encount er (Final) - 07/05/17 Laceration without foreign body of other part of head, initial encounter (Final) - Cervicalgia (Final) - Pain in left shoulder (Final) - Pain in right shoulder (Final) - Pain in right elbow (Final) - Pain in left ankle and joints of left foot (Final) - Pain in right ankle and joints of right foot (Final) - Fall on same level, unspecified, initial encounter (Final) - Alzheimer's disease, unspecified (Final) - Dementia in other diseases classified elsewhere without behavioral disturbance (Final) - Personal history of transient ischemic attack (TIA), 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) - Encounter for immunization (Final) - Discharge Disposition: Acute Care Attending Physician: Barak Ho MD Vital Signs 1 2 3 Most recent to oldest [Reference Range]: 154.94 cm (06/21/17 2:45 PM) Height 99 DegF (06/21/17 2:45 PM) Temperature Oral [96.4-99.1 DegF] 157/65 mmHg *HI* (06/21/17 7:19 PM) 148/68 mmHg *HI* (06/21/17 6:19 PM) 152/72 mmHg *HI* (06/21/17 5:38 PM) Blood Pressure [90-140/60-90 mmHg] 18 BRMIN (06/21/17 7:19 PM) 20 BRMIN (06/21/17 6:19 PM) 20 BRMIN (06/21/17 5:38 PM) Respiratory Rate [14-20 BRMIN] 90 bpm (06/21/17 7:19 PM) 95 bpm (06/21/17 6:19 PM) 103 bpm *HI* (06/21/17 5:38 PM) Peripheral Pulse Rate [60-100 bpm] 45.455 kg (06/21/17 2:45 PM) Weight 18.93 m2 (06/21/17 2:45 PM) Body Mass Index Problem List Condition Effective Dates Status Health Status Informant Moderate Active Chronic ; protein-calorie malnutrition(Confirm ed) Allergies, Adverse Reactions, Alerts Substance Reaction Severity Status penicillins Active Macrobid1 Active 1Rash on body and face. Medications fentaNYL 25 microgram, Route: IVP, ONCE, Dosing Weight 45.455, kg, Priority: STAT, Start date: 06/21/17 18:34:00 FORKLIFT OPERATOR, Stop date: 06/21/17 18:34:00 FORKLIFT OPERATOR Start Date: 06/21/17 Stop Date: 06/21/17 Status: Completed fentaNYL 25 microgram, 0.5 mL, Route: IVP, Drug form: INJ, ONCE, Dosing Weight 45.455, kg , Priority: STAT, Start date: 06/21/17 15:17:00 FORKLIFT OPERATOR, Stop date: 06/21/17 15:17:0 0 FORKLIFT OPERATOR Notes: (Same as: Sublimaze) Preservative free. Start Date: 06/21/17 Stop Date: 06/21/17 Status: Completed Keppra + Sodium Chloride 0.9% IV 100 mL 1,000 mg, Route: IV, ONCE, Dosing Weight 45.455, kg, Start date: 06/21/17 17:11: 00 FORKLIFT OPERATOR, Stop date: 06/21/17 17:11:00 FORKLIFT OPERATOR Notes: Same as KeppraMix with 100 mL NS, LR or D5W MEDICATION WASTE Prod uct Size: 500 mgProduct Wasted: ___ mg Start Date: 06/21/17 Stop Date: 06/21/17 Status: Completed lidocaine 1 %, Route: SUB-Q, Drug form: INJ, ONCE, Dosing Weight 45.455, kg, Start date: 0 06/21/17 16:47:00 FORKLIFT OPERATOR, Stop date: 06/21/17 16:47:00 FORKLIFT OPERATOR Notes: (Same as: Xylocaine) Start Date: 06/21/17 Stop Date: 06/21/17 Status: Completed NS (Bolus) IV 500 mL, 500 ml/hr, Infuse Over: 1 hr, Route: IV, 500, Drug form: INJ, ONCE, Prio rity: STAT, Dosing Weight 45.455 kg, Start date: 06/21/17 15:17:00 FORKLIFT OPERATOR, Stop sandi e: 06/21/17 15:17:00 FORKLIFT OPERATOR Start Date: 06/21/17 Stop Date: 06/21/17 Status: Completed Zofran 4 mg, 2 mL, Route: IVP, Drug form: INJ, ONCE, Dosing Weight 45.455, kg, Priority : STAT, Start date: 06/21/17 15:17:00 FORKLIFT OPERATOR, Stop date: 06/21/17 15:17:00 FORKLIFT OPERATOR Notes: (Same as: Zofran) MEDICATION WASTE Product Size: 4 mgProduct Was karla: ___ mg Start Date: 06/21/17 Stop Date: 06/21/17 Status: Completed Results ELECTROLYTES Most recent to 1 oldest [Reference Range]: Sodium Lvl [135-145 131 mEq/L mEq/L] *LOW* (06/21/17 3:43 PM) Potassium Lvl 4.5 mEq/L [3.5-5.1 mEq/L] (06/21/17 3:43 PM) Chloride Lvl [95-109 96 mEq/L mEq/L] (06/21/17 3:43 PM) CO2 [24-32 mEq/L] 27 mEq/L (06/21/17 3:43 PM) AGAP [10.0-20.0 12.5 mEq/L mEq/L] (06/21/17 3:43 PM) CHEM PANEL Most recent to 1 oldest [Reference Range]: Creatinine Lvl 0.45 mg/dL [0.50-1.40 mg/dL] *LOW* (06/21/17 3:43 PM) eGFR 89 mL/min/1.73m2 1 *NA* (06/21/17 3:43 PM) BUN [7-22 mg/dL] 13 mg/dL (06/21/17 3:43 PM) B/C Ratio [6-25] 29 *HI* (06/21/17 3:43 PM) Glucose Lvl [70-99 100 mg/dL mg/dL] *HI* (06/21/17 3:43 PM) Total Protein 7.5 g/dL [6.4-8.4 g/dL] (06/21/17 3:43 PM) Albumin Lvl [3.5-5.0 3.4 g/dL g/dL] *LOW* (06/21/17 3:43 PM) Globulin [2.7-4.2 4.1 g/dL g/dL] (06/21/17 3:43 PM) A/G Ratio [0.7-1.6] 0.8 (06/21/17 3:43 PM) Calcium Lvl 8.4 mg/dL [8.5-10.5 mg/dL] *LOW* (06/21/17 3:43 PM) ALT [0-65 unit/L] 13 unit/L (06/21/17 3:43 PM) AST [0-37 unit/L] 26 unit/L (06/21/17 3:43 PM) Alk Phos [39-136 70 unit/L unit/L] (06/21/17 3:43 PM) Bili Total [0.2-1.3 1.0 mg/dL mg/dL] (06/21/17 3:43 PM) Lactic Acid Lvl 0.5 mMol/L [0.5-2.2 mMol/L] (06/21/17 3:43 PM) 1Result Comment: The eGFR is calculated using [...] be mul tiplied by the estimated BMI. CARDIAC ENZYMES Most recent to 1 oldest [Reference Range]: Troponin-I <0.02 ng/mL [0.00-0.40 ng/mL] (06/21/17 3:43 PM) BNP [<=100 pg/mL] 41 pg/mL (06/21/17 3:43 PM) HEMATOLOGY Most recent to 1 oldest [Reference Range]: WBC [3.7-10.4 K/CMM] 7.6 K/CMM (06/21/17 3:43 PM) RBC [4.20-5.40 3.58 M/CMM M/CMM] *LOW* (06/21/17 3:43 PM) Hgb [12.0-16.0 g/dL] 12.1 g/dL (06/21/17 3:43 PM) Hct [36.0-48.0 %] 34.4 % *LOW* (06/21/17 3:43 PM) MCV [80.0-98.0 fL] 96.1 fL (06/21/17 3:43 PM) MCH [27.0-31.0 pg] 33.7 pg *HI* (06/21/17 3:43 PM) MCHC [32.0-36.0 35.1 g/dL g/dL] (06/21/17 3:43 PM) RDW [11.5-14.5 %] 12.8 % (06/21/17 3:43 PM) MPV [7.4-10.4 fL] 8.4 fL (06/21/17 3:43 PM) Platelet [133-450 251 K/CMM K/CMM] (06/21/17 3:43 PM) Segs [45.0-75.0 %] 75.0 % (06/21/17 3:43 PM) Lymphocytes 16.7 % [20.0-40.0 %] *LOW* (06/21/17 3:43 PM) Monocytes [2.0-12.0 7.1 % %] (06/21/17 3:43 PM) Eosinophils [0.0-4.0 0.3 % %] (06/21/17 3:43 PM) Basophils [0.0-1.0 0.9 % %] (06/21/17 3:43 PM) Segs-Bands # 5.7 K/CMM [1.5-8.1 K/CMM] (06/21/17 3:43 PM) Lymphocytes # 1.3 K/CMM [1.0-5.5 K/CMM] (06/21/17 3:43 PM) Monocytes # [0.0-0.8 0.5 K/CMM K/CMM] (06/21/17 3:43 PM) Basophils # [0.0-0.2 0.1 K/CMM K/CMM] (06/21/17 3:43 PM) PT [12.0-14.7 13.0 seconds seconds] (06/21/17 5:41 PM) INR [0.85-1.17] 0.98 (06/21/17 5:41 PM) PTT [22.9-35.8 33.0 seconds seconds] (06/21/17 5:41 PM) Immunizations Given and Recorded Vaccine Date Status Refusal Reason diphtheria/pertussis, acel/tetanus adult 06/21/17 Given pneumococcal 13-valent vaccine 06/16/17 Given Hx influenza vaccine-unspecified 05/25/17 Given Hx pneumococcal vaccine 05/25/13 Given Not Given Vaccine Date Status Refusal Reason influenza virus vaccine, inactivated1 07/11/13 Not Given Patient Refuses pneumococcal 23-valent vaccine2 07/11/13 Not Given Patient Refuses 1Result Comment: states she will talk to her PCP about it 2Result Comment: states she will talk to her PCP about it Procedures Procedure Date Related Diagnosis Body Site Status Cholecystectomy Completed Cystoscopy Completed Social History Social History Type Response Substance Abuse Use: None. Alcohol Never Smoking Status Never smoker; Type: Cigarettes; Previous treatment: None; Exposure to Tobacco Smoke None; Cigarette Smoking Last 365 Days No; Reg Smoking Cessation Counseling No entered on: 06/21/17 Assessment and Plan No data available for this section
--- OUTSIDE RECORDS SUMMARY | 2018-02-06 13:21 | XMS REPORT ---
Author Organization Unknown Address [address] [place] [address] Phone [phone] Care Team Providers Care Eeler Name Role Phone DAVID CLINTON MD 142 [phone] RORY SCHWAB MD 129 [phone] STEVE HANCOCK MD 111 [phone] CLEVELAND GARRISON MD 82 [phone] Allergies Code Code System Name Reaction Severity Status Onset 967127 RxNorm Macrobid Dizziness Severe Active Penicillins Active 8691 RxNorm Primidone Dizziness Active 22595 RxNorm Vancomycin Anaphylaxis Active Medications Name Status Start Date Stop Date alendronate 70 mg tablet TAKE 1 TABLET EVERY WEEK Active Not available Aricept 5 mg tablet Take 1 tablet every day by oral route for 90 days. Completed 01/23/2017 aspirin 81 mg capsule,delayed release Take 1 capsule every day by oral route for 90 days. Active Not available atorvastatin 20 mg tablet Take 1 tablet every day by oral route. Active Not available Calcium 500 + D take 1 twice a day Completed 06/01/2017 Celexa 10 mg tablet Take 1 tablet every day by oral route as directed for 30 days. Completed 07/28/2017 ciprofloxacin 250 mg tablet Active Not available ciprofloxacin 500 mg tablet Completed 06/01/2017 donepezil 10 mg tablet Completed 07/28/2017 dorzolamide 22.3 mg-timolol 6.8 mg/mL eye drops Completed 06/01/2017 dorzolamide-timolol (PF) 2 %-0.5 % eye drops in a dropperette INSTILL 1 DROP INTO AFFECTED EYE(S) BY OPHTHALMIC ROUTE 2 TIMES PER DAY Active Not available escitalopram 10 mg tablet Take 1 tablet every day by oral route as directed for 90 days. Active Not available gentamicin 40 mg/mL injection solution Completed 07/28/2017 latanoprost 0.005 % eye drops Active Not available Macrobid 100 mg capsule Take 1 capsule every 12 hours by oral route as directed for 10 days. Active Not available meclizine 12.5 mg tablet Completed 06/01/2017 meclizine 25 mg tablet Take 1 tablet 3 times a day by oral route as needed. Active Not available omeprazole 40 mg capsule,delayed release Active Not available prednisone 10 mg tablet Completed 06/01/2017 primidone 50 mg tablet Completed 06/01/2017 quetiapine 25 mg tablet Take 1 tablet every day by oral route at bedtime. Active Not available rosuvastatin 10 mg tablet Completed 07/28/2017 rosuvastatin 5 mg tablet Completed 07/28/2017 trimethoprim 100 mg tablet Completed 07/28/2017 Problems Name Status Onset Date Source Mixed Hyperlipidemia Active 11/09/2016 Dementia Active 11/09/2016 Glaucoma Active 11/09/2016 Chronic Kidney Disease Stage 2 Active 11/09/2016 Cystocele Active 11/09/2016 Osteoarthritis Active 11/09/2016 Osteoporosis Active 11/09/2016 Tremor Active 11/09/2016 Gastroesophageal Reflux Disease Active 01/23/2017 Procedures Date Name Performed by Cataract Surgery Complex Information not available Cholecystectomy Information not available Lab Results Date Name Specimen Result Interpretation Description Value Range Status Address 06/01/2017 Culture, Urine ABNORMAL Culture, Urine, Routine see note Final [facility] Laboratory: [address] [facility] [address], [place] 06/01/2017 Urinalysis, Dipstick Color Color yellow [facility]: [address], [place] Color Appearance clear [facility]: [address] [facility], [place] Color Glucose negative [facility]: [address] [facility], [place] Color Bilirubin negative [facility]: [address], [place] Color Ketones negative [facility]: [address], [place] Color Specific [place] 1.020 [facility]: [address], [place] Color Blood trace [facility]: [address], [place] Color PH 7.0 [facility]: [address], [place] Color Protein negative [facility]: [address], [place] Color Urobilinogen 0.2 [facility]: [address], [place] Color Nitrites negative [facility]: [address], [place] Color Leukocytes small [facility]: [address] [facility] 11/09/2016 CBC W/ Auto Diff Wbc 5.60 x10*3/L 3.98-10.04 x10*3/L Final [facility]: [address] [facility] Low Rbc 3.49 10*12/L 3.93-5.22 10*12/L Final [facility]: [address] [facility] Hemoglobin 11.90 g/dL 11.20-15.70 g/dL Final [facility] Laboratory: [address] [facility] Hematocrit 36.4 % 34.1-44.9 % Final [facility]: [address] [facility] High Mcv 104.3 fL 80.0-100.0 fL Final [facility] Laboratory: [address] [facility] High Mch 34.1 pg 25.6-32.2 pg Final [facility] Laboratory: [address] [facility] Mchc 32.7 g/dL 32.2-35.5 g/dL Final [facility] Laboratory: [address] [facility] RDW-SD 45.9 fL 36.4-46.3 fL Final [facility] Laboratory: [address] [facility] Platelet Count 290.0 k/uL 182.0-369.0 k/uL Final [facility] Laboratory: [address] [facility] Mpv 10.9 fL 7.5-11.5 fL Final [facility]: [address] [facility] Neut% 60.1 % 34.0-71.1 % Final [facility] Laboratory: [address] [facility] Lymph% 31.3 % 19.3-51.7 % Final [facility]: [address] [facility] Mon% 7.1 % 4.7-12.5 % Final [facility] Laboratory: [address] [facility] Eos% 1.1 % 0.7-5.8 % Final [facility]: [address] [facility] Baso% 0.4 % 0.1-1.2 % Final [facility] Laboratory: [address] [facility], [place] Neut# 3.4 x10*3/L 1.6-6.1 x10*3/L Final [facility] Laboratory: [address], [place] Lymph# 1.8 x10*3/L 1.2-3.7 x10*3/L Final [facility] Laboratory: [address] [place] [address], [place] Mon# 0.4 x10*3/L 0.2-0.9 x10*3/L Final [facility] Laboratory: [address] [place] [address], [place] Eos# 0.06 x10*3/L 0.04-0.36 x10*3/L Final [facility] Laboratory: [address] [place] [address], [place] Baso# 0.02 x10*3/L 0.01-0.08 x10*3/L Final [facility] Laboratory: [address] [facility], [place] 11/09/2016 Culture, Urine ABNORMAL Culture, Urine, Routine Final [facility] Laboratory: [address] [place] [address], [place] Urinalysis, Dipstick Color Glucose negative [facility]: [address], [place] Color Bilirubin negative [facility]: [address] [facility], [place] Color Ketones negative [facility]: [address], [place] Color Specific [place] 1.020 [facility]: [address], [place] Color Blood moderate [facility]: [address], [place] Color PH 6.5 [facility]: [address], [place] Color Protein trace [facility]: [address], [place] Color Urobilinogen 1 [facility]: [address], [place] Color Nitrites positive [facility]: [address], [place] Color Leukocytes small [facility]: [address], [place] Urinalysis, Dipstick Color Color yellow [facility] [address] [facility] [place] Color Appearance clear [facility]: [address] [place] Color Glucose negative [facility]: [address] [facility] [place] Color Bilirubin negative [facility]: [address] [place] [address], [place] Color Blood small [facility]: [address] [address], [place] Color Leukocytes large [facility]: [address] [address], [place] Color Nitrites negative [facility]: [address] [address], [place] Color Urobilinogen 0.2 [facility]: [address] [facility] [address], [place] Color Protein negative [facility]: [address] [address], [place] Color PH 7.0 [facility]: [address] [place] [address], [place] Color Specific [place] 1.015 [facility]: [address] [address], [place] Color Ketones negative [facility]: [address] [address], [place] Past Encounters 07/28/2017 Concussion Injury of Brain; Seizure; Acute Urinary Tract Infection; Major Depressive Disorder; Insomnia; Deficiency of Macronutrients; Body Mass Index Less than 20 Contreras Harris MD: [facility] [place] [address], Ph. 06/01/2017 Major Depressive Disorder; Chest Pain; Coronary Arteriosclerosis; Gastroesophageal Reflux Disease; Recurrent Urinary Tract Infection; At Risk for Falls; Depression Screening; Body Mass Index Less than 20; Influenza Vaccination Contreras Harris MD: [facility] [place] [address], Ph. 11/09/2016 Mixed Hyperlipidemia; Chronic Kidney Disease Stage 2; Fever; Non-suppurative Otitis Media; Abnormal Urinalysis; Vaginal Pessary in Situ; Dementia; Vitamin B12 Deficiency (Non Anemic); Osteoporosis; Upper Respiratory Infection Omero Malagon Jr, MD: [address] [address], [place]. Social History Smoking Status Never Smoker Vaccine List Vaccine Type influenza, high dose seasonal 06/01/20170.5 mL influenza, unspecified formulation 03/07/2016 Pneumococcal Conjugate, unspecified formulation 03/13/2003 Plan of Care Reminders Provider Appointments None recorded. Lab None recorded. Referral None recorded. Procedures None recorded. Surgeries None recorded. Imaging None recorded. Vitals 07/28/2017 04:15PM Est Patient Height Weight BMI Blood Pressure 5 ft 1 in 97 lbs 18.3 kg/m2 102/60 mm[Hg] 06/01/2017 11:00AM Est Patient Height Weight BMI Blood Pressure 5 ft 1 in 101 lbs 19.1 kg/m2 110/52 mm[Hg] 11/09/2016 10:15AM Est Patient Height Weight BMI Blood Pressure 5 ft 1 in 107 lbs 20.2 kg/m2 136/64 mm[Hg]
--- OUTSIDE RECORDS SUMMARY | 2018-02-06 13:21 | XMS REPORT | Summary of Care ---
Author Author [facility] Organization [facility] Address Unknown Phone Unavailable Encounter LINDA Barboza(LUCÍA) [id number] Date(s): 06/21/17 - 06/28/17 [facility] [address] [employer] provided by [facility] [place] [address]- Encounter Diagnosis Traumatic subarachnoid hemorrhage with loss of consciousness of 30 minutes or le ss, initial encounter (Final) - 07/06/17 Other specified sepsis (Final) - Other frontotemporal dementia (Final) - Dementia in other diseases classified elsewhere without behavioral disturbance (Final) - Severe sepsis without septic shock (Final) - Urinary tract infection, site not specified (Final) - Hypo-osmolality and hyponatremia (Final) - Encounter for immunization (Final) - Do not resuscitate (Final) - Hyperlipidemia, unspecified (Final) - Coma scale, best verbal response, confused conversation, at arrival to emergency department (Final) - Essential (primary) hypertension (Final) - Fall on same level, unspecified, initial encounter (Final) - Allergy status to penicillin (Final) - Unspecified glaucoma (Final) - Hypokalemia (Final) - Coma scale, best motor response, obeys commands, at arrival to emergency departm ent (Final) - Coma scale, eyes open, spontaneous, at arrival to emergency department (Final) - Discharge Disposition: Intermediate Facility Attending Physician: Shaggy Gerard MD Admitting Physician: Otoniel Figueroa MD Referring Physician: Jerry Morejon MD Vital Signs 1 2 3 Most recent to oldest [Reference Range]: 152.4 cm (06/22/17 1:25 AM) Height 98.0 DegF (06/28/17 8:20 AM) 98.5 DegF (06/28/17 4:00 AM) 98.3 DegF (06/28/17 12:00 AM) Temperature Oral [96.4-99.1 DegF] 120/76 mmHg (06/28/17 8:20 AM) 122/60 mmHg (06/28/17 4:00 AM) 118/65 mmHg (06/28/17 12:00 AM) Blood Pressure [90-140/60-90 mmHg] 18 BRMIN (06/28/17 8:20 AM) 18 BRMIN (06/28/17 4:00 AM) 18 BRMIN (06/28/17 12:00 AM) Respiratory Rate [14-20 BRMIN] 73 bpm (06/28/17 8:20 AM) 80 bpm (06/28/17 4:00 AM) 93 bpm (06/28/17 12:00 AM) Peripheral Pulse Rate [60-100 bpm] 46.364 kg (06/26/17 1:39 PM) 45.909 kg (06/22/17 1:25 AM) 72.727 kg (06/21/17 8:16 PM) Weight 19.77 m2 (06/22/17 1:25 AM) Body Mass Index Problem List Condition Effective Dates Status Health Status Informant Moderate Active Chronic ; protein-calorie malnutrition(Confirm ed) Allergies, Adverse Reactions, Alerts Substance Reaction Severity Status penicillins Active Macrobid1 Active 1Rash on body and face. Medications Benadryl 12.5 mg, 5 mL, Route: PO, Drug form: LIQ, ONCE, Dosing Weight 45.909, kg, Start date: 06/22/17 10:30:00 POLYSOMNOGRAPHY TECHNICIAN, Stop date: 06/22/17 10:30:00 POLYSOMNOGRAPHY TECHNICIAN Notes: (Same as: Benadryl) Start Date: 06/22/17 Stop Date: 06/22/17 Status: Completed bisacodyl 10 mg, 1 supp, Route: IN, Drug form: SUPP, Daily, Dosing Weight 72.727, kg, PRN Constipation, Start date: 06/21/17 21:38:00 POLYSOMNOGRAPHY TECHNICIAN, Duration: 30 day, Stop date: 21:37:00 CDT Notes: (Same As: Dulcolax, Bisco-Lax) Start Date: 06/21/17 Stop Date: 06/28/17 Status: Discontinued cefdinir 300 mg, 1 cap, Route: PO, Drug form: CAP, [id number], Start date: 06/22/17 18:00:00 POLYSOMNOGRAPHY TECHNICIAN, Duration: 7 day, Stop date: 06/29/17 6:00:00 POLYSOMNOGRAPHY TECHNICIAN Notes: (Same As: Omnicef) Start Date: 06/22/17 Stop Date: 06/23/17 Status: Discontinued cefepime 1 gm, Route: IVPB, Drug form: INJ, Q8Hnow, Dosing Weight 45.909, kg, (CrCl 30 - 49 ml/min), Start date: 06/23/17 10:00:00 POLYSOMNOGRAPHY TECHNICIAN, Duration: 7 day, Stop date: 06/30 2:00:00 POLYSOMNOGRAPHY TECHNICIAN, ABX Indication: Urinary Tract Infection Notes: (Same As: Maxipime) MEDICATION WASTE Product Size: 1000 mgProduc t Wasted: _0__ mg Start Date: 06/23/17 Stop Date: 06/25/17 Status: Discontinued Ceftin 500 mg oral tablet 500 mg=1 tab, PO, BID, X 1 day, # 2 tab, 0 Refill(s), Pharmacy: [facility]/pharmacy #[id number] Start Date: 06/28/17 Stop Date: 06/29/17 Status: Completed cefTRIAXone 1 gm, Route: IVPB, Drug form: PDR/INJ, [id number], Dosing Weight 45.909, kg, Start date: 06/25/17 17:00:00 POLYSOMNOGRAPHY TECHNICIAN, Duration: 4 day, Stop date: 06/28/17 17:00:00 POLYSOMNOGRAPHY TECHNICIAN, ABX Indication: Urinary Tract Infection Notes: (Same As: Rocephin).Use with 100 mL NS and infuse over 30 min MEDICA TION WASTE Product Size: 1000 mgProduct Wasted: ___ mg Start Date: 06/25/17 Stop Date: 06/28/17 Status: Discontinued Crestor 10 mg, 1 tab, Route: PO, Drug form: TAB, Bedtime, Dosing Weight 72.727, kg, Star t date: 06/22/17 21:00:00 POLYSOMNOGRAPHY TECHNICIAN, Duration: 30 day, Stop date: 07/21/17 21:00:00 CD T Notes: (Same As: Crestor) Start Date: 06/22/17 Stop Date: 06/28/17 Status: Discontinued Dextrose 50% Syringe 12.5 gm, 25 mL, Route: IVP, Drug Form: INJ, Dosing Weight 45.909, kg, PRN, PRN B lood Glucose Results, Start date: 06/23/17 8:50:00 POLYSOMNOGRAPHY TECHNICIAN, Duration: 30 day, Stop d ate: 07/23/17 9:49:00 CDT Start Date: 06/23/17 Stop Date: 06/28/17 Status: Discontinued Dextrose 50% Syringe 25 gm, 50 mL, Route: IVP, Drug Form: INJ, Dosing Weight 45.909, kg, PRN, PRN Blo od Glucose Results, Start date: 06/23/17 8:50:00 POLYSOMNOGRAPHY TECHNICIAN, Duration: 30 day, Stop sandi e: 07/23/17 9:49:00 CDT Start Date: 06/23/17 Stop Date: 06/28/17 Status: Discontinued docusate sodium 100 mg oral capsule 100 mg, 10 mL, Route: PO, Drug form: LIQ, Q12H, Dosing Weight 72.727, kg, Start date: 06/22/17 9:00:00 POLYSOMNOGRAPHY TECHNICIAN, Stop date: 07/21/17 21:00:00 CDT Notes: (Same as: Colace) Start Date: 06/22/17 Stop Date: 06/28/17 Status: Discontinued famotidine 20 mg, 2 mL, Route: IVP, Drug form: INJ, Q12H, Dosing Weight 72.727, kg, Start d ate: 06/22/17 9:00:00 POLYSOMNOGRAPHY TECHNICIAN, Duration: 30 day, Stop date: 07/21/17 21:00:00 CDT Start Date: 06/22/17 Stop Date: 06/22/17 Status: Canceled Fosamax 10 mg, 1 tab, Route: PO, Drug form: TAB, [id number], Start date: 06/23/17 6:30:00 CS T, Duration: 30 day, Stop date: 07/22/17 6:30:00 CDT Notes: Non-Formulary DrugGive 30 min before breakfast w/6oz water. Sit upright f or 30 min after dose."Do Not Crush" (Same as: Fosamax) Start Date: 06/23/17 Stop Date: 06/28/17 Status: Discontinued Fosamax 70 mg, Route: PO, Drug form: TAB, Q7D, Dosing Weight 45.909, kg, Start date: 05/11 16:00:00 POLYSOMNOGRAPHY TECHNICIAN, Duration: 30 day, Stop date: 07/20/17 9:00:00 CDT Start Date: 06/22/17 Stop Date: 06/22/17 Status: Deleted Fosamax 70 mg oral tablet 70 mg=1 tab, PO, Q7D, # 12 tab, 0 Refill(s) Start Date: 06/22/17 Status: Ordered glucagon 1 mg, Route: IM, Drug form: PDR/INJ, PRN, Dosing Weight 45.909, kg, PRN Blood Gl ucose Results, Start date: 06/23/17 8:50:00 POLYSOMNOGRAPHY TECHNICIAN, Duration: 30 day, Stop date: 9:49:00 CDT Start Date: 06/23/17 Stop Date: 06/28/17 Status: Discontinued heparin 5000 units/mL injectable solution 5,000 unit, 1 mL, Route: SUB-Q, Drug form: INJ, Q8H, Dosing Weight 45.909, kg, S tart date: 06/22/17 23:55:00 POLYSOMNOGRAPHY TECHNICIAN, Duration: 30 day, Stop date: 07/22/17 16:00:00 CDT Notes: porcine heparin Start Date: 06/22/17 Stop Date: 06/28/17 Status: Discontinued insulin lispro 8 unit, 0.08 mL, Route: SUB-Q, Drug form: SOLN, TID-Before Meals, Dosing Weight 45.909, kg, PRN Blood Glucose Results, Start date: 06/23/17 8:50:00 POLYSOMNOGRAPHY TECHNICIAN, Duratio n: 30 day, Stop date: 07/23/17 8:49:00 CDT Notes: (Same as: Humalog ) Roll in palms of hands gently; Do not shake `vigorou sly. "Single Patient Use Only " WASTE: F/P - Black; E - [facility] [address] [address] able for 28 days at room temperature.Expires in days from Da te Start Date: 06/23/17 Stop Date: 06/28/17 Status: Discontinued insulin lispro 10 unit, 0.1 mL, Route: SUB-Q, Drug form: SOLN, TID-Before Meals, Dosing Weight 45.909, kg, PRN Blood Glucose Results, Start date: 06/23/17 8:50:00 POLYSOMNOGRAPHY TECHNICIAN, Duratio n: 30 day, Stop date: 07/23/17 8:49:00 CDT Notes: (Same as: Humalog ) Roll in palms of hands gently; Do not shake `vigorou sly. "Single Patient Use Only " WASTE: F/P - Black; E - [facility] [address] able for 28 days at room temperature.Expires in days from Da te Start Date: 06/23/17 Stop Date: 06/28/17 Status: Discontinued insulin lispro 2 unit, 0.02 mL, Route: SUB-Q, Drug form: SOLN, TID-Before Meals, Dosing Weight 45.909, kg, PRN Blood Glucose Results, Start date: 06/23/17 8:50:00 POLYSOMNOGRAPHY TECHNICIAN, Duratio n: 30 day, Stop date: 07/23/17 8:49:00 CDT Notes: (Same as: Humalog ) Roll in palms of hands gently; Do not shake `vigorou sly. "Single Patient Use Only " WASTE: F/P - Black; E - [facility] [address] able for 28 days at room temperature.Expires in days from Da te Start Date: 06/23/17 Stop Date: 06/28/17 Status: Discontinued insulin lispro 4 unit, 0.04 mL, Route: SUB-Q, Drug form: SOLN, TID-Before Meals, Dosing Weight 45.909, kg, PRN Blood Glucose Results, Start date: 06/23/17 8:50:00 POLYSOMNOGRAPHY TECHNICIAN, Duratio n: 30 day, Stop date: 07/23/17 8:49:00 CDT Notes: (Same as: Humalog ) Roll in palms of hands gently; Do not shake `vigorou sly. "Single Patient Use Only " WASTE: F/P - Black; E - [facility] [address] able for 28 days at room temperature.Expires in days from Da te Start Date: 06/23/17 Stop Date: 06/28/17 Status: Discontinued insulin lispro 6 unit, 0.06 mL, Route: SUB-Q, Drug form: SOLN, TID-Before Meals, Dosing Weight 45.909, kg, PRN Blood Glucose Results, Start date: 06/23/17 8:50:00 POLYSOMNOGRAPHY TECHNICIAN, Duratio n: 30 day, Stop date: 07/23/17 8:49:00 CDT Notes: (Same as: Humalog ) Roll in palms of hands gently; Do not shake `vigorou sly. "Single Patient Use Only " WASTE: F/P - Black; E - [facility] [address] able for 28 days at room temperature.Expires in days from Da te Start Date: 06/23/17 Stop Date: 06/28/17 Status: Discontinued Insulin regular 10 unit, 0.1 mL, Route: SUB-Q, Drug form: SOLN, Sliding Scale, Dosing Weight 72. 727, kg, PRN Blood Glucose Results, Start date: 06/21/17 21:38:00 POLYSOMNOGRAPHY TECHNICIAN, Duration: 30 day, Stop date: 07/21/17 22:37:00 CDT Notes: (Same as: Humulin R) Roll in palms of hands gently; Do not shake vigorou sly. "single patient use only"(Restricted to patients requiring a dose > 60 units)WASTE: F/P - Black; E - Municipal Trash Bin Stable for 28 days at room temperatureExpires in days from Date Start Date: 06/21/17 Stop Date: 06/23/17 Status: Discontinued Insulin regular 8 unit, 0.08 mL, Route: SUB-Q, Drug form: SOLN, Sliding Scale, Dosing Weight 72. 727, kg, PRN Blood Glucose Results, Start date: 06/21/17 21:38:00 POLYSOMNOGRAPHY TECHNICIAN, Duration: 30 day, Stop date: 07/21/17 22:37:00 CDT Notes: (Same as: Humulin R) Roll in palms of hands gently; Do not shake vigorou sly. "single patient use only"(Restricted to patients requiring a dose > 60 units)WASTE: F/P - Black; E - Municipal Trash Bin Stable for 28 days at room temperatureExpires in days from Date Start Date: 06/21/17 Stop Date: 06/23/17 Status: Discontinued Insulin regular 6 unit, 0.06 mL, Route: SUB-Q, Drug form: SOLN, Sliding Scale, Dosing Weight 72. 727, kg, PRN Blood Glucose Results, Start date: 06/21/17 21:38:00 POLYSOMNOGRAPHY TECHNICIAN, Duration: 30 day, Stop date: 07/21/17 22:37:00 CDT Notes: (Same as: Humulin R) Roll in palms of hands gently; Do not shake vigorou sly. "single patient use only"(Restricted to patients requiring a dose > 60 units)WASTE: F/P - Black; E - Municipal Trash Bin Stable for 28 days at room temperatureExpires in days from Date Start Date: 06/21/17 Stop Date: 06/23/17 Status: Discontinued Insulin regular 2 unit, 0.02 mL, Route: SUB-Q, Drug form: SOLN, Sliding Scale, Dosing Weight 72. 727, kg, PRN Blood Glucose Results, Start date: 06/21/17 21:38:00 POLYSOMNOGRAPHY TECHNICIAN, Duration: 30 day, Stop date: 07/21/17 22:37:00 CDT Notes: (Same as: Humulin R) Roll in palms of hands gently; Do not shake vigorou sly. "single patient use only"(Restricted to patients requiring a dose > 60 units)WASTE: F/P - Black; E - Municipal Trash Bin Stable for 28 days at room temperatureExpires in days from Date Start Date: 06/21/17 Stop Date: 06/23/17 Status: Discontinued Insulin regular 4 unit, 0.04 mL, Route: SUB-Q, Drug form: SOLN, Sliding Scale, Dosing Weight 72. 727, kg, PRN Blood Glucose Results, Start date: 06/21/17 21:38:00 POLYSOMNOGRAPHY TECHNICIAN, Duration: 30 day, Stop date: 07/21/17 22:37:00 CDT Notes: (Same as: Humulin R) Roll in palms of hands gently; Do not shake vigorou sly. "single patient use only"(Restricted to patients requiring a dose > 60 units)WASTE: F/P - Black; E - Municipal Trash Bin Stable for 28 days at room temperatureExpires in days from Date Start Date: 06/21/17 Stop Date: 06/23/17 Status: Discontinued Keppra 500 mg oral tablet 500 mg, 1 tab, Route: PO, Drug form: TAB, Q12H, Dosing Weight 72.727, kg, Start date: 06/22/17 9:00:00 POLYSOMNOGRAPHY TECHNICIAN, Duration: 30 day, Stop date: 07/21/17 21:00:00 CDT Start Date: 06/22/17 Stop Date: 06/26/17 Status: Discontinued labetalol 10 mg, 2 mL, Route: IVP, Drug form: INJ, Q15Min, Dosing Weight 72.727, kg, PRN H ypertension, Start date: 06/21/17 21:38:00 POLYSOMNOGRAPHY TECHNICIAN, Duration: 3 doses or times, Stop date: Limited # of times Start Date: 06/21/17 Stop Date: 06/28/17 Status: Discontinued latanoprost ophthalmic 1 drp, Route: BOTH EYES, Bedtime, Drug form: SOLN, Start date: 06/22/17 21:00:00 POLYSOMNOGRAPHY TECHNICIAN, Duration: 30 day, Stop date: 07/21/17 21:00:00 CDT Start Date: 06/22/17 Stop Date: 06/28/17 Status: Discontinued Levaquin 500 mg, Route: PO, Drug form: TAB, [id number], Dosing Weight 45.909, kg, Start date : 06/22/17 13:00:00 POLYSOMNOGRAPHY TECHNICIAN, Duration: 3 day, Stop date: 06/24/17 13:00:00 POLYSOMNOGRAPHY TECHNICIAN, ABX Indication: Urinary Tract Infection Start Date: 06/22/17 Stop Date: 06/22/17 Status: Deleted Lexapro 10 mg, 1 tab, Route: PO, Drug form: TAB, Daily, Dosing Weight 72.727, kg, Start date: 06/22/17 9:00:00 POLYSOMNOGRAPHY TECHNICIAN, Duration: 30 day, Stop date: 07/21/17 9:00:00 CDT Notes: (Same as: Lexapro) Start Date: 06/22/17 Stop Date: 06/28/17 Status: Discontinued Lyrica 100 mg, 1 cap, Route: PO, Drug form: CAP, Q12H, Dosing Weight 45.909, kg, Start date: 06/26/17 21:00:00 POLYSOMNOGRAPHY TECHNICIAN, Duration: 30 day, Stop date: 07/26/17 9:00:00 CDT Notes: (Same as: Lyrica) Start Date: 06/26/17 Stop Date: 06/28/17 Status: Discontinued Lyrica 75 mg, 1 cap, Route: PO, Drug form: CAP, Q12H, Dosing Weight 45.909, kg, Start d ate: 06/24/17 9:00:00 POLYSOMNOGRAPHY TECHNICIAN, Duration: 30 day, Stop date: 07/23/17 21:00:00 CDT Notes: (Same as: Lyrica) Start Date: 06/24/17 Stop Date: 06/26/17 Status: Discontinued Macrobid 100 mg, 1 cap, Route: PO, Drug form: CAP, [id number], Dosing Weight 72.727, kg, Sta rt date: 06/22/17 9:00:00 POLYSOMNOGRAPHY TECHNICIAN, Stop date: 06/29/17 9:00:00 POLYSOMNOGRAPHY TECHNICIAN Notes: Not recommended for patients with CrCl<50 ml/min (Same as:Macrobid) With food. Start Date: 06/22/17 Stop Date: 06/22/17 Status: Discontinued metoprolol 5 mg/5 ml INJ 2.5 mg, 2.5 mL, Route: IVP, Drug form: INJ, ONCE, Dosing Weight 45.909, kg, Star t date: 06/22/17 15:24:00 POLYSOMNOGRAPHY TECHNICIAN, Stop date: 06/22/17 15:24:00 POLYSOMNOGRAPHY TECHNICIAN Start Date: 06/22/17 Stop Date: 06/22/17 Status: Completed Milk of Magnesia 60 ml, Route: PO, Drug Form: SUSP, Dosing Weight 46.364, kg, ONCE, Start date: 0 06/26/17 15:56:00 POLYSOMNOGRAPHY TECHNICIAN, Stop date: 06/26/17 15:56:00 POLYSOMNOGRAPHY TECHNICIAN Notes: (Same as: Milk of Magnesia, MOM) Start Date: 06/26/17 Stop Date: 06/26/17 Status: Completed [place] 5/325 oral tablet 1 tab, Route: PO, Drug Form: TAB, Dosing Weight 72.727, kg, Q8H, PRN Pain Score 7-10, STAT, Start date: 06/21/17 21:36:00 POLYSOMNOGRAPHY TECHNICIAN, Duration: 30 day, Stop date: 06/24 21:35:00 CDT Notes: (Same as: [place] 325/5) Do not exceed 4gm/day of acetaminophen. Start Date: 06/21/17 Stop Date: 06/24/17 Status: Discontinued normal saline 0.9% IV 1,000 mL 1,000 mL, Rate: 50 ml/hr, Infuse over: 20 hr, Route: IV, Dosing Weight 72.727 kg , Total Volume: 1,000, Start date: 06/21/17 20:46:00 POLYSOMNOGRAPHY TECHNICIAN, Duration: 30 day, Stop date: 07/21/17 20:45:00 CDT, 1.8, m2 Start Date: 06/21/17 Stop Date: 06/23/17 Status: Discontinued ondansetron 4 mg, 2 mL, Route: IVP, Drug form: INJ, Q8H, Dosing Weight 72.727, kg, PRN Nause a & Vomiting, Start date: 06/21/17 21:38:00 POLYSOMNOGRAPHY TECHNICIAN, Duration: 30 day, Stop date: 07/21/17 21:37:00 CDT Notes: (Same as: Archana) MEDICATION WASTE Product Size: 4 mgProduct Was karla: ___ mg Start Date: 06/21/17 Stop Date: 06/28/17 Status: Discontinued potassium chloride 40 mEq, 2 tab, Route: PO, Drug form: ERTAB, ONCE, Dosing Weight 45.909, kg, Star t date: 06/23/17 6:41:00 POLYSOMNOGRAPHY TECHNICIAN, Stop date: 06/23/17 6:41:00 POLYSOMNOGRAPHY TECHNICIAN Notes: (Same as: K-Julian 20)"Do Not Crush" With food and full glass of water Start Date: 06/23/17 Stop Date: 06/23/17 Status: Completed potassium chloride 40 mEq, Route: PO, Drug form: ERTAB, ONCE, Dosing Weight 45.909, kg, Start date: 06/23/17 10:00:00 POLYSOMNOGRAPHY TECHNICIAN, Stop date: 06/23/17 10:00:00 POLYSOMNOGRAPHY TECHNICIAN Start Date: 06/23/17 Stop Date: 06/23/17 Status: Canceled potassium chloride 20 mEq oral tablet, extended release 40 mEq, 2 tab, Route: PO, Drug form: ERTAB, ONCE, Dosing Weight 45.909, kg, Star t date: 06/23/17 2:35:00 POLYSOMNOGRAPHY TECHNICIAN, Stop date: 06/23/17 2:35:00 POLYSOMNOGRAPHY TECHNICIAN Start Date: 06/23/17 Stop Date: 06/23/17 Status: Completed pregabalin 100 mg oral capsule 100 mg=1 cap, PO, Q12H, # 60 cap, 0 Refill(s) Start Date: 06/28/17 Stop Date: 07/28/17 Status: Ordered Saline Flush 0.9% 10 ml, Route: IVP, Drug Form: INJ, Dosing Weight 72.727, kg, PRN, PRN Line Flush , Start date: 06/21/17 21:38:00 POLYSOMNOGRAPHY TECHNICIAN, Duration: 30 day, Stop date: 07/21/17 22:37 :00 CDT Notes: (Same as: BD Posiflush) Start Date: 06/21/17 Stop Date: 06/28/17 Status: Discontinued Saline Flush 0.9% 10 ml, Route: IVP, Drug Form: INJ, Dosing Weight 72.727, kg, Q12H, Start date: 0 06/22/17 9:00:00 POLYSOMNOGRAPHY TECHNICIAN, Duration: 30 day, Stop date: 07/21/17 21:00:00 CDT Notes: (Same as: BD Posiflush) Start Date: 06/22/17 Stop Date: 06/28/17 Status: Discontinued senna 8.6 mg, 1 tab, Route: PO, Drug Form: TAB, Dosing Weight 72.727, kg, Q12H, Start date: 06/22/17 9:00:00 POLYSOMNOGRAPHY TECHNICIAN, Duration: 30 day, Stop date: 07/21/17 21:00:00 CDT Notes: (Same as: Senokot) Start Date: 06/22/17 Stop Date: 06/28/17 Status: Discontinued SEROquel 12.5 mg, 0.5 tab, Route: PO, Drug form: TAB, Bedtime, Dosing Weight 45.909, kg, Start date: 06/22/17 21:00:00 POLYSOMNOGRAPHY TECHNICIAN, Duration: 30 day, Stop date: 07/21/17 21:00:0 0 CDT Start Date: 06/22/17 Stop Date: 06/26/17 Status: Discontinued sodium chloride 1 gm oral tablet 1 gm, 1 tab, Route: PO, Drug form: TAB, Q8Hnow, Dosing Weight 45.909, kg, Priori ty: NOW, Start date: 06/22/17 13:44:00 POLYSOMNOGRAPHY TECHNICIAN, Stop date: 07/22/17 6:00:00 CDT Start Date: 06/22/17 Stop Date: 06/26/17 Status: Discontinued timolol ophthalmic 0.5% solution 1 drp, Route: BOTH EYES, BID, Drug form: SOLN, Start date: 06/22/17 9:00:00 POLYSOMNOGRAPHY TECHNICIAN, Duration: 30 day, Stop date: 07/21/17 17:00:00 CDT Start Date: 06/22/17 Stop Date: 06/28/17 Status: Discontinued tramadol 50 mg oral tablet 50 mg=1 tab, PO, Q6H, PRN Pain Score 6-10, X 3 day, # 5 tab, 0 Refill(s) Start Date: 06/28/17 Stop Date: 07/01/17 Status: Completed tramadol 50 mg oral tablet 50 mg, 1 tab, Route: PO, Drug form: TAB, Q6H, Dosing Weight 45.909, kg, PRN Pain Score 6-10, Start date: 06/24/17 7:29:00 POLYSOMNOGRAPHY TECHNICIAN, Duration: 30 day, Stop date: 06/11 7:28:00 CDT Notes: Not to exceed 400mg/day. (Same As: Dalila) Start Date: 06/24/17 Stop Date: 06/28/17 Status: Discontinued Tylenol 650 mg, 2 tab, Route: PO, Drug form: TAB, Q6H, Dosing Weight 72.727, kg, PRN Neeta n 1-3/Temp > 100.4 F, Priority: STAT, Start date: 06/21/17 21:35:00 POLYSOMNOGRAPHY TECHNICIAN, Duration: 30 day, Stop date: 07/21/17 21:34:00 CDT Start Date: 06/21/17 Stop Date: 06/28/17 Status: Discontinued vancomycin + Sodium Chloride 0.9% IV 250 mL 750 mg, Route: IVPB, Q24H, Dosing Weight 45.909, kg, Start date: 06/24/17 10:00: 00 POLYSOMNOGRAPHY TECHNICIAN, Duration: 10 day, Stop date: 07/03/17 10:00:00 CDT, ABX Indication: Othe r (specify in Comments) Notes: TIME CRITICAL MEDICATION(Same As: Vancocin)Infusion rate< 1000 mg: infuse over 1 [id number] - 1500 mg: infuse over 1.5 [id number] - 2000 mg: infuse over 2 hours> 2001 mg: infuse over 2.5 hoursFor adult patients only: Round to nearest 250 mg per Medical Staff approval MEDICATION WASTE Product Size: 1000 mgProduct Wasted: ___ mg Start Date: 06/24/17 Stop Date: 06/25/17 Status: Discontinued vancomycin + Sodium Chloride 0.9% IV 250 mL 1.25 gm, Route: IVPB, ONCE, Priority: STAT, Start date: 06/23/17 9:58:00 POLYSOMNOGRAPHY TECHNICIAN, St op date: 06/23/17 9:58:00 POLYSOMNOGRAPHY TECHNICIAN, ABX Indication: ED - Suspected Sepsis Notes: TIME CRITICAL MEDICATION(Same As: Vancocin)Infusion rate< 1000 mg: infuse over 1 [id number] - 1500 mg: infuse over 1.5 hoursVancomycin FOR IV SET [id number] - 2000 mg: infuse over 2 hours> 2001 mg: infuse over 2.5 hoursFor adult patients only: Round to nearest 250 mg per Medical Staff approval MEDICATION WASTE Product Size: 1000 mgProduct Wasted: ___ mg Start Date: 06/23/17 Stop Date: 06/23/17 Status: Completed Results ELECTROLYTES 1 2 3 Most recent to oldest [Reference Range]: 139 mEq/L (06/27/17 3:59 AM) 137 mEq/L (06/26/17 5:28 AM) 138 mEq/L (06/25/17 5:45 AM) Sodium Lvl [135-145 mEq/L] 3.5 mEq/L (06/26/17 5:28 AM) 3.6 mEq/L (06/25/17:39 AM) 4.1 mEq/L (06/24/17:02 AM) Potassium Lvl [3.5-5.1 mEq/L] 101 mEq/L (06/26/17:28 AM) 107 mEq/L (06/25/1739 AM) 105 mEq/L (06/24/17:02 AM) Chloride Lvl [95-109 mEq/L] 28 mEq/L (06/26/17:28 AM) 28 mEq/L (06/25/17:39 AM) 23 mEq/L *LOW* (06/24/17:02 AM) CO2 [24-32 mEq/L] 11.5 mEq/L (06/26/17:28 AM) 12.6 mEq/L (06/25/17:39 AM) 14.1 mEq/L (06/24/17:02 AM) AGAP [10.0-20.0 mEq/L] CHEM PANEL 1 2 3 Most recent to oldest [Reference Range]: 0.28 mg/dL *LOW* (06/26/17:28 AM) 0.35 mg/dL *LOW* (06/25/17:39 AM) 0.31 mg/dL *LOW* (06/24/17 12:02 AM) Creatinine Lvl [0.50-1.40 mg/dL] 105 mL/min/1.73m2 1 *NA* (06/26/17:28 AM) 97 mL/min/1.73m2 2 *NA* (06/25/17 12:39 AM) 101 mL/min/1.73m2 3 *NA* (06/24/17 12:02 AM) eGFR 6 mg/dL *LOW* (06/26/17:28 AM) 5 mg/dL *LOW* (06/25/17:39 AM) 5 mg/dL *LOW* (06/24/17 12:02 AM) BUN [7-22 mg/dL] 97 mg/dL (06/26/17:28 AM) 113 mg/dL *HI* (06/25/17 12:39 AM) 87 mg/dL (06/24/17 12:02 AM) Glucose Lvl [70-99 mg/dL] 8.4 mg/dL *LOW* (06/26/17 5:28 AM) 8.5 mg/dL (06/25/17 12:39 AM) 7.9 mg/dL *LOW* (06/24/17 12:02 AM) Calcium Lvl [8.5-10.5 mg/dL] 1.65 ng/mL *HI* (06/24/17 12:02 AM) 2.13 ng/mL 4 *CRIT* (06/23/17 4:23 AM) Procalcitonin Lvl [0.00-0.10 ng/mL] 1Result Comment: The eGFR is calculated using [...] be mul tiplied by the estimated BMI. 3Result Comment: The eGFR is calculated using the [...] be mul tiplied by the estimated BMI. 4Result Comment: Critical Result(s) called to bob Fernandez at 06/23/2017 06:19 by HAMILTON. Read back OK. CARDIAC ENZYMES 1 2 3 Most recent to oldest [Reference Range]: 124 unit/L (06/22/17 5:34 AM) 122 unit/L (06/22/17 12:55 AM) Total CK [12-191 unit/L] 1.6 ng/mL (06/22/17 5:34 AM) 1.8 ng/mL (06/22/17 12:55 AM) CK MB [0.5-3.6 ng/mL] 1.3 (06/22/17 5:34 AM) 1.5 (06/22/17 12:55 AM) CK MB Index [0.0-2.5] <0.010 ng/mL (06/22/17 5:34 AM) <0.010 ng/mL (06/22/17 12:55 AM) Troponin-T [0.000-0.100 ng/mL] <0.02 ng/mL (06/22/17 3:21 PM) <0.02 ng/mL (06/22/17 5:34 AM) <0.02 ng/mL (06/22/17 12:55 AM) Troponin-I [0.00-0.40 ng/mL] URINE AND STOOL 1 2 3 Most recent to oldest [Reference Range]: Clear (06/23/17 4:58 AM) Slight Cloudy (06/21/17 11:13 PM) UA Turbidity [Clear] Yellow *NA* (06/23/17 4:58 AM) Yellow *NA* (06/21/17 11:13 PM) UA Color [Yellow] 6.0 (06/23/17 4:58 AM) UA pH [5.0-8.0] 7.0 (06/21/17 11:13 PM) UA pH [5.0-8.0] 1.020 (06/23/17 4:58 AM) UA Spec Grav [<=1.030] 1.010 (06/21/17 11:13 PM) UA Spec Grav [<=1.030] 150 mg/dL *ABN* (06/23/17 4:58 AM) UA Glucose [Negative mg/dL] Negative (06/21/17 11:13 PM) UA Glucose [Negative] Trace *ABN* (06/23/17 4:58 AM) Trace *ABN* (06/21/17 11:13 PM) UA Blood [Negative] 40 mg/dL *ABN* (06/23/17 4:58 AM) 15 mg/dL *ABN* (06/21/17 11:13 PM) UA Ketones [Negative mg/dL] 30 mg/dL *ABN* (06/23/17 4:58 AM) UA Protein [Negative mg/dL] Negative (06/21/17 11:13 PM) UA Protein [Negative] <=1.0 mg/dL *NA* (06/23/17 4:58 AM) UA Urobilinogen [0.1-1.0 mg/dL] 0.2 EU/dL (06/21/17 11:13 PM) UA Urobilinogen [0.1-1.0 EU/dL] Negative *NA* (06/23/17 4:58 AM) Negative *NA* (06/21/17 11:13 PM) UA Bili [Negative] Moderate *ABN* (06/23/17 4:58 AM) Small *ABN* (06/21/17 11:13 PM) UA Leuk Est [Negative] Negative (06/23/17 4:58 AM) Negative (06/21/17 11:13 PM) UA Nitrite [Negative] 16 /HPF *HI* (06/23/17 4:58 AM) UA WBC [0-5 /HPF] 11-20 /HPF *ABN* (06/21/17 11:13 PM) UA WBC [None Seen /HPF] 2 /HPF (06/23/17 4:58 AM) 0-2 /HPF (06/21/17 11:13 PM) UA RBC [0-2 /HPF] Moderate /HPF (06/21/17 11:13 PM) UA Bacteria [None Seen /HPF] Moderate /LPF *ABN* (06/23/17 4:58 AM) Few /LPF (06/21/17 11:13 PM) UA Sq Epi [Few /LPF] Few /LPF *NA* (06/23/17 4:58 AM) UA Mucus [None Seen /LPF] Occasional /HPF *ABN* (06/23/17 4:58 AM) UA Devers Yeast [None Seen /HPF] HEMATOLOGY 1 2 3 Most recent to oldest [Reference Range]: 5.3 K/CMM (06/26/17 5:28 AM) 8.4 K/CMM (06/25/17 12:39 AM) 9.1 K/CMM (06/24/17 12:02 AM) WBC [3.7-10.4 K/CMM] 3.25 M/CMM *LOW* (06/26/17 5:28 AM) 3.20 M/CMM *LOW* (06/25/17 12:39 AM) 3.02 M/CMM *LOW* (06/24/17 12:02 AM) RBC [4.20-5.40 M/CMM] 11.0 g/dL *LOW* (06/26/17 5:28 AM) 10.8 g/dL *LOW* (06/25/17 12:39 AM) 10.4 g/dL *LOW* (06/24/17 12:02 AM) Hgb [12.0-16.0 g/dL] 31.7 % *LOW* (06/26/17 5:28 AM) 31.2 % *LOW* (06/25/17 12:39 AM) 29.5 % *LOW* (06/24/17 12:02 AM) Hct [36.0-48.0 %] 97.7 fL (06/26/17 5:28 AM) 97.6 fL (06/25/17 12:39 AM) 97.8 fL (06/24/17 12:02 AM) MCV [80.0-98.0 fL] 33.8 pg *HI* (06/26/17 5:28 AM) 33.7 pg *HI* (06/25/17 12:39 AM) 34.5 pg *HI* (06/24/17:02 AM) MCH [27.0-31.0 pg] 34.6 g/dL (06/26/17 5:28 AM) 34.5 g/dL (06/25/17 12:39 AM) 35.3 g/dL (06/24/17 12:02 AM) MCHC [32.0-36.0 g/dL] 13.2 % (06/26/17 5:28 AM) 12.8 % (06/25/17 12:39 AM) 12.9 % (06/24/17 12:02 AM) RDW [11.5-14.5 %] 8.6 fL (06/26/17 5:28 AM) 8.9 fL (06/25/17 12:39 AM) 9.3 fL (06/24/17 12:02 AM) MPV [7.4-10.4 fL] 236 K/CMM (06/26/17 5:28 AM) 217 K/CMM (06/25/17 12:39 AM) 192 K/CMM (06/24/17 12:02 AM) Platelet [133-450 K/CMM] 58.6 % (06/26/17 5:28 AM) 79.7 % *HI* (06/25/17 12:39 AM) 84.0 % *HI* (06/24/17 12:02 AM) Segs [45.0-75.0 %] 30.0 % (06/26/17 5:28 AM) 13.2 % *LOW* (06/25/17 12:39 AM) 9.2 % *LOW* (06/24/17 12:02 AM) Lymphocytes [20.0-40.0 %] 7.3 % (06/26/17 5:28 AM) 4.5 % (06/25/17 12:39 AM) 3.3 % (06/24/17 12:02 AM) Monocytes [2.0-12.0 %] 3.1 % (06/26/17 5:28 AM) 2.1 % (06/25/17 12:39 AM) 2.7 % (06/24/17 12:02 AM) Eosinophils [0.0-4.0 %] 1.0 % (06/26/17 5:28 AM) 0.5 % (06/25/17 12:39 AM) 0.8 % (06/24/17 12:02 AM) Basophils [0.0-1.0 %] 3.1 K/CMM (06/26/17 5:28 AM) 6.7 K/CMM (06/25/17 12:39 AM) 7.7 K/CMM (06/24/17 12:02 AM) Segs-Bands # [1.5-8.1 K/CMM] 1.6 K/CMM (06/26/17 5:28 AM) 1.1 K/CMM (06/25/17 12:39 AM) 0.8 K/CMM *LOW* (06/24/17 12:02 AM) Lymphocytes # [1.0-5.5 K/CMM] 0.4 K/CMM (06/26/17 5:28 AM) 0.4 K/CMM (06/25/17 12:39 AM) 0.3 K/CMM (06/24/17 12:02 AM) Monocytes # [0.0-0.8 K/CMM] 0.2 K/CMM (06/26/17 5:28 AM) 0.2 K/CMM (06/25/17 12:39 AM) 0.2 K/CMM (06/24/17 12:02 AM) Eosinophils # [0.0-0.5 K/CMM] 0.1 K/CMM (06/26/17 5:28 AM) 0.1 K/CMM (06/24/17 12:02 AM) 0.1 K/CMM (06/23/17 12:14 AM) Basophils # [0.0-0.2 K/CMM] 121 seconds *HI* (06/21/17 8:47 PM) ACT (TEG) Rapid [86-118 seconds] 0.6 minutes *NA* (06/21/17 8:47 PM) Split Point Rapid 0.8 minutes *HI* (06/21/17 8:47 PM) R-time Rapid [0.4-0.7 minutes] 1.3 minutes (06/21/17 8:47 PM) K-time Rapid [0.6-2.3 minutes] 74 degrees (06/21/17 8:47 PM) Angle Rapid [64-80 degrees] 65 mm (06/21/17 8:47 PM) Max Amplitude Rapid [52-71 mm] 9.3 K d/sc (06/21/17 8:47 PM) G-value Rapid [5.0-11.6 K d/sc] 1.6 % (06/21/17 8:47 PM) Estimated % Lysis Rapid [0.0-7.5 %] 590 ARU *NA* (06/22/17 1:02 AM) ASA Effect Plt BACTERIAL - SEROLOGY 1 2 3 Most recent to oldest [Reference Range]: Negative (06/22/17 1:10 AM) MRSA by PCR Immunizations Given and Recorded Vaccine Date Status [...]
--- OUTSIDE RECORDS SUMMARY | 2018-02-06 13:21 | XMS REPORT | Summary of Care ---
Author Author [facility] Address Unknown Phone Unavailable Encounter LINDA Barboza(LUCÍA) [id number] Date(s): 06/15/17 - 06/20/17 [facility] [address] [place] [address]- Encounter Diagnosis Urinary tract infection, site not specified (Final) - 06/28/17 Toxic encephalopathy (Final) - Moderate protein-calorie malnutrition (Final) - Dehydration (Final) - Dementia in other diseases classified elsewhere with behavioral disturbance (Final) - Body mass index (BMI) 19.9 or less, adult (Final) - Alzheimer's disease, unspecified (Final) - Unspecified Escherichia coli [E. coli] as the cause of diseases classified elsew here (Final) - Hyperlipidemia, unspecified (Final) - Age-related osteoporosis without current pathological fracture (Final) - Unspecified glaucoma (Final) - Essential (primary) hypertension (Final) - Hypokalemia (Final) - Encounter for immunization (Final) - Discharge Disposition: Shelter Facility Attending Physician: Shaggy Jain MD Admitting Physician: Shaggy Jain MD Vital Signs 1 2 3 Most recent to oldest [Reference Range]: 152.4 cm (06/15/17 10:08 PM) Height 98.8 DegF (06/20/17 3:28 PM) 97.4 DegF (06/20/17 11:01 AM) 98.3 DegF (06/20/17 7:17 AM) Temperature Oral [96.4-99.1 DegF] 120/69 mmHg (06/20/17 3:28 PM) 124/69 mmHg (06/20/17 11:01 AM) 122/62 mmHg (06/20/17 7:17 AM) Blood Pressure [90-140/60-90 mmHg] 16 BRMIN (06/20/17 3:28 PM) 16 BRMIN (06/20/17 11:01 AM) 16 BRMIN (06/20/17 7:17 AM) Respiratory Rate [14-20 BRMIN] 71 bpm (06/20/17 3:28 PM) 73 bpm (06/20/17 11:01 AM) 79 bpm (06/20/17 7:17 AM) Peripheral Pulse Rate [60-100 bpm] 45.455 kg (06/15/17 10:08 PM) 61.364 kg (06/15/17 1:36 PM) Weight 19.57 m2 (06/15/17 10:08 PM) Body Mass Index Problem List Condition Effective Dates Status Health Status Informant Moderate Active Chronic ; protein-calorie malnutrition(Confirm ed) Allergies, Adverse Reactions, Alerts Substance Reaction Severity Status penicillins Active Macrobid1 Active 1Rash on body and face. Medications acetaminophen-hydrocodone 325 mg-5 mg oral tablet 2 tab, Route: PO, Drug Form: TAB, Dosing Weight 45.455, kg, Q4H, PRN Pain Score 7-10, Start date: 06/15/17 22:44:00 CDS SALES ADVISOR, Duration: 30 day, Stop date: 07/15/17 2 2:43:00 CDT Notes: (Same as: Barling 325/5) Do not exceed 4gm/day of acetaminophen. Start Date: 06/15/17 Stop Date: 06/20/17 Status: Discontinued Cipro 400 mg, 200 mL, Route: IVPB, Drug form: INJ, [id number], Dosing Weight 45.455, kg, Start date: 06/16/17 19:00:00 CDS SALES ADVISOR, Duration: 3 day, Stop date: 06/18/17 19:00:00 CDS SALES ADVISOR, ABX Indication: Urinary Tract Infection Notes: Do not refrigerate Start Date: 06/16/17 Stop Date: 06/18/17 Status: Completed Cipro 400 mg, 200 mL, Route: IVPB, Drug form: INJ, [id number], Dosing Weight 45.455, kg, Start date: 06/15/17 23:00:00 CDS SALES ADVISOR, Duration: 3 day, Stop date: 06/17/17 23:00:00 CDS SALES ADVISOR, ABX Indication: Urinary Tract Infection Notes: Do not refrigerate Start Date: 06/15/17 Stop Date: 06/15/17 Status: Discontinued ciprofloxacin 400 mg, Route: IVPB, ONCE, Dosing Weight 61.364, kg, Priority: STAT, Start date: 06/15/17 16:09:00 CDS SALES ADVISOR, Stop date: 06/15/17 16:09:00 CDS SALES ADVISOR, ABX Indication: Urinary Tract Infection Start Date: 06/15/17 Stop Date: 06/15/17 Status: Completed Crestor 10 mg, 2 tab, Route: PO, Drug form: TAB, Bedtime, Dosing Weight 45.455, kg, Star t date: 06/16/17 21:00:00 CDS SALES ADVISOR, Duration: 30 day, Stop date: 07/15/17 21:00:00 CD T Notes: Same as Crestor Start Date: 06/16/17 Stop Date: 06/20/17 Status: Discontinued Crestor 10 mg oral tablet 10 mg=1 tab, PO, Bedtime, # 90 tab, 0 Refill(s) Start Date: 06/15/17 Status: Ordered Fosamax 75 mg, PO, qWeek, 0 Refill(s) Start Date: 06/15/17 Stop Date: 06/22/17 Status: Discontinued latanoprost ophthalmic 1 drp, Route: BOTH EYES, QPM, Drug form: SOLN, Start date: 06/16/17 17:00:00 CDS SALES ADVISOR , Duration: 30 day, Stop date: 07/15/17 17:00:00 CDT Notes: Keep refrigerated. (Same as:Xalatan)Opened bottle may be stored at room t emperature for 6 weeks Start Date: 06/16/17 Stop Date: 06/20/17 Status: Discontinued latanoprost ophthalmic 1 drp, BOTH EYES, QPM, 0 Refill(s) Start Date: 06/15/17 Status: Ordered Lexapro 10 mg, 1 tab, Route: PO, Drug form: TAB, Daily, Dosing Weight 45.455, kg, Start date: 06/17/17 9:00:00 CDS SALES ADVISOR, Duration: 30 day, Stop date: 07/16/17 9:00:00 CDT Notes: (Same as: Lexapro) Start Date: 06/17/17 Stop Date: 06/20/17 Status: Discontinued Lexapro 10 mg oral tablet 10 mg=1 tab, PO, Daily, # 90 tab, 0 Refill(s) Start Date: 06/15/17 Status: Ordered Macrobid 100 mg oral capsule 100 mg=1 cap, PO, BID, X 10 day, # 20 cap, 0 Refill(s) Start Date: 06/19/17 Stop Date: 06/28/17 Status: Discontinued meropenem + Sodium Chloride 0.9% IV 100 mL 500 mg, Route: IVPB, [id number], Dosing Weight 45.455, kg, CrCL=30 -49 ml/min, Exten ded infusion, infuse over 3 hours, Start date: 06/20/17 21:00:00 CDS SALES ADVISOR, Duration: 5 day, Stop date: 06/25/17 13:00:00 CDS SALES ADVISOR, ABX Indication: Urinary Tract Infection Notes: Same as Merrem MEDICATION WASTE Product Size: 500 mgProduct Wast ed: ___ mg Start Date: 06/20/17 Stop Date: 06/20/17 Status: Canceled meropenem + sterile water 10 mL 500 mg, Route: IVP, Drug form: PDR/INJ, ONCE, Start date: 06/20/17 13:00:00 CDS SALES ADVISOR, Stop date: 06/20/17 13:00:00 CDS SALES ADVISOR, ABX Indication: Urinary Tract Infection Notes: Same as Merrem MEDICATION WASTE Product Size: 500 mgProduct Wast ed: ___ mg Start Date: 06/20/17 Stop Date: 06/20/17 Status: Completed ondansetron 4 mg, 2 mL, Route: IVP, Drug form: INJ, Q6H, Dosing Weight 45.455, kg, PRN Nause a & Vomiting, Start date: 06/15/17 22:44:00 CDS SALES ADVISOR, Duration: 30 day, Stop date: 07/15/17 22:43:00 CDT Notes: (Same as: Zofran) MEDICATION WASTE Product Size: 4 mgProduct Was karla: ___ mg Start Date: 06/15/17 Stop Date: 06/20/17 Status: Discontinued pneumococcal 13-valent vaccine 0.5 mL, Route: IM, Drug Form: INJ, Daily, Start date: 06/16/17 9:00:00 CDS SALES ADVISOR, Dura tion: 1 doses or times, Stop date: 06/16/17 9:00:00 CDS SALES ADVISOR Notes: Shake well prior to use (Same as: Prevnar 13) Start Date: 06/16/17 Stop Date: 06/16/17 Status: Completed potassium chloride 40 mEq, 2 tab, Route: PO, Drug form: ERTAB, Q4H, Dosing Weight 45.455, kg, Prior ity: NOW, Start date: 06/17/17 9:10:00 CDS SALES ADVISOR, Duration: 2 doses or times, Stop sandi e: 06/17/17 13:30:00 CDS SALES ADVISOR Notes: (Same as: K-Dur 20)"Do Not Crush" With food and full glass of water Start Date: 06/17/17 Stop Date: 06/17/17 Status: Completed SEROquel 25 mg, 1 tab, Route: PO, Drug form: TAB, Bedtime, Dosing Weight 45.455, kg, Star t date: 06/16/17 21:00:00 CDS SALES ADVISOR, Duration: 30 day, Stop date: 07/15/17 21:00:00 CD T Notes: (Same as: SEROquel) Start Date: 06/16/17 Stop Date: 06/20/17 Status: Discontinued SEROquel 25 mg oral tablet 25 mg=1 tab, PO, Bedtime, 0 Refill(s) Start Date: 06/15/17 Stop Date: 06/28/17 Status: Discontinued Sodium Chloride 0.9% (Bolus) IV 500 mL, 500 ml/hr, Infuse Over: 1 hr, Route: IV, 500, Drug form: INJ, ONCE, Prio rity: STAT, Dosing Weight 61.364 kg, Start date: 06/15/17 14:33:00 CDS SALES ADVISOR, Stop sandi e: 06/15/17 14:33:00 CDS SALES ADVISOR Start Date: 06/15/17 Stop Date: 06/15/17 Status: Completed timolol ophthalmic 0.25% solution 1 drp, BOTH EYES, BID, # 5 ml, 0 Refill(s) Start Date: 06/15/17 Status: Ordered timolol ophthalmic 0.25% solution 1 drp, Route: BOTH EYES, BID, Drug form: SOLN, Start date: 06/16/17 17:00:00 CDS SALES ADVISOR , Duration: 30 day, Stop date: 07/16/17 9:00:00 CDT Notes: (Same As: Timoptic, Betimol) Start Date: 06/16/17 Stop Date: 06/20/17 Status: Discontinued Results ELECTROLYTES 1 2 3 Most recent to oldest [Reference Range]: 136 mEq/L (06/20/17 5:14 AM) 138 mEq/L (06/18/17 4:20 AM) 141 mEq/L (06/17/17 6:18 AM) Sodium Lvl [135-145 mEq/L] 3.6 mEq/L (06/20/17 5:14 AM) 4.0 mEq/L (06/18/17 4:20 AM) 3.5 mEq/L (06/17/17 6:18 AM) Potassium Lvl [3.5-5.1 mEq/L] 99 mEq/L (06/20/17 5:14 AM) 104 mEq/L (06/18/17 4:20 AM) 105 mEq/L (06/17/17 6:18 AM) Chloride Lvl [95-109 mEq/L] 26 mEq/L (06/20/17 5:14 AM) 30 mEq/L (06/18/17 4:20 AM) 25 mEq/L (06/17/17 6:18 AM) CO2 [24-32 mEq/L] 14.6 mEq/L (06/20/17 5:14 AM) 8.0 mEq/L *LOW* (06/18/17 4:20 AM) 14.5 mEq/L (06/17/17 6:18 AM) AGAP [10.0-20.0 mEq/L] CHEM PANEL 1 2 3 Most recent to oldest [Reference Range]: 0.35 mg/dL *LOW* (06/20/17 5:14 AM) 0.48 mg/dL *LOW* (06/18/17 4:20 AM) 0.46 mg/dL *LOW* (06/17/17 6:18 AM) Creatinine Lvl [0.50-1.40 mg/dL] 97 mL/min/1.73m2 1 *NA* (06/20/17 5:14 AM) 88 mL/min/1.73m2 2 *NA* (06/18/17 4:20 AM) 89 mL/min/1.73m2 3 *NA* (06/17/17 6:18 AM) eGFR 5 mg/dL *LOW* (06/20/17 5:14 AM) 7 mg/dL (06/18/17 4:20 AM) 9 mg/dL (06/17/17 6:18 AM) BUN [7-22 mg/dL] 14 (06/15/17 3:33 PM) B/C Ratio [6-25] 88 mg/dL (06/20/17 5:14 AM) 89 mg/dL (06/18/17 4:20 AM) 94 mg/dL (06/17/17 6:18 AM) Glucose Lvl [70-99 mg/dL] 7.9 g/dL (06/15/17 3:33 PM) Total Protein [6.4-8.4 g/dL] 3.6 g/dL (06/15/17 3:33 PM) Albumin Lvl [3.5-5.0 g/dL] 4.3 g/dL *HI* (06/15/17 3:33 PM) Globulin [2.7-4.2 g/dL] 0.8 (06/15/17 3:33 PM) A/G Ratio [0.7-1.6] 8.4 mg/dL *LOW* (06/20/17 5:14 AM) 8.7 mg/dL (06/18/17 4:20 AM) 8.5 mg/dL (06/17/17 6:18 AM) Calcium Lvl [8.5-10.5 mg/dL] 11 unit/L (06/15/17 3:33 PM) ALT [0-65 unit/L] 11 unit/L (06/15/17 3:33 PM) AST [0-37 unit/L] 76 unit/L (06/15/17 3:33 PM) Alk Phos [39-136 unit/L] 0.4 mg/dL (06/15/17 3:33 PM) Bili Total [0.2-1.3 mg/dL] 1Result Comment: The eGFR is calculated using [...] tiplied by the estimated BMI. CARDIAC ENZYMES 1 2 3 Most recent to oldest [Reference Range]: 48 unit/L (06/15/17 3:33 PM) Total CK [12-191 unit/L] <0.02 ng/mL (06/15/17 3:33 PM) Troponin-I [0.00-0.40 ng/mL] URINE AND STOOL 1 2 3 Most recent to oldest [Reference Range]: Marked *ABN* (06/15/17 3:33 PM) UA Turbidity [Clear] Yellow *NA* (06/15/17 3:33 PM) UA Color [Yellow] 5.0 (06/15/17 3:33 PM) UA pH [5.0-8.0] 1.006 (06/15/17 3:33 PM) UA Spec Grav [<=1.030] Negative mg/dL *NA* (06/15/17 3:33 PM) UA Glucose [Negative mg/dL] Small *ABN* (06/15/17 3:33 PM) UA Blood [Negative] Negative mg/dL *NA* (06/15/17 3:33 PM) UA Ketones [Negative mg/dL] Negative mg/dL (06/15/17 3:33 PM) UA Protein [Negative mg/dL] <=1.0 mg/dL *NA* (06/15/17 3:33 PM) UA Urobilinogen [0.1-1.0 mg/dL] Negative *NA* (06/15/17 3:33 PM) UA Bili [Negative] Large *ABN* (06/15/17 3:33 PM) UA Leuk Est [Negative] Positive *ABN* (06/15/17 3:33 PM) UA Nitrite [Negative] 63 /HPF *HI* (06/15/17 3:33 PM) UA WBC [0-5 /HPF] 13 /HPF *HI* (06/15/17 3:33 PM) UA RBC [0-2 /HPF] Many /HPF *ABN* (06/15/17 3:33 PM) UA Bacteria [None Seen /HPF] Many /LPF *ABN* (06/15/17 3:33 PM) UA Sq Epi [Few /LPF] 3 /LPF *HI* (06/15/17 3:33 PM) UA Renal Epi [<=0 /LPF] Few /LPF *NA* (06/15/17 3:33 PM) UA Mucus [None Seen /LPF] HEMATOLOGY 1 2 3 Most recent to oldest [Reference Range]: 5.6 K/CMM (06/20/17 5:14 AM) 5.1 K/CMM (06/17/17 6:18 AM) 4.8 K/CMM (06/16/17 5:47 AM) WBC [3.7-10.4 K/CMM] 3.48 M/CMM *LOW* (06/20/17 5:14 AM) 3.36 M/CMM *LOW* (06/17/17 6:18 AM) 3.54 M/CMM *LOW* (06/16/17 5:47 AM) RBC [4.20-5.40 M/CMM] 11.9 g/dL *LOW* (06/20/17 5:14 AM) 11.4 g/dL *LOW* (06/17/17 6:18 AM) 12.4 g/dL (06/16/17 5:47 AM) Hgb [12.0-16.0 g/dL] 34.2 % *LOW* (06/20/17 5:14 AM) 33.1 % *LOW* (06/17/17 6:18 AM) 34.7 % *LOW* (06/16/17 5:47 AM) Hct [36.0-48.0 %] 98.3 fL *HI* (06/20/17 5:14 AM) 98.5 fL *HI* (06/17/17:18 AM) 97.9 fL (06/16/17 5:47 AM) MCV [80.0-98.0 fL] 34.2 pg *HI* (06/20/17 5:14 AM) 33.9 pg *HI* (06/17/17 6:18 AM) 35.0 pg *HI* (06/16/17 5:47 AM) MCH [27.0-31.0 pg] 34.7 g/dL (06/20/17 5:14 AM) 34.4 g/dL (06/17/17 6:18 AM) 35.8 g/dL (06/16/17 5:47 AM) MCHC [32.0-36.0 g/dL] 12.8 % (06/20/17 5:14 AM) 13.2 % (06/17/17 6:18 AM) 13.0 % (06/16/17 5:47 AM) RDW [11.5-14.5 %] 8.8 fL (06/20/17 5:14 AM) 8.2 fL (06/17/17 6:18 AM) 8.1 fL (06/16/17 5:47 AM) MPV [7.4-10.4 fL] 241 K/CMM (06/20/17 5:14 AM) 255 K/CMM (06/17/17 6:18 AM) 266 K/CMM (06/16/17 5:47 AM) Platelet [133-450 K/CMM] 59.0 % (06/20/17 5:14 AM) 55.0 % (06/17/17 6:18 AM) 53.6 % (06/16/17 5:47 AM) Segs [45.0-75.0 %] 32.3 % (06/20/17 5:14 AM) 36.3 % (06/17/17 6:18 AM) 38.5 % (06/16/17 5:47 AM) Lymphocytes [20.0-40.0 %] 7.1 % (06/20/17 5:14 AM) 7.1 % (06/17/17 6:18 AM) 6.9 % (06/16/17 5:47 AM) Monocytes [2.0-12.0 %] 0.9 % (06/20/17 5:14 AM) 1.0 % (06/17/17 6:18 AM) 0.6 % (06/16/17 5:47 AM) Eosinophils [0.0-4.0 %] 0.7 % (06/20/17 5:14 AM) 0.6 % (06/17/17 6:18 AM) 0.4 % (06/16/17 5:47 AM) Basophils [0.0-1.0 %] 3.3 K/CMM (06/20/17 5:14 AM) 2.8 K/CMM (06/17/17 6:18 AM) 2.5 K/CMM (06/16/17 5:47 AM) Segs-Bands # [1.5-8.1 K/CMM] 1.8 K/CMM (06/20/17 5:14 AM) 1.8 K/CMM (06/17/17 6:18 AM) 1.8 K/CMM (06/16/17 5:47 AM) Lymphocytes # [1.0-5.5 K/CMM] 0.4 K/CMM (06/20/17 5:14 AM) 0.4 K/CMM (06/17/17 6:18 AM) 0.3 K/CMM (06/16/17 5:47 AM) Monocytes # [0.0-0.8 K/CMM] 0.1 K/CMM (06/20/17 5:14 AM) 0.1 K/CMM (06/17/17 6:18 AM) Eosinophils # [0.0-0.5 K/CMM] 0.1 K/CMM (06/15/17 3:33 PM) Basophils # [0.0-0.2 K/CMM] Immunizations Given and Recorded Vaccine Date Status [...] No entered on: 06/21/17 Assessment and Plan Extracted from: Title: Clinical Document Author: Amador Bradford MD Date: 06/16/17 full H&P dictated, #[id number] date/time: 06/15/2017 22:34
== END 2018-02-02 16:34 | disposition home or self-care (01) ==
LOC: ER 11:29
DX: R10.33 Periumbilical pain (principal); R11.2 Nausea with vomiting, unspecified; N30.90 Cystitis, unspecified without hematuria
CPT/HCPCS: 36415; 74177; 80053; 81001; 82150; 82550; 82553; 83690; 84484; 85025; 87086; 87186; 93005; 99284; J0696; J2405; J7040; Q9967